=== PATIENT | male | born 1950 | race African-American/Black ===

== ENCOUNTER 2016-06-20 07:44 | Inpatient (IN) ==
[2016-06-20] MEDS ORDERED: ENOXAPARIN 100 MG/ML SYRINGE SUBCUT STA (07:50)
[2016-06-20] MEDS ORDERED: ASPIRIN 325 MG TABLET PO STA (07:50)
[2016-06-20] MEDS ORDERED: NITROGLYCERIN 2% OINT 1 INCH/GM PACK TOP STA (07:50)
[2016-06-20] MEDS ORDERED: ALUM/MAG/SIMETH/LIDO VISC 1:1 30 ML BOTTLE PO STA (07:50)
[2016-06-20] MEDS ORDERED: NITROGLYCERIN SL 0.4 MG TABLET SL PRN (07:50)
[2016-06-20] MEDS ORDERED: MORPHINE 2 MG/1 ML SYRINGE IV PRN (07:50)
[2016-06-20] MEDS ORDERED: METOPROLOL TARTRATE 5 MG/5 ML VIAL IV STA (07:50)
[2016-06-20] MEDS ORDERED: ONDANSETRON 4 MG/2 ML VIAL IV STA (07:50)
--- NOTE | 2016-06-20 07:54 | EKG Report ---
Stationary ECG Study [facility] ER Test Date: 06/20/2016 7:52:27 AM Pat Name: DULCE RENAE Department: Room: Gender: M Prep Cook: : 1950 Requested by: Favio Garcia Order Number: [id number] Reading MD: CHRISTEL ARDON Intervals [place] Rate: 131 P: 999 MS: 0 QRS: -21 QRSD: 118 T: 161 QT: 329 QTc: 406 Interpretive Statements SUPRAVENTRICULAR TACHYCARDIA LOW QRS VOLTAGE IN EXTREMITY LEADS POSSIBLE ANTERIOR MYOCARDIAL INFARCTION, PROBABLY OLD Electronically Signed On 06-20-16 19:06:55 CDT by CHRISTEL ARDON [id number]
--- NOTE | 2016-06-20 07:56 | Emergency Department Note ---
Vitor Malave Jamie, am scribing for, and in the presence of, Favio Valdes MD 07: 53. Keisha Malave James D, MD, personally performed the services described in this documentation, ascribed by David Adler in my presence, and it is both accurate and complete 755 . Arrival - Arrival Limitations: No Limitations Source: Patient, RN Notes Reviewed Time Seen by Provider: 06/20/16 07:47 - History of Present Illness HPI Narrative: Patient is a 65 y/o black male who is presented to the ED by EMS for c/o chest pain associated with SOB, nausea, and vomiting. Patient states sxs onset at approximately 0700 while at dialysis. He reports the pain as mid-sternal and sharp. Patient has a PMHx of cardiac bypass and stents. He denies diaphoresis, fever/chills, or abdominal pain. Onset (ago): hour(s) (1) Consistency: constant Severity: moderate Allergies/Adverse Reactions: Allergies Allergy/AdvReac Type Severity Reaction Status Date / Time No Known Allergies Allergy Verified 05/21/16 06:47 Home Medications: Home Medications Medication Instructions Recorded Confirmed Type Aspirin EC Tab 81 mg PO DAILY #30 tablet 03/25/15 06/20/16 Rx Metoprolol Tartrate Tab [Lopressor 25 mg PO BID #60 tablet 03/25/15 06/20/16 Rx Tab] Nitroglycerin Sl Tab [Nitrostat] 0.4 mg SL Q5M PRN #25 tablet 03/25/15 06/20/16 Rx Pantoprazole Tab [Protonix Tab] 40 mg PO DAILY #30 tablet 03/25/15 06/20/16 Rx Ranolazine [Ranexa] 500 mg PO BID #60 tablet 03/25/15 06/20/16 Rx Atorvastatin [Lipitor] 40 mg PO BEDTIME 05/15/16 06/20/16 History Review of System - Review of System 12 point system: reviewed and no additional remarkable complaints except as stated - Review of System Constitutional: Absent: chills, diaphoresis, fever, weakness Respiratory: Present: respiratory distress. Absent: cough Cardiovascular: Present: chest pain Gastrointestinal: Present: nausea, vomiting. Absent: abdominal pain, diarrhea, constipation Musculoskeletal: Absent: joint swelling Skin: Absent: rash, change in color Neurological: Absent: headache, weakness, numbness, confusion Hematological/Lymphatic: Absent: easy bleeding, easy bruising Medical,Surgical,& Family Hx - Medical History Cardio: History of: CHF, Hypertension, [place] Neurology: History of: TIA Endocrine: History of: Diabetes Mellitus (IDDM), Dyslipidemia Respiratory: History of: Obstructive Sleep Apnea Renal: History of: Dialysis, Renal Failure Gastrointestinal: History of: GI Problems (occasional constipation) Hematology: History of: Anemia - Surgical History Cardiac Surgeries: Sugical HX of: Cardiac Surgery (CABG X2) Thoracic Surgeries: Surgical HX of;: Kidney (Renal Surgery) (cauterized/ embolized to stop bleeding) Patient denies;: Organ Transplant Neurologic Surgeries: Patient denies: Neurologic Surgery Abdominal Surgeries: Surgical HX of: Appendectomy, Cholecystectomy, Colonoscopy - Family History Family History: Reports;: Family Diabetes (mother), Family Hypertension Denies;: Family Cancer, Family Stroke - Social History Smoking Status: Never smoker Exam Vital Signs: Vital Signs Temperature 98.6 F 06/20/16 07:44 Pulse Rate 117 H 06/20/16 07:44 Respiratory Rate 18 06/20/16 08:27 Blood Pressure 103/64 06/20/16 07:44 O2 Sat by Pulse Oximetry 97 06/20/16 07:44 GENERAL: This is a well-nourished well-developed chronically ill appearing black male in no apparent distress. VITAL SIGNS: Reviewed HEENT: Head is atraumatic and normocephalic. Pupils are equal round react to light. Extraocular movements are intact. Oropharynx is benign with moist mucous membranes. NECK: Neck is soft and supple without tenderness. There are no masses. There is no lymphadenopathy. LUNGS: Lungs are clear to auscultation. Chest rises symmetrically. There is no chest wall tenderness. CV: Heart is regular rate and rhythm without murmurs rubs or gallops. ABDOMEN: Abdomen is soft, nontender to palpation. There are no abdominal abnormal masses palpated. There is no organomegaly. Bowel sounds are present and active. SKIN: Skin is warm and dry. No rash. EXTREMITIES: Patient has full range of motion without tenderness. There is no pedal edema. NEUROLOGIC: Awake alert and oriented 4. Cranial nerves II through XII are grossly intact. Motor is 5 over 5 in all extremities bilaterally. Course - Consultations Consultation #1: Discussed with hospitalist. Patient will be admitted to their service. Time: 09:30 Results - Labs CBC & BMP: 06/20/16 08:15 06/20/16 08:15 Lab Results: I have reviewed the patients labs Labs: Laboratory Tests 06/20/16 08:15 RBC 3.21 L Hgb 9.5 L Hct 31.1 L MCHC 30.5 L RDW 18.1 H Morrison % (Auto) 16.2 H Morrison # (Auto) 1.4 H Basophils 2.0 H Laboratory Tests 06/20/16 08:15 Troponin I 0.036 - EKG EKG results: interpreted by ERMD - Impressions EKG: Sinus tachycardia with a rate of 131, low voltage QRS. Normal axis. - Diagnostic Findings Procedure: Chest x-ray: image reviewed by me Disposition Clinical Impression: Chest pain, End stage renal disease, Coronary artery disease Case discussed with: patient Disposition: Still a Patient Condition: Stable Time of Disposition: 09:29
[2016-06-20] MEDS ORDERED: ENOXAPARIN 60 MG/0.6 ML SYRINGE ONE (07:59)
[2016-06-20] MEDS ORDERED: NITROGLYCERIN 2% OINT 1 INCH/GM PACK TOP ONE (07:59)
[2016-06-20] MEDS ORDERED: METOPROLOL TARTRATE 5 MG/5 ML VIAL IV ONE (08:00)
[2016-06-20] MEDS ORDERED: ONDANSETRON 4 MG/2 ML VIAL ONE (08:00)
[2016-06-20] MEDS ORDERED: MORPHINE 2 MG/1 ML SYRINGE ONE (08:00)
[2016-06-20] MEDS ORDERED: ALUM/MAG/SIMETH/LIDO VISC 1:1 30 ML BOTTLE PO ONE (08:00)
[2016-06-20] MEDS ORDERED: ASPIRIN 325 MG TABLET ONE (08:00)
[2016-06-20 08:23] LABS: Basophils # 0.1 10*3/uL (0.0-0.2); Basophils % 0.8 % (0.0-0.8); Eosinophils # 0.4 10*3/uL (0.0-0.87); Eosinophils % 4.3 % (0.00-10.9); Hematocrit 31.1 VOL% (42.0-52.0); Hemoglobin 9.5 GM/DL (14.0-18.0); Immature Granulocytes % 0.3 %; Immature Granulocytes Absolute 0.03 #; Lymphocytes # 2.2 10*3/uL (1.4-4.0); Lymphocytes % 24.8 % (21.2-54.2); Mean Corpuscular HGB Conc 30.5 GM/DL (32-36); Mean Corpuscular Hemoglobin 30 PG (27-34); Mean Corpuscular Volume 96.9 FL (87-102); Monocytes # 1.4 10*3/uL (0.11-0.8); Monocytes % 16.2 % (1.7-12.7); Neutrophils # 4.6 10*3/uL (1.4-7.4); Neutrophils % 53.6 % (38.7-73.9); Platelet Count 205 T/CUMM (130-400); Red Blood Count 3.21 MC/CUMM (3.8-5.5); Red Cell Distribution Width 18.1 % (9.3-17.3); White Blood Count 8.7 T/CUMM (4-12)
[2016-06-20 08:34] LABS: PT Patient Result 10.5 SECS; Partial Thromboplastin Time 34.6 SECS (0-40)
[2016-06-20 08:43] LABS: Eosinophils 3 % (0-10); Hypochromasia 1+; Lymphocytes 21 % (20-55); Segmented Neutrophils 61 % (50-85); Total Cells Counted 100
[2016-06-20 08:44] LABS: Macrocytosis 1+; Platelet Estimate Adequate
[2016-06-20 09:13] LABS: Albumin 3.8 G/DL (3.4-5.0); Bilirubin,Total 0.5 MG/DL (0.2-1.0); Calcium 7.8 MG/DL (8.5-10.1); Osmolality,Calculated 295.1 MOS/KG (273-304); Potassium 3.3 MMOL/L (3.5-5.1); Total Protein 7.5 G/DL (6.4-8.3)
--- NOTE | 2016-06-20 10:26 | Hospitalist History & Physical ---
Assessment and Plan (1) Chest pain Status: Acute Assessment and plan: We will admit and perform full cardiac workup. Will obtain serial troponins, echocardiogram and carotid doppler studies. Will consult Cardiology to assist the management of this patient. Current Visit: No (2) End stage renal disease Status: Chronic Assessment and plan: Will consult Nephrology for management of hemodialysis. Current Visit: No History of Present Illness Chief complaint: chest pain History of present illness: This is a very poor and unfortunate 65 year-old male that presents to the ED today with a chief compliant of chest pain. He has a rather impressive medical history of hypertension, coronary artery disease, end-stage renal disease, diabetes mellitus, ischemic cardiomyopathy, and CABG. Apparently , he was undergoing his hemodialysis treatment today when he suddenly developed chest pain. He reports that he started feeling nauseated intially, then he started experiencing chest pain. In addition, he states that after the onset chest pain, his experienced "chest palpitations". He was given nitroglycerin by the nursing staff, with no improvement of pain. They also administered 81 mg of aspirin; however no relief of pain was noted. He reports seeing a hospitality coordinator under a regular basis. He reports that he has been told that "his arteries have blocked again and that he is not a candidate for surgery because of his condition". He will be admitted to the telemetry unit today for chest pain. We will consult cardiology and nephrology to assist in the management of this patient. Home Medications Medication Instructions Recorded Confirmed Type Aspirin EC Tab 81 mg PO DAILY #30 tablet 03/25/15 06/20/16 Rx Metoprolol Tartrate Tab [Lopressor 25 mg PO BID #60 tablet 03/25/15 06/20/16 Rx Tab] Nitroglycerin Sl Tab [Nitrostat] 0.4 mg SL Q5M PRN #25 tablet 03/25/15 06/20/16 Rx Pantoprazole Tab [Protonix Tab] 40 mg PO DAILY #30 tablet 03/25/15 06/20/16 Rx Ranolazine [Ranexa] 500 mg PO BID #60 tablet 03/25/15 06/20/16 Rx Atorvastatin [Lipitor] 40 mg PO BEDTIME 05/15/16 06/20/16 History Allergies Allergy/AdvReac Type Severity Reaction Status Date / Time No Known Allergies Allergy Verified 05/21/16 06:47 Medical,Surgical,& Family Hx - Medical History Cardio: History of: CHF, Hypertension, [place] Neurology: History of: TIA Endocrine: History of: Diabetes Mellitus (IDDM), Dyslipidemia Respiratory: History of: Obstructive Sleep Apnea Renal: History of: Dialysis, Renal Failure Gastrointestinal: History of: GI Problems (occasional constipation) Hematology: History of: Anemia - Surgical History Cardiac Surgeries: Sugical HX of: Cardiac Surgery (CABG X2) Thoracic Surgeries: Surgical HX of;: Kidney (Renal Surgery) (cauterized/ embolized to stop bleeding) Patient denies;: Organ Transplant Neurologic Surgeries: Patient denies: Neurologic Surgery Abdominal Surgeries: Surgical HX of: Appendectomy, Cholecystectomy, Colonoscopy - Family History Family History: Reports;: Family Diabetes (mother), Family Hypertension Denies;: Family Cancer, Family Stroke - Social History Smoking Status: Never smoker Frequency of Alcohol Use: Occasionally Type of Drug Use: None - Constitutional Constitutional: Present: as per HPI Exam - Constitutional Vitals: Period Temp Pulse Resp BP Sys/Weldon Pulse Ox Last 24 Hr 98.6 F-98.6 F 117-117 18-20 103-103/64-64 97 General appearance: normal weight, mild distress - Head Head exam: Present: normal inspection, normocephalic, atraumatic - Eye Eye exam: Present: EOMI Pupils: Present: DINESH, normal accommodation - Neck Neck exam: Present: normal inspection. Absent: lymphadenopathy, meningismus, thyromegaly - Respiratory Respiratory exam: Present: accessory muscle use, decreased breath sounds. Absent: rales, rhonchi, stridor - Cardiovascular Cardiovascular exam: Present: regular rate and rhythm. Absent: carotid bruit, diastolic murmur, gallop, JVD, rubs, systolic murmur - GI/Abdominal GI/Abdominal exam: Present: normal bowel sounds, soft - Extremities Exam Extremities exam: Present: normal inspection, full ROM, edema - Back Exam Back exam: Present: normal inspection - Neurological Exam Neurological exam: Present: alert, oriented X3, CN II-XII intact - Psychiatric Psychiatric exam: Present: normal affect, normal mood - Skin Skin exam: Present: normal color, dry Results - Labs CBC & BMP: 06/20/16 08:15 06/20/16 08:15 Lab Results: I have reviewed the past 24 hour labs Quality Measures - AMI Contraindication to ACEI/ARB: other (ESRD) Contraindications to ASA on arrival: other (Given at HD prior to arrival)
--- NOTE | 2016-06-20 11:50 | EKG Report ---
Stationary ECG Study [facility] Test Date: 06/20/2016 11:43:37 AM Pat Name: DULCE RENAE Department: Room: 272 Gender: M Contact Center Rep: : 1950 Requested by: Favio Garcia Order Number: [id number] Reading MD: CHRISTEL ARDON Intervals [place] Rate: 132 P: 999 MA: 0 QRS: -24 QRSD: 103 T: 82 QT: 329 QTc: 407 Interpretive Statements ATRIAL TACHYCARDIA WITH RAPID VENTRICULAR RESPONSE BORDERLINE LEFT AXIS DEVIATION NONSPECIFIC T-WAVE ABNORMALITY Electronically Signed On 06-20-16 20:12:31 CDT by CHRISTEL ARDON [id number]
--- NOTE | 2016-06-20 12:53 | Nephrology Consult Note ---
History of Present Illness Chief complaint: End-stage renal disease History of present illness: Mr. Pena is a 65 year old male and history of end-stage renal disease due to hypertension and diabetes is very well known to this service. At dialysis today patient became tachycardic as breast chest pain and low blood pressure. At that time, patient had been on dialysis for approximately an hour and had a about 500 cc of fluid. He responded to a nitro patch and oxygen and was transferred to the emergency department. At this time patient is resting comfortably. Heart rate has continued to improve with a rate of about 100. Blood pressure is stable at 138/78. Nephrology is been consulted for renal issues. This gentleman is known to be a high weight gain or he is approximately 4-40 half kilograms above his dry weight. At this time will make to start preparation for patient to dialyze. Home Medications Medication Instructions Recorded Confirmed Type Aspirin EC Tab 81 mg PO DAILY #30 tablet 03/25/15 06/20/16 Rx Metoprolol Tartrate Tab [Lopressor 25 mg PO BID #60 tablet 03/25/15 06/20/16 Rx Tab] Nitroglycerin Sl Tab [Nitrostat] 0.4 mg SL Q5M PRN #25 tablet 03/25/15 06/20/16 Rx Pantoprazole Tab [Protonix Tab] 40 mg PO DAILY #30 tablet 03/25/15 06/20/16 Rx Ranolazine [Ranexa] 500 mg PO BID #60 tablet 03/25/15 06/20/16 Rx Atorvastatin [Lipitor] 40 mg PO BEDTIME 05/15/16 06/20/16 History Allergies Allergy/AdvReac Type Severity Reaction Status Date / Time No Known Allergies Allergy Verified 05/21/16 06:47 Medical,Surgical,& Family Hx - Medical History Cardio: History of: CHF, Hypertension, [place] Neurology: History of: TIA Endocrine: History of: Diabetes Mellitus (IDDM), Dyslipidemia Respiratory: History of: Obstructive Sleep Apnea Renal: History of: Dialysis, Renal Failure Gastrointestinal: History of: GI Problems (occasional constipation) Hematology: History of: Anemia - Surgical History Cardiac Surgeries: Sugical HX of: Cardiac Surgery (CABG X2) Thoracic Surgeries: Surgical HX of;: Kidney (Renal Surgery) (cauterized/ embolized to stop bleeding) Patient denies;: Organ Transplant, Lobectomy Neurologic Surgeries: Patient denies: Neurologic Surgery Abdominal Surgeries: Surgical HX of: Abdominal Surgery, Appendectomy, Cholecystectomy, Colonoscopy Reproductive Surgeries: Surgical HX of;: Genitourinary Surgery - Family History Family History: Reports;: Family Diabetes (mother), Family Hypertension Denies;: Family Cancer, Family Stroke - Social History Smoking Status: Never smoker Frequency of Alcohol Use: Occasionally Type of Drug Use: None Review of Systems Constitutional: no anorexia, no chills, no fever(s) Cardiovascular: chest pain at rest, no dyspnea Respiratory: no cough Gastrointestinal: no abdominal pain Exam - Vital Signs Vital signs: Period Temp Pulse Resp BP Sys/Weldon Pulse Ox Last 24 Hr 97.6 F 86-118 18-18 115-138/68-83 99-100 - General Appearance General appearance: well-developed, well-nourished EENT: ATNC Neck: supple Respiratory: clear Cardiology: edema (2+ lower extremity edema), regular rate, regular rhythm Gastrointestinal: normoactive bowel sounds Neurologic: alert and oriented x3, CN 3-12 intact Musculoskeletal: no erythema, no clubbing Results - Labs CBC & BMP: 06/20/16 08:15 06/20/16 08:15 Assessment and Plan (1) Chest pain Status: Acute Assessment and plan: The patient has a history of cardiac disease. Cardiology has been consulted. Current Visit: No (2) End stage renal disease Status: Chronic Assessment and plan: Plan for hemodialysis today. We will remove 2-3 L of fluid in this patient. Current Visit: No (3) Hypertension Status: Chronic Current Visit: No Qualifiers: Hypertension type: essential hypertension Qualified Code(s): I10 - Essential (primary) hypertension (4) Diabetes mellitus Status: Chronic Current Visit: No Qualifiers: Diabetes mellitus type: type 2 Diabetes mellitus complication detail: with chronic kidney disease Chronic kidney disease stage: on chronic dialysis (5) Secondary hyperparathyroidism Status: Chronic Current Visit: No (6) Dyslipidemia Status: Chronic Current Visit: No (7) Ischemic cardiomyopathy Status: Chronic Current Visit: No (8) Hx of CABG Status: Acute Current Visit: No
--- NOTE | 2016-06-20 12:56 | Dialysis Note ---
Dialysis Note - Dialysis Note Patient is seen on dialysis. He is tolerating the procedure. Blood pressure is 80/60. Heart rate is slightly elevated continue to monitor closely.
[2016-06-20] MEDS ORDERED: DEXTROSE 50% 25 GM/50 ML VIAL IV PRN (13:47)
[2016-06-20] MEDS ORDERED: GLUCAGON 1 MG VIAL IM PRN (13:47)
[2016-06-20] MEDS ORDERED: RANOLAZINE 500 MG TABLET PO SCH (14:00)
[2016-06-20] MEDS: METOPROLOL TARTRATE 25 MG TABLET PO SCH ×2 (14:06→21:27)
[2016-06-20] MEDS: PANTOPRAZOLE 40 MG TABLET PO SCH (14:06)
[2016-06-20] MEDS: ASPIRIN EC 81 MG TABLET PO SCH (14:06)
--- NOTE | 2016-06-20 15:13 | EKG Report ---
Stationary ECG Study [facility] Test Date: 06/20/2016 3:13:44 PM Pat Name: DULCE RENAE Department: Room: 272 Gender: M Classifier Operator: LYN : 1950 Requested by: Favio Garcia Order Number: [id number] Reading MD: CHRISTEL ARDON Intervals [place] Rate: 116 P: 80 WI: 205 QRS: -28 QRSD: 104 T: 103 QT: 370 QTc: 439 Interpretive Statements SINUS TACHYCARDIA LOW QRS VOLTAGE IN PRECORDIAL LEADS POSSIBLE ANTERIOR MYOCARDIAL INFARCTION, OF INDETERMINATE AGE INFERIOR MYOCARDIAL INFARCTION, OF INDETERMINATE AGE Electronically Signed On 06-20-16 20:15:06 CDT by CHRISTEL ARDON [email or web address]
--- NOTE | 2016-06-20 16:42 | Cardiology Consult Note ---
Assessment and Plan - Time spent with patient Time spent with patient: Greater than 30 minutes (Chart review film review examination and review documentation and orders) (1) Unstable angina Status: Acute Assessment and plan: This appears to be unstable angina. The patient is also had some problems with blood pressure recommend maximizing management. Likely will need repeat left heart catheterization selective coronary angiography. His last heart cath he had no major epicardial stenosis that was amenable to PCI nothing that could be adequately revascularized with coronary artery bypass grafting. I will increase his Ranexa and his other medications. His blood pressure will not allow much in the way of other therapies at this time Current Visit: Yes (2) Anemia, chronic disease Status: Chronic Current Visit: Yes (3) Coronary artery disease Status: Chronic Current Visit: Yes Qualifiers: Coronary Disease-Associated Artery/Lesion type: [place] artery [place] vs. transplanted heart: [place] heart Associated angina: with unstable angina Qualified Code(s): I25.110 - Atherosclerotic heart disease of [place] coronary artery with unstable angina pectoris (4) End stage renal disease Status: Chronic Current Visit: Yes (5) Hx of CABG Status: Chronic Current Visit: No (6) Diabetes mellitus Status: Chronic Current Visit: No Qualifiers: Diabetes mellitus type: type 2 Diabetes mellitus complication detail: with chronic kidney disease Chronic kidney disease stage: on chronic dialysis (7) Dyslipidemia Status: Chronic Current Visit: No History of Present Illness - Data of Consult Patient: known to practice within the last 3 years Consult date: 06/20/16 Requesting Physician: Maude Goldstein - Consult Narrative Reason for consult: Chest pain History of present illness: Mr. Pena is a 65 year old male with history of severe known coronary arm artery disease and ischemic cardiomyopathy. Patient was last cath in February [address] Boby Bautista. His primary slate cutter is Dr. Mario Contreras. I reviewed the films from 03/24/2015 patient had a left heart catheterization that showed severe [place] coronary disease and a few small vessel disease she he had a percent occluded RCA with a saphenous vein graft supplying the RCA is diffuse small vessel disease in the [place] arteries but no high-grade stenosis in the saphenous vein graft. There is a saphenous vein graft to obtuse marginal this circulatory system also was highly diseased he has a very nice APRIL to a highly diseased LAD at that time. Due to the severity of his small vessel disease and the adequacy of targets for percutaneous intervention the patient was treated medically at that time. He had a depressed EF as well. The patient states that he frequently gets chest discomfort with dialysis. Today he went to dialysis and had chest discomfort associated with nausea even before dialysis started after dialysis started got worse with about 500 cc removed he simply was brought to the emergency room. His EKG shows sinus tachycardia with no diagnostic ST segment changes. Patient is admitted to the hospitalist service nephrology and cardiology consulted. The patient's blood pressure has been low. He is anemic. CC: Maude Goldstein MD - Home Medications and Allergies Home Medications: Home Medications Medication Instructions Recorded Confirmed Type Aspirin EC Tab 81 mg PO DAILY #30 tablet 03/25/15 06/20/16 Rx Metoprolol Tartrate Tab [Lopressor 25 mg PO BID #60 tablet 03/25/15 06/20/16 Rx Tab] Nitroglycerin Sl Tab [Nitrostat] 0.4 mg SL Q5M PRN #25 tablet 03/25/15 06/20/16 Rx Pantoprazole Tab [Protonix Tab] 40 mg PO DAILY #30 tablet 03/25/15 06/20/16 Rx Ranolazine [Ranexa] 500 mg PO BID #60 tablet 03/25/15 06/20/16 Rx Atorvastatin [Lipitor] 40 mg PO BEDTIME 05/15/16 06/20/16 History Allergies/Adverse Reactions: Allergies Allergy/AdvReac Type Severity Reaction Status Date / Time No Known Allergies Allergy Verified 05/21/16 06:47 - Constitutional Constitutional: Present: fatigue, malaise. Absent: anorexia - EENT Eyes: Absent: blurry vision Ears: Absent: decreased hearing, ear discharge Nose, mouth and throat: Absent: dysphagia, sore throat, throat swelling - Cardiovascular Cardiovascular: Present: chest pain at rest, chest pain with activity, dyspnea, dyspnea on exertion. Absent: orthopnea, palpitations - Respiratory Respiratory: Present: dyspnea, dyspnea on exertion - Gastrointestinal Gastrointestinal: Present: constipation, nausea. Absent: abdominal pain - Musculoskeletal Musculoskeletal: Present: arthralgias, myalgias - Psychiatric Psychiatric: Absent: anxiety, depression, panic attacks, suicidal ideation - Endocrine Endocrine: Present: cold intolerance. Absent: heat intolerance - Hematologic/Lymphatic Hematologic/Lymphatic: Absent: easy bleeding, easy bruising Medical,Surgical,& Family Hx - Medical History Cardio: History of: CHF (Ischemic cardiomyopathy with chronic systolic and diastolic heart failure), Hypertension, [place] Neurology: History of: TIA Endocrine: History of: Diabetes Mellitus (IDDM), Dyslipidemia Respiratory: History of: Obstructive Sleep Apnea Renal: History of: Dialysis, Renal Failure Gastrointestinal: History of: GI Problems (occasional constipation) Hematology: History of: Anemia - Surgical History Cardiac Surgeries: Sugical HX of: Cardiac Surgery (CABG X 3 vessel) Thoracic Surgeries: Surgical HX of;: Kidney (Renal Surgery) (cauterized/ embolized to stop bleeding) Patient denies;: Organ Transplant, Lobectomy Neurologic Surgeries: Patient denies: Neurologic Surgery Abdominal Surgeries: Surgical HX of: Abdominal Surgery, Appendectomy, Cholecystectomy, Colonoscopy Reproductive Surgeries: Surgical HX of;: Genitourinary Surgery - Family History Family History: Reports;: Family Diabetes (mother), Family Hypertension Denies;: Family Cancer, Family Stroke - Social History Smoking Status: Never smoker Frequency of Alcohol Use: Occasionally Type of Drug Use: None Marital Status: Lives With:: Spouse Functional capacity: independent ambulation Physical Examination Vital Signs Temp Pulse Resp BP Pulse Ox 98.6 F 117 H 20 103/64 97 06/20/16 07:44 06/20/16 07:44 06/20/16 07:44 06/20/16 07:44 06/20/16 07:44 General: Present: Appears Well Neck: Present: Supple Neck, Midline Trachea Cardiac: Present: Reg Rate and Rhythm, S1/S2 (Tones are quite distant), S4 Lungs: Present: Normal Exam Neuro: Present: Cranial Nerve 2-12 Intact Abdomen: Present: Soft, Active Bowel Sounds Skin: Present: Clear Extremities: Absent: Edema Result/EKG - Labs CBC & BMP: 06/20/16 08:15 06/20/16 08:15 Labs: Laboratory Results - last 24 hr 06/20/16 06/20/16 06/20/16 11:32 14:29 15:46 POC Glucose 198 H 274 H Troponin I 1.100 H D - EKG EKG results: interpreted by me (Sinus tachycardia with no diagnostic ST segment changes) Quality Measures - Stroke Symptom Onset Unknown: No - AMI Contraindication to ACEI/ARB: other (ESRD) Contraindications to ASA on arrival: other (Given at HD prior to arrival)
[2016-06-20] MEDS ORDERED: CLOPIDOGREL 300 MG TABLET PO ONE (16:48)
[2016-06-20] MEDS: RANOLAZINE 500 MG TABLET PO SCH (21:27)
[2016-06-20] MEDS: ATORVASTATIN 40 MG TABLET PO SCH (21:27)
[2016-06-21 05:25] LABS: Osmolality,Calculated 291.3 MOS/KG (273-304); Potassium 4.2 MMOL/L (3.5-5.1)
[2016-06-21 05:33] LABS: Basophils # 0.1 10*3/uL (0.0-0.2); Eosinophils # 0.3 10*3/uL (0.0-0.87); Eosinophils % 3.6 % (0.00-10.9); Hematocrit 29.3 VOL% (42.0-52.0); Hemoglobin 8.8 GM/DL (14.0-18.0); Immature Granulocytes % 0.7 %; Immature Granulocytes Absolute 0.05 #; Lymphocytes # 1.6 10*3/uL (1.4-4.0); Lymphocytes % 21.6 % (21.2-54.2); Mean Corpuscular Hemoglobin 29 PG (27-34); Mean Corpuscular Volume 96.7 FL (87-102); Mean Platelet Volume 11.8 FL (9.6-12.0); Monocytes # 1.2 10*3/uL (0.11-0.8); Neutrophils # 4.1 10*3/uL (1.4-7.4); Neutrophils % 56.1 % (38.7-73.9); Platelet Count 191 T/CUMM (130-400); Red Blood Count 3.03 MC/CUMM (3.8-5.5); White Blood Count 7.3 T/CUMM (4-12)
[2016-06-21 05:59] LABS: Band Neutrophils 2 % (0-10); Eosinophils 1 % (0-10); Lymphocytes 19 % (20-55); Nucleated Red Blood Cells 1 (0-5); Segmented Neutrophils 64 % (50-85); Total Cells Counted 100
[2016-06-21 06:00] LABS: Hypochromasia 1+; Macrocytosis 1+
[2016-06-21 06:01] LABS: Platelet Estimate Adequate
--- NOTE | 2016-06-21 08:32 | Nephrology Progress Note ---
Nephrology - PN: Subj Interval history: The patient is sitting up in chair this morning he complains of not been able to hear. No pain associated with decreased hearing. He has been able to ambulate in his room without event there is been no other neurologic changes. Blood pressure has been about the same with systolic blood pressures of 110. He denies any shortness of breath. Exam (PN)-Nephrology - Vital Signs Vital signs: Period Temp Pulse Resp BP Sys/Weldon Pulse Ox Last 24 Hr 97.2 F-98.7 F 74-118 18-91 75-138/40-83 91-100 - General Appearance General appearance: well-developed, well-nourished EENT: ATNC Neck: supple Respiratory: clear Cardiology: no edema, regular rate, regular rhythm Gastrointestinal: normoactive bowel sounds, no tenderness Integumentary: no rash Neurologic: alert and oriented x3 Musculoskeletal: no clubbing - Lab 06/21/16 04:32 06/21/16 04:32 Most recent lab results Calcium 8.0 MG/DL (8.5-10.1) L 06/21/16 04:32 Assessment and Plan (1) Chest pain Status: Acute Assessment and plan: The patient has a history of cardiac disease. Appreciate input from cardiology. Current Visit: No (2) End stage renal disease Status: Chronic Assessment and plan: Continue with scheduled hemodialysis. Current Visit: No (3) Hypertension Status: Chronic Current Visit: No Qualifiers: Hypertension type: essential hypertension Qualified Code(s): I10 - Essential (primary) hypertension (4) Diabetes mellitus Status: Chronic Current Visit: No Qualifiers: Diabetes mellitus type: type 2 Diabetes mellitus complication detail: with chronic kidney disease Chronic kidney disease stage: on chronic dialysis (5) Secondary hyperparathyroidism Status: Chronic Current Visit: No (6) Dyslipidemia Status: Chronic Current Visit: No (7) Ischemic cardiomyopathy Status: Chronic Current Visit: No (8) Hx of CABG Status: Chronic Current Visit: No (9) Decreased hearing Status: Acute Current Visit: Yes (10) Decreased hearing of both ears Status: Acute Assessment and plan: Etiology is in question. Will do Cortisporin otic eardrops. As for an ENT consult on tomorrow. If there are further changes as relates to nausea vomiting orthostatic changes will get a CT of the head. Current Visit: Yes
[2016-06-21] MEDS: RANOLAZINE 500 MG TABLET PO SCH ×2 (08:42→20:44)
[2016-06-21] MEDS: METOPROLOL TARTRATE 25 MG TABLET PO SCH ×2 (08:42→20:43)
[2016-06-21] MEDS: CLOPIDOGREL 75 MG TABLET PO SCH (08:42)
[2016-06-21] MEDS: PANTOPRAZOLE 40 MG TABLET PO SCH (08:42)
[2016-06-21] MEDS: ASPIRIN EC 81 MG TABLET PO SCH (08:42)
[2016-06-21] MEDS ORDERED: diphenhydrAMINE CAP 25 MG CAPSULE PO ONE (09:15)
[2016-06-21] MEDS ORDERED: DIAZEPAM 5 MG TABLET PO ONE (09:15)
--- NOTE | 2016-06-21 09:15 | Cardiology Progress Note ---
Assessment and Plan (1) Unstable angina Status: Acute Assessment and plan: This appears to be unstable angina. The patient is also had some problems with blood pressure recommend maximizing management. Likely will need repeat left heart catheterization selective coronary angiography. His last heart cath he had no major epicardial stenosis that was amenable to PCI nothing that could be adequately revascularized with coronary artery bypass grafting. I will increase his Ranexa and his other medications. His blood pressure will not allow much in the way of other therapies at this time. Anticipate repeat left heart cath tomorrow Current Visit: Yes (2) Anemia, chronic disease Status: Chronic Current Visit: Yes (3) Coronary artery disease Status: Chronic Current Visit: Yes Qualifiers: Coronary Disease-Associated Artery/Lesion type: [place] artery [place] vs. transplanted heart: [place] heart Associated angina: with unstable angina Qualified Code(s): I25.110 - Atherosclerotic heart disease of [place] coronary artery with unstable angina pectoris (4) End stage renal disease Status: Chronic Current Visit: Yes (5) Hx of CABG Status: Chronic Current Visit: No (6) Diabetes mellitus Status: Chronic Current Visit: No Qualifiers: Diabetes mellitus type: type 2 Diabetes mellitus complication detail: with chronic kidney disease Chronic kidney disease stage: on chronic dialysis (7) Dyslipidemia Status: Chronic Current Visit: No Cardiology - PN: Subj Interval history: Mr. Pena is unable to communicate today because of absence of his hearing aids. It is very difficult to communicate with him. He continues to ask questions and then when I talked to him he says he cannot hear. I discussed with the patient and his yesterday when he could apparently here that I recommended left heart possible given his symptoms. It has been sometime since he has had angiography and he has what seems to be rather classic unstable angina he also had a very mild elevation of his troponin last night. He does not appear to have any more chest discomfort. Dr. Contreras is his primary last model department supervisor and I will anticipate he will cath in the morning. I will set the appropriate orders in motion and I have scheduled to follow at 9:00 case in the morning. He will be n.p.o. after midnight. Hopefully his dialysis can be postponed until after this heart cath. Exam (Progress Note) - Constitutional Vitals: Period Temp Pulse Resp BP Sys/Weldon Pulse Ox Last 24 Hr 97.2 F-98.7 F 74-118 18-91 75-138/40-83 91-100 General appearance: over weight - Head Head exam: Absent: abrasion - ENT ENT exam: Present: other (Poor dentition) - Neck Neck exam: Present: normal inspection - Respiratory Respiratory exam: Present: rhonchi (Improved some with cough) - Cardiovascular Cardiovascular exam: Present: regular rate and rhythm - GI/Abdominal GI/Abdominal exam: Present: normal bowel sounds - Extremities Exam Extremities exam: Present: normal inspection (He has no edema) - Neurological Exam Neurological exam: Present: alert, oriented X3, other (Extremely hard of hearing ) - Psychiatric Psychiatric exam: Present: normal affect, normal mood - Skin Skin exam: Present: normal color, warm Result/EKG - Labs CBC & BMP: 06/21/16 04:32 06/21/16 04:32 Labs: Laboratory Results - last 24 hr 06/20/16 06/20/16 06/20/16 11:32 14:29 15:46 WBC RBC Hgb Hct MCV MCH MCHC RDW Plt Count MPV Neut % (Auto) Lymph % (Auto) Terry % (Auto) Eos % (Auto) Baso % (Auto) Neut # (Auto) Lymph # (Auto) Terry # (Auto) Eos # (Auto) Baso # (Auto) Total Counted Immature Gran % Nucleated RBC % Immature Gran # Segmented Neutrophils Band Neutrophils Lymphocytes Monocytes Eosinophils Basophils Nucleated RBCs Nucleated RBCs # Platelet Estimate Hypochromasia Macrocytosis Sodium Potassium Chloride Carbon Dioxide Anion Gap BUN Creatinine GFR Calculation BUN/Creatinine Ratio Glucose POC Glucose 198 H 274 H Calculated Osmolality Calcium Troponin I 1.100 H D 06/20/16 06/21/16 06/21/16 20:00 04:32 04:32 WBC 7.3 RBC 3.03 L Hgb 8.8 L Hct 29.3 L MCV 96.7 MCH 29 MCHC 30.0 L RDW 18.0 H Plt Count 191 MPV 11.8 Neut % (Auto) 56.1 Lymph % (Auto) 21.6 Terry % (Auto) 17.0 H Eos % (Auto) 3.6 Baso % (Auto) 1.0 H Neut # (Auto) 4.1 Lymph # (Auto) 1.6 Terry # (Auto) 1.2 H Eos # (Auto) 0.3 Baso # (Auto) 0.1 Total Counted 100 Immature Gran % 0.7 Nucleated RBC % 0.0 Immature Gran # 0.05 Segmented Neutrophils 64 Band Neutrophils 2 Lymphocytes 19 L Monocytes 13 Eosinophils 1 Basophils 1.0 H Nucleated RBCs 1 Nucleated RBCs # 0.00 Platelet Estimate Adequate Hypochromasia 1+ Macrocytosis 1+ Sodium 141 Potassium 4.2 Chloride 102 Carbon Dioxide 27 Anion Gap 16.2 H BUN 35 H Creatinine 7.60 H GFR Calculation 9 BUN/Creatinine Ratio 4.00 L Glucose 159 H POC Glucose 227 H Calculated Osmolality 291.3 Calcium 8.0 L Troponin I 06/21/16 07:51 WBC RBC Hgb Hct MCV MCH MCHC RDW Plt Count MPV Neut % (Auto) Lymph % (Auto) Terry % (Auto) Eos % (Auto) Baso % (Auto) Neut # (Auto) Lymph # (Auto) Terry # (Auto) Eos # (Auto) Baso # (Auto) Total Counted Immature Gran % Nucleated RBC % Immature Gran # Segmented Neutrophils Band Neutrophils Lymphocytes Monocytes Eosinophils Basophils Nucleated RBCs Nucleated RBCs # Platelet Estimate Hypochromasia Macrocytosis Sodium Potassium Chloride Carbon Dioxide Anion Gap BUN Creatinine GFR Calculation BUN/Creatinine Ratio Glucose POC Glucose 161 H Calculated Osmolality Calcium Troponin I Quality Measures - Stroke Symptom Onset Unknown: No - AMI Contraindication to ACEI/ARB: other (ESRD) Contraindications to ASA on arrival: other (Given at HD prior to arrival)
[2016-06-21] MEDS: NEOMYCIN/POLYMYXIN/HC OTIC SOLN 10 ML BOTTLE BOTH EARS SCH ×3 (10:39→20:45)
--- NOTE | 2016-06-21 15:14 | Hospitalist Progress Note ---
Assessment and Plan - Time spent with patient Time spent with patient: Greater than 30 minutes (1) Chest pain Status: Acute Assessment and plan: Troponin was noted to elevate. Cardiology is on board and I appreciate their assistance. Based on knowing it appears the patient may likely have a left heart cath tomorrow. Current Visit: Yes (2) Decreased hearing of both ears Status: Acute Assessment and plan: Continue steroid drops and consult to ENT. Current Visit: Yes (3) Coronary artery disease Status: Chronic Assessment and plan: See above. Continue home medications. Current Visit: Yes Qualifiers: Coronary Disease-Associated Artery/Lesion type: [place] artery [place] vs. transplanted heart: [place] heart Associated angina: with unstable angina Qualified Code(s): I25.110 - Atherosclerotic heart disease of [place] coronary artery with unstable angina pectoris (4) End stage renal disease Status: Chronic Assessment and plan: Continue dialysis. Current Visit: Yes (5) Diabetes mellitus Status: Chronic Assessment and plan: Continue current management. Current Visit: No Qualifiers: Diabetes mellitus type: type 2 Diabetes mellitus complication detail: with chronic kidney disease Chronic kidney disease stage: on chronic dialysis (6) Hypertension Status: Chronic Assessment and plan: Continue medications. Current Visit: No Qualifiers: Hypertension type: essential hypertension Qualified Code(s): I10 - Essential (primary) hypertension (7) Ischemic cardiomyopathy Status: Chronic Assessment and plan: Stable. Continue medications. Current Visit: No (8) Rhonchi Status: Acute Assessment and plan: We will obtain a chest x-ray. Current Visit: Yes Hospitalist: Subjective Interval history: Patient states yesterday he woke up with sudden hearing loss in both ears. This morning the patient received steroid eardrops and a consult to ENT. He still has very little hearing bilaterally and his family states this is not normal. He has had no chest pain while hospitalized. Exam - Constitutional Vitals: Period Temp Pulse Resp BP Sys/Weldon Pulse Ox Last 24 Hr 97.2 F-98.7 F 72-116 18-91 75-104/40-63 91-99 General appearance: no acute distress - Head Head exam: Present: normocephalic, atraumatic - Eye Eye exam: Present: EOMI Pupils: Present: DINESH - ENT ENT exam: Present: normal exam - Neck Neck exam: Present: normal inspection - Respiratory Respiratory exam: Present: rhonchi. Absent: wheezes - Cardiovascular Cardiovascular exam: Present: regular rate and rhythm. Absent: gallop, rubs, systolic murmur - GI/Abdominal GI/Abdominal exam: Present: normal bowel sounds, soft. Absent: distended, firm , guarding, tenderness, rebound - Extremities Exam Extremities exam: Present: normal inspection. Absent: calf tenderness, edema Results - Labs CBC & BMP: 06/21/16 04:32 06/21/16 04:32 Lab Results: I have reviewed the past 24 hour labs Quality Measures - Stroke Symptom Onset Unknown: No - AMI Contraindication to ACEI/ARB: other (ESRD) Contraindications to ASA on arrival: other (Given at HD prior to arrival)
--- NOTE | 2016-06-21 18:41 | XRay Report ---
History is chest pain Comparison 05/21/2016 The heart is at the upper range of normal in size with sequelae of prior median sternotomy. A presumed venous stent overlies superior mediastinum No congestive failure or confluent infiltrate is seen. Impression: Stable portable chest PROCEDURE INTERPRETED AT [facility] DEPARTMENT OF RADIOLOGY Final Report Signed by: Dr. Ember Avalos
[2016-06-21] MEDS: ATORVASTATIN 40 MG TABLET PO SCH (20:44)
[2016-06-22 04:17] LABS: Basophils # 0.1 10*3/uL (0.0-0.2); Basophils % 0.8 % (0.0-0.8); Eosinophils # 0.2 10*3/uL (0.0-0.87); Eosinophils % 2.5 % (0.00-10.9); Hematocrit 31.2 VOL% (42.0-52.0); Hemoglobin 9.1 GM/DL (14.0-18.0); Immature Granulocytes % 0.4 %; Immature Granulocytes Absolute 0.03 #; Lymphocytes # 1.9 10*3/uL (1.4-4.0); Lymphocytes % 22.9 % (21.2-54.2); Mean Corpuscular HGB Conc 29.2 GM/DL (32-36); Mean Corpuscular Hemoglobin 29 PG (27-34); Mean Corpuscular Volume 98.1 FL (87-102); Mean Platelet Volume 11.5 FL (9.6-12.0); Monocytes # 1.3 10*3/uL (0.11-0.8); Monocytes % 15.2 % (1.7-12.7); Neutrophils # 4.9 10*3/uL (1.4-7.4); Neutrophils % 58.2 % (38.7-73.9); Platelet Count 201 T/CUMM (130-400); Red Blood Count 3.18 MC/CUMM (3.8-5.5); Red Cell Distribution Width 17.6 % (9.3-17.3); White Blood Count 8.4 T/CUMM (4-12)
[2016-06-22 04:40] LABS: Calcium 7.9 MG/DL (8.5-10.1); Osmolality,Calculated 292.3 MOS/KG (273-304); Potassium 4.6 MMOL/L (3.5-5.1)
[2016-06-22] MEDS ORDERED: DIAZEPAM 5 MG TABLET PO ONE (06:00)
[2016-06-22] MEDS ORDERED: diphenhydrAMINE CAP 25 MG CAPSULE PO ONE (06:00)
[2016-06-22] MEDS: ASPIRIN EC 81 MG TABLET PO SCH (09:08)
[2016-06-22] MEDS: PANTOPRAZOLE 40 MG TABLET PO SCH (09:09)
[2016-06-22] MEDS: CLOPIDOGREL 75 MG TABLET PO SCH (09:09)
[2016-06-22] MEDS: METOPROLOL TARTRATE 25 MG TABLET PO SCH ×2 (09:09→21:35)
[2016-06-22] MEDS: NEOMYCIN/POLYMYXIN/HC OTIC SOLN 10 ML BOTTLE BOTH EARS SCH (09:11)
[2016-06-22] MEDS: RANOLAZINE 500 MG TABLET PO SCH ×2 (09:14→21:35)
[2016-06-22] MEDS ORDERED: HEPARIN/NACL 0.9% 2 UNITS/ML 0 ML IV ONE (10:41)
[2016-06-22] MEDS ORDERED: LIDOCAINE 1%/EPI INJ 20 ML VIAL ONE (10:41)
[2016-06-22 10:57] LABS: ABG HCO3 27.2 MMOL/L (20-26); ABG Oxygen Saturation 86.6 % (95-100); ABG PCO2 64.7 MM HG (35-48); ABG PH 7.241 (7.35-7.45); ABG PO2 61.2 MM HG (80-95); ABG TCO2 29.2 MMOL/L (23-27); Pt O2 Delivery Device BIPAP
--- NOTE | 2016-06-22 12:16 | XRay Report ---
XR chest 1V portable Indication: Low oxygen saturation. Shortness of breath. Chest one view: Comparison 06/21/2016. Slight increase in pulmonary vascular congestion noted centrally. Lungs remain hypoinflated without a discrete infiltrate shown. Borderline cardiomegaly, calcified atheromatous disease, postoperative changes median sternotomy and innominate vein stent are all stable. Impression: Mild worsening pulmonary vascular congestion centrally. PROCEDURE INTERPRETED AT [facility] DEPARTMENT OF RADIOLOGY Final Report Signed by: Mina Ambriz M.D.
--- NOTE | 2016-06-22 12:33 | Pulmonology Consult Note ---
Assessment and Plan (1) Obstructive sleep apnea Status: Acute Assessment and plan: Patient has not been using his CPAP regularly at night. I do not know the details of this diagnosis. Current Visit: Yes (2) Obesity hypoventilation syndrome Status: Acute Assessment and plan: I suspect he has obesity hypoventilation syndrome that was aggravated by preop for his cardiac catheterization. Agree with using BiPAP and allowing medication to get out of his system. If he still needs a catheterization would either use general anesthesia or minimal sedation. Current Visit: Yes (3) Chest pain Status: Acute Current Visit: Yes (4) Decreased hearing Status: Acute Assessment and plan: Etiology of this is not clear Current Visit: Yes (5) End stage renal disease Status: Chronic Assessment and plan: He is due for dialysis later today or tomorrow. Current Visit: No (6) Ischemic cardiomyopathy Status: Chronic Assessment and plan: No signs of active congestive heart failure. Current Visit: No History of Present Illness Chief complaint: Decreased level of consciousness History of present illness: Mr. Pena is a 65 year old male is 44 who had unstable angina and wants to have a heart cath this morning. He got some premedication this morning and since then has been lethargic. He has a history of sleep apnea and has a CPAP device that he does not use regularly at home. The catheterization was canceled. He had arterial blood gases showing an elevated PCO2 of 64 with a PO2 61 pH 7.24. He is now on facemask BiPAP. I can get him awake to examination but he is still pretty sleepy. He is said to be a non-smoker and no no history of previous lung disease. He does have end-stage renal disease is on dialysis. He has had previous coronary bypass surgery and has with combination change in ischemic cardiomyopathy. Home Medications Medication Instructions Recorded Confirmed Type Aspirin EC Tab 81 mg PO DAILY #30 tablet 03/25/15 06/20/16 Rx Metoprolol Tartrate Tab [Lopressor 25 mg PO BID #60 tablet 03/25/15 06/20/16 Rx Tab] Nitroglycerin Sl Tab [Nitrostat] 0.4 mg SL Q5M PRN #25 tablet 03/25/15 06/20/16 Rx Pantoprazole Tab [Protonix Tab] 40 mg PO DAILY #30 tablet 03/25/15 06/20/16 Rx Ranolazine [Ranexa] 500 mg PO BID #60 tablet 03/25/15 06/20/16 Rx Atorvastatin [Lipitor] 40 mg PO BEDTIME 05/15/16 06/20/16 History Allergies Allergy/AdvReac Type Severity Reaction Status Date / Time No Known Allergies Allergy Verified 05/21/16 06:47 ROS unobtainable: due to mental status Exam (Pulmonay) H&P - Constitutional Vitals: Period Temp Pulse Resp BP Sys/Weldon Pulse Ox Last 24 Hr 97.0 F-98.1 F 66-76 18-20 96-135/52-67 91-100 Exam: Vital signs normal. O2 sat 100% on current facemask BiPAP settings. HEENT: Pupils react to light, throat is clear. neck supple no bruits. Chest sounds clear equal breath sounds. Heart normal rate rhythm no murmurs. Abdomen soft nontender no masses. Bowel sounds present. Extremities no clubbing cyanosis edema. Calves nontender. Medical,Surgical,& Family Hx - Medical History Cardio: History of: CHF (Ischemic cardiomyopathy with chronic systolic and diastolic heart failure), Hypertension, [place] Neurology: History of: TIA Endocrine: History of: Diabetes Mellitus (IDDM), Dyslipidemia Respiratory: History of: Obstructive Sleep Apnea Renal: History of: Dialysis, Renal Failure Gastrointestinal: History of: GI Problems (occasional constipation) Hematology: History of: Anemia - Surgical History Cardiac Surgeries: Sugical HX of: Cardiac Surgery (CABG X 3 vessel) Thoracic Surgeries: Surgical HX of;: Kidney (Renal Surgery) (cauterized/ embolized to stop bleeding) Patient denies;: Organ Transplant, Lobectomy Neurologic Surgeries: Patient denies: Neurologic Surgery Abdominal Surgeries: Surgical HX of: Abdominal Surgery, Appendectomy, Cholecystectomy, Colonoscopy Reproductive Surgeries: Surgical HX of;: Genitourinary Surgery - Family History Family History: Reports;: Family Diabetes (mother), Family Hypertension Denies;: Family Cancer, Family Stroke - Social History Smoking Status: Never smoker Frequency of Alcohol Use: Occasionally Type of Drug Use: None Results - Labs CBC & BMP: 06/22/16 03:43 06/22/16 03:44 Lab Results: I have reviewed the past 24 hour labs - Diagnostic Findings Procedure: Chest x-ray: image reviewed by me (Minimal left pleural changes. Lungs are otherwise clear. Sternal wires noted. Mild cardiomegaly.) Quality Measures - Stroke Symptom Onset Unknown: No - AMI Contraindication to ACEI/ARB: other (ESRD) Contraindications to ASA on arrival: other (Given at HD prior to arrival)
--- NOTE | 2016-06-22 12:47 | Consultation ---
Assessment and Plan - Time spent with patient Time spent with patient: Less than 30 minutes (1) Right serous otitis media Status: Acute Assessment and plan: Right serous otitis media that appears chronic in nature there are air bubbles present which is consistent with the new administration of positive pressure ventilation which will probably help resolve some of his serous otitis media. I would continue observation and see if this improves. Additionally with his multiple medical comorbidities he may have an underlying sensorineural hearing loss but we would need an audiogram that is only obtained on an outpatient basis and treatment would be either steroid administration systemically or trans -tympanically but these could be done at a later date as we have a several week optimal window and potentially up to 3 months window of treatment. I recommend he get an audiogram on discharge and follow-up with me as an outpatient. I will follow this patient intermittently throughout his stay if there is any additional problems or changes in his condition please notify me. Also I see on his medication list he is currently on Cortisporin otic on evaluation there is no otitis externa and I do not feel this is necessary as his otitis externa appears to be resolved will discontinue this. Thank you very much for this consultation. Current Visit: Yes Qualifiers: Chronicity: chronic Qualified Code(s): H65.21 - Chronic serous otitis media , right ear (2) Decreased hearing Status: Acute Current Visit: Yes History of Present Illness - Data of Consult Patient: new to practice Consult date: 06/22/16 Requesting Physician: Ray Cordova Jr. - Consult Narrative Reason for consult: Hearing loss History of present illness: Mr. Pena is a 65 year old male presenting to the emergency room and subsequently admitted for chest pain with multiple medical comorbidities also noted to have new onset right-sided hearing loss. The hearing loss has been acute over the last several days per patient and appears to be getting worse. This is cause difficulty with communication. Patient does state that his left ear is hearing better than his right ear there is been no dizziness or new onset ringing or tinnitus present. CC: Maude Goldstein MD - Home Medications and Allergies Home Medications: Home Medications Medication Instructions Recorded Confirmed Type Aspirin EC Tab 81 mg PO DAILY #30 tablet 03/25/15 06/20/16 Rx Metoprolol Tartrate Tab [Lopressor 25 mg PO BID #60 tablet 03/25/15 06/20/16 Rx Tab] Nitroglycerin Sl Tab [Nitrostat] 0.4 mg SL Q5M PRN #25 tablet 03/25/15 06/20/16 Rx Pantoprazole Tab [Protonix Tab] 40 mg PO DAILY #30 tablet 03/25/15 06/20/16 Rx Ranolazine [Ranexa] 500 mg PO BID #60 tablet 03/25/15 06/20/16 Rx Atorvastatin [Lipitor] 40 mg PO BEDTIME 05/15/16 06/20/16 History Allergies/Adverse Reactions: Allergies Allergy/AdvReac Type Severity Reaction Status Date / Time No Known Allergies Allergy Verified 05/21/16 06:47 12 point system: reviewed and no additional remarkable complaints except as stated Medical,Surgical,& Family Hx - Medical History Cardio: History of: CHF (Ischemic cardiomyopathy with chronic systolic and diastolic heart failure), Hypertension, [place] Neurology: History of: TIA Endocrine: History of: Diabetes Mellitus (IDDM), Dyslipidemia Respiratory: History of: Obstructive Sleep Apnea Renal: History of: Dialysis, Renal Failure Gastrointestinal: History of: GI Problems (occasional constipation) Hematology: History of: Anemia - Surgical History Cardiac Surgeries: Sugical HX of: Cardiac Surgery (CABG X 3 vessel) Thoracic Surgeries: Surgical HX of;: Kidney (Renal Surgery) (cauterized/ embolized to stop bleeding) Patient denies;: Organ Transplant, Lobectomy Neurologic Surgeries: Patient denies: Neurologic Surgery Abdominal Surgeries: Surgical HX of: Abdominal Surgery, Appendectomy, Cholecystectomy, Colonoscopy Reproductive Surgeries: Surgical HX of;: Genitourinary Surgery - Family History Family History: Reports;: Family Diabetes (mother), Family Hypertension Denies;: Family Cancer, Family Stroke - Social History Smoking Status: Never smoker Frequency of Alcohol Use: Occasionally Type of Drug Use: None Exam - Constitutional Vitals: Period Temp Pulse Resp BP Sys/Weldon Pulse Ox Last 24 Hr 97.0 F-98.1 F 66-76 18-20 96-135/52-67 91-100 General appearance: normal weight, no acute distress - Head Head exam: Present: normal inspection, normocephalic - Eye Eye exam: Present: periorbital swelling (Potentially secondary to positive pressure versus more chronic periorbital swelling ) - ENT ENT exam: Present: normal exam, normal external ear exam, normal oropharynx - Expanded ENT Exam TM exam: bulging: Right TM (Serous otitis media of the right with air bubbles in the middle ear consistent with his recent addition of positive pressure ventilation which may subsequently improve his serous otitis media I recommend continued observation) Mouth exam: Present: moist Teeth exam: Present: other (Poor dental hygiene) - Neck Neck exam: Present: normal inspection - Respiratory Respiratory exam: Present: other (Currently requiring positive pressure ventilation) - GI/Abdominal GI/Abdominal exam: Present: soft (No gross organomegaly) - Extremities Exam Extremities exam: Present: normal inspection, normal capillary refill - Neurological Exam Neurological exam: Present: CN II-XII intact, other (Difficult to understand patient is also somewhat somnolent secondary to this CO2 retention being treated by positive pressure ventilation) - Psychiatric Psychiatric exam: Present: other (See above he appears to be somewhat somnolent so is difficult to obtain his baseline) - Skin Skin exam: Present: normal color, warm Results - Labs CBC & BMP: 06/22/16 03:43 06/22/16 03:44 Lab Results: I have reviewed the past 24 hour labs Quality Measures - Stroke Symptom Onset Unknown: No - AMI Contraindication to ACEI/ARB: other (ESRD) Contraindications to ASA on arrival: other (Given at HD prior to arrival)
--- NOTE | 2016-06-22 12:48 | Hospitalist Progress Note ---
Assessment and Plan - Time spent with patient Time spent with patient: Greater than 30 minutes (1) Obesity hypoventilation syndrome Status: Acute Assessment and plan: Patient stable no need to transfer to the ICU. Will obtain an ABG 1-2 hours after the first one which was off BiPAP. Continue BiPAP as needed as needed. Pulmonary on board. Current Visit: Yes (2) Obstructive sleep apnea Status: Acute Assessment and plan: CPAP at night. Current Visit: Yes (3) Chest pain Status: Acute Assessment and plan: Cardiac cath was planned today however held after an episode of altered mental status and respiratory distress. Defer further care to cardiology and I appreciate their assistance. Current Visit: Yes (4) Decreased hearing of both ears Status: Acute Assessment and plan: Continue steroid drops and consult to ENT. Current Visit: Yes (5) Coronary artery disease Status: Chronic Assessment and plan: See above. Continue home medications. Current Visit: Yes Qualifiers: Coronary Disease-Associated Artery/Lesion type: [place] artery [place] vs. transplanted heart: [place] heart Associated angina: with unstable angina Qualified Code(s): I25.110 - Atherosclerotic heart disease of [place] coronary artery with unstable angina pectoris (6) End stage renal disease Status: Chronic Assessment and plan: Continue dialysis. Current Visit: Yes (7) Diabetes mellitus Status: Chronic Assessment and plan: Continue current management. Current Visit: No Qualifiers: Diabetes mellitus type: type 2 Diabetes mellitus complication detail: with chronic kidney disease Chronic kidney disease stage: on chronic dialysis (8) Hypertension Status: Chronic Assessment and plan: Continue medications. Current Visit: No Qualifiers: Hypertension type: essential hypertension Qualified Code(s): I10 - Essential (primary) hypertension (9) Ischemic cardiomyopathy Status: Chronic Assessment and plan: Stable. Continue medications. Current Visit: No Hospitalist: Subjective Interval history: This morning the patient received Valium Benadryl for planned cath however sometime after developed altered mental status with apneic episodes. Nursing staff called me and made me aware and called MANAGEMENT LIAISON. Patient was somnolent, lethargic difficult to arouse and confused. He is placed on BiPAP with adequate saturations. Patient's ABG was taken with a pH 7.24 chest x-ray revealed pulmonary edema. Exam - Constitutional Vitals: Period Temp Pulse Resp BP Sys/Weldon Pulse Ox Last 24 Hr 97.0 F-98.1 F 66-76 18-20 96-135/52-67 91-100 General appearance: mild distress, over weight - Head Head exam: Present: normal inspection, normocephalic, atraumatic - Eye Eye exam: Present: EOMI Pupils: Present: DINESH - ENT ENT exam: Present: normal exam - Neck Neck exam: Present: normal inspection - Respiratory Respiratory exam: Present: other (Coarse breath sounds bilaterally). Absent: rhonchi, wheezes - Cardiovascular Cardiovascular exam: Present: regular rate and rhythm. Absent: gallop, rubs, systolic murmur - GI/Abdominal GI/Abdominal exam: Present: normal bowel sounds, soft. Absent: distended, firm , guarding, tenderness, rebound - Extremities Exam Extremities exam: Present: normal inspection. Absent: calf tenderness, edema Results - Labs CBC & BMP: 06/22/16 03:43 06/22/16 03:44 Lab Results: I have reviewed the past 24 hour labs Quality Measures - Stroke Symptom Onset Unknown: No - AMI Contraindication to ACEI/ARB: other (ESRD) Contraindications to ASA on arrival: other (Given at HD prior to arrival)
--- NOTE | 2016-06-22 13:18 | Nephrology Progress Note ---
Nephrology - PN: Subj Interval history: The patient required BiPAP ventilation this morning for low sats and lethargy. Patient has a history of sleep apnea and has not been using his machine in several years. He is more awake since he has been using the ventilation however does require soft restraints due to agitation. Did have evaluation by Dr. Jones this morning regarding his decreased hearing. Following those recommendations at this time. He has been hemodynamically stable no other acute changes. Exam (PN)-Nephrology - Vital Signs Vital signs: Period Temp Pulse Resp BP Sys/Weldon Pulse Ox Last 24 Hr 97.0 F-98.1 F 66-76 18-20 96-135/52-67 91-100 - General Appearance General appearance: well-developed, well-nourished EENT: ATNC Neck: supple Respiratory: clear Cardiology: regular rate, regular rhythm Gastrointestinal: normoactive bowel sounds, no tenderness Neurologic: alert and oriented x3 Musculoskeletal: no clubbing - Lab 06/22/16 03:43 06/22/16 03:44 Most recent lab results ABG pH 7.241 (7.35-7.45) L 06/22/16 10:43 ABG pCO2 64.7 MM HG (35-48) H 06/22/16 10:43 ABG pO2 61.2 MM HG (80-95) L 06/22/16 10:43 ABG HCO3 27.2 MMOL/L (20-26) H 06/22/16 10:43 ABG O2 Saturation 86.6 % (95-100) L 06/22/16 10:43 Calcium 7.9 MG/DL (8.5-10.1) L 06/22/16 03:44 Assessment and Plan (1) Chest pain Status: Acute Assessment and plan: The patient has a history of cardiac disease. Appreciate input from cardiology. Current Visit: No (2) End stage renal disease Status: Chronic Assessment and plan: Continue with scheduled hemodialysis. Current Visit: No (3) Hypertension Status: Chronic Current Visit: No Qualifiers: Qualified Code(s): I10 - Essential (primary) hypertension (4) Diabetes mellitus Status: Chronic Current Visit: No (5) Secondary hyperparathyroidism Status: Chronic Current Visit: No (6) Dyslipidemia Status: Chronic Current Visit: No (7) Ischemic cardiomyopathy Status: Chronic Current Visit: No (8) Hx of CABG Status: Chronic Current Visit: No (9) Decreased hearing Status: Acute Current Visit: Yes (10) Decreased hearing of both ears Status: Acute Assessment and plan: Has been evaluated by ENT Current Visit: Yes
[2016-06-22 14:17] LABS: ABG Base Excess -1.7 MMOL/L (-2.5-2.5); ABG Oxygen Saturation 99.3 % (95-100); ABG PCO2 62.5 MM HG (35-48); ABG PH 7.238 (7.35-7.45)
--- NOTE | 2016-06-22 14:48 | Cardiology Progress Note ---
Floyd Malave Vanessa, RN, am scribing for, and in the presence of, Quique Contreras MD 14:48. Assessment and Plan - Time spent with patient Time spent with patient: Greater than 30 minutes (1) Unstable angina Status: Acute Assessment and plan: Clinically stable at this time. Plan for cardiac catheterization once recovered from acute AMS. We will plan for minimal sedation. Current Visit: Yes (2) Coronary artery disease Status: Chronic Current Visit: Yes Qualifiers: Coronary Disease-Associated Artery/Lesion type: [place] artery [place] vs. transplanted heart: [place] heart Associated angina: with unstable angina Qualified Code(s): I25.110 - Atherosclerotic heart disease of [place] coronary artery with unstable angina pectoris (3) Obesity hypoventilation syndrome Status: Acute Current Visit: Yes (4) Obstructive sleep apnea Status: Acute Assessment and plan: Per reports, he is noncompliant with CPAP. He is currently using BiPAP without difficulty. Pulmonology, Dr. Hartmann, is following. Current Visit: Yes (5) Anemia, chronic disease Status: Chronic Current Visit: Yes (6) End stage renal disease Status: Chronic Assessment and plan: Hemodialysis routinely. Managed per nephrology. Current Visit: Yes (7) Dyslipidemia Status: Chronic Current Visit: No (8) Hx of CABG Status: Chronic Current Visit: No (9) Hypertension Status: Chronic Assessment and plan: Continue current medication regimen. Current Visit: No Qualifiers: Hypertension type: essential hypertension Qualified Code(s): I10 - Essential (primary) hypertension (10) Ischemic cardiomyopathy Status: Chronic Current Visit: No Cardiology - PN: Subj Interval history: Mr. Pena is a 65 year old male admitted on 06/20/16 with unstable angina. He has a past medical history including CAD with previous CABG, obstructive sleep apnea, HTN, ischemic cardiomyopathy with most recent EF ESRD with dialysis, IDDM , hyperlipidemia. His most recent left heart catheterization was March 24, 2015, by Dr. Boby Bautista with the following findings: 1. Increased LVEDP 24 mmHg. 2. Apical hypokinesis with EF of 50-55%. 3. LAD-calcified all the way to the apex with total occlusion after the second septal gas welder. 4. Diagonal branch -severe occlusive disease. 5. Circumflex-calcified, 100% proximal occlusion. 6. Dominant RCA-densely calcified with 100% mid occlusion. 7. SVG to PDA-widely patent. 8. SVG to OM-widely patent. 9. AGUSTIN graft to LAD-widely patent. Diffuse disease beyond the graft insertion site. At time of cath in 2014, diffuse disease of [place] LAD beyond AGUSTIN graft anastomosis site was not amenable to percutaneous coronary intervention. Medical management recommended. Since admission, patient's Ranexa dosage has been increased to 1,000 mg by mouth twice daily. Unfortunately he has struggled with some hypotension, and this has made it difficult to increase other medications. 12 lead EKG with no acute ST segment changes. Troponin level slightly elevated on 06/20 at 1.1, and with associated chest discomfort, it was elected he undergo repeat cardiac catheterization to reevaluate coronary anatomy with possible revascularization. Cardiac cath was scheduled for this morning, but earlier after receiving PO Valium and Benadryl, he became lethargic with altered mental status. REGISTERED NURSE HH CASE MANAGER was called, ABGs were drawn and PCO2 of 64 with PO2 61, pH 7.24. Catheterization canceled, and patient was placed on BiPAP to increase oxygenation for probable obesity hypoventilation syndrome. Upon examination this afternoon, he appears to be more alert but it still drowsy. He will rouse to answer questions, is appropriate. Denies chest pain or shortness of breath at this time. SaO2 is 100% . BP 121/66. Sinus rhythm with pulse rate 60s, rare PVC. Next hemodialysis scheduled for tomorrow. Patient had acute mental status changes with Benadryl and Valium in preparation for cardiac catheterization. He had very low oxygen saturations requiring eventual BiPAP for improvement in his oxygenation and mental status. He currently is talkative and for the most part appropriate although he is difficult to understand with the BiPAP. We will continue as currently and will proceed with cardiac catheterization in the next day or so. I have discussed in detail the particulars of this case and I have examined the patient and reviewed the patient's chart both current and old. I was directly involved in the patient's evaluation and management and I completely agree with Zahraa Barrientos RN regarding this patient's evaluation and treatment plan. Exam (Progress Note) - Constitutional Vitals: Period Temp Pulse Resp BP Sys/Weldon Pulse Ox Last 24 Hr 97.0 F-98.1 F 66-76 18-20 96-135/52-67 91-100 Exam: General appearance: over weight, no acute distress - Head Head exam: Absent: abrasion, laceration, hematoma - ENT ENT exam: Present: other (Poor dentition). Normal external ear exam - Neck Neck exam: Present: normal inspection. Absent: tenderness - Respiratory Respiratory exam: Present: scattered rhonchi throughout. Absent: stridor, wheeze , accessory muscle use - Cardiovascular Cardiovascular exam: Present: regular rate and rhythm. Absent: bradycardia, tachycardia, irregular rhythm, murmur. Other (unable to assess for JVD due to habitus) - GI/Abdominal GI/Abdominal exam: Present: normal bowel sounds, soft, nontender. Absent: firm, distended, masses. Other (obese) - Extremities Exam Extremities exam: Present: warm, dry. Absent: bruising, calf tenderness - Neurological Exam Neurological exam: Present: drowsy but rousable, able to follow commands but lethargic. (Extremely hard of hearing) - Psychiatric Psychiatric exam: Present: slightly obtunded, calm. Slight confusion at times ( BUE soft limb wrist restraints in place to keep BiPAP mask in place) - Skin Skin exam: Present: normal color, warm. Absent: diaphoresis, cyanosis Result/EKG - Labs CBC & BMP: 06/22/16 03:43 06/22/16 03:44 Lab Results: I have reviewed the past 24 hour labs Labs: Laboratory Results - last 24 hr 06/21/16 06/21/16 06/22/16 16:06 23:11 03:43 WBC 8.4 RBC 3.18 L Hgb 9.1 L Hct 31.2 L MCV 98.1 MCH 29 MCHC 29.2 L RDW 17.6 H Plt Count 201 MPV 11.5 Neut % (Auto) 58.2 Lymph % (Auto) 22.9 [place] % (Auto) 15.2 H Eos % (Auto) 2.5 Baso % (Auto) 0.8 Neut # (Auto) 4.9 Lymph # (Auto) 1.9 [place] # (Auto) 1.3 H Eos # (Auto) 0.2 Baso # (Auto) 0.1 Immature Gran % 0.4 Nucleated RBC % 0.0 Immature Gran # 0.03 Nucleated RBCs # 0.00 ABG pH ABG pCO2 ABG pO2 ABG HCO3 ABG Total CO2 ABG O2 Saturation ABG Base Excess FiO2 Sodium Potassium Chloride Carbon Dioxide Anion Gap BUN Creatinine GFR Calculation BUN/Creatinine Ratio Glucose POC Glucose 122 H 121 H Calculated Osmolality Calcium 06/22/16 06/22/16 06/22/16 03:44 07:00 10:43 WBC RBC Hgb Hct MCV MCH MCHC RDW Plt Count MPV Neut % (Auto) Lymph % (Auto) [place] % (Auto) Eos % (Auto) Baso % (Auto) Neut # (Auto) Lymph # (Auto) [place] # (Auto) Eos # (Auto) Baso # (Auto) Immature Gran % Nucleated RBC % Immature Gran # Nucleated RBCs # ABG pH 7.241 L ABG pCO2 64.7 H ABG pO2 61.2 L ABG HCO3 27.2 H ABG Total CO2 29.2 H ABG O2 Saturation 86.6 L ABG Base Excess -1.0 FiO2 100.00 Sodium 141 Potassium 4.6 Chloride 103 Carbon Dioxide 23 Anion Gap 19.6 H BUN 46 H D Creatinine 9.50 H GFR Calculation 7 BUN/Creatinine Ratio 4.00 L Glucose 100 POC Glucose 104 Calculated Osmolality 292.3 Calcium 7.9 L 06/22/16 06/22/16 10:46 11:13 WBC RBC Hgb Hct MCV MCH MCHC RDW Plt Count MPV Neut % (Auto) Lymph % (Auto) [place] % (Auto) Eos % (Auto) Baso % (Auto) Neut # (Auto) Lymph # (Auto) [place] # (Auto) Eos # (Auto) Baso # (Auto) Immature Gran % Nucleated RBC % Immature Gran # Nucleated RBCs # ABG pH ABG pCO2 ABG pO2 ABG HCO3 ABG Total CO2 ABG O2 Saturation ABG Base Excess FiO2 Sodium Potassium Chloride Carbon Dioxide Anion Gap BUN Creatinine GFR Calculation BUN/Creatinine Ratio Glucose POC Glucose 112 H 105 Calculated Osmolality Calcium - EKG EKG results: interpreted by me EKG shows: sinus rhythm (pulse rate 70's, occ PVC) Quality Measures - Stroke Symptom Onset Unknown: No - AMI Contraindication to ACEI/ARB: other (ESRD) Contraindications to ASA on arrival: other (Given at HD prior to arrival) Ben Malave Wesley, MD, personally performed the services described in this documentation, ascribed by Zahraa Barrientos RN in my presence, and it is both accurate and complete 448 .
--- NOTE | 2016-06-22 14:50 | Sleep Medicine Consult ---
Assessment and Plan (1) Obstructive sleep apnea Status: Acute Assessment and plan: Patient apparently carries a history of sleep apnea though have no records available from prior diagnostic studies. He will need to be evaluated once medically stabilized. Agree with evaluation and recommendations from pulmonary and will follow up with his status. If he does have sleep apnea, certainly will need to monitor him closely with any sedating medications. Current Visit: Yes (2) Hypertension Status: Chronic Assessment and plan: The prevalence rate for obstructive sleep apnea patients with hypertension is 35 %. That rate can be as high as 80% in patients who require 4 or more medications for blood pressure control. Current Visit: No Qualifiers: Hypertension type: essential hypertension Qualified Code(s): I10 - Essential (primary) hypertension (3) Coronary artery disease Status: Chronic Assessment and plan: The [place] data from Lancet 2005 proved significant reduction in the risk of fatal and nonfatal cardiac events in patients with severe obstructive sleep apnea compliant with CPAP, in comparison with those noncompliant with CPAP for severe sleep apnea. Current Visit: No History of Present Illness Chief complaint: Sleep apnea History of present illness: Mr. Pena is a 65 year old male who apparently has a history of sleep apnea. He has a CPAP machine at home but apparently is noncompliant. We do not have a record of prior sleep evaluation. He was to get a heart cath today and got preop sedation and apparently had hypoventilation that necessitated placement of emergent BiPAP therapy. He has been seen by pulmonary medicine and does seem to be improving. He is very hard of hearing and difficult to obtain a history from. No family members are present. Home Medications Medication Instructions Recorded Confirmed Type Aspirin EC Tab 81 mg PO DAILY #30 tablet 03/25/15 06/20/16 Rx Metoprolol Tartrate Tab [Lopressor 25 mg PO BID #60 tablet 03/25/15 06/20/16 Rx Tab] Nitroglycerin Sl Tab [Nitrostat] 0.4 mg SL Q5M PRN #25 tablet 03/25/15 06/20/16 Rx Pantoprazole Tab [Protonix Tab] 40 mg PO DAILY #30 tablet 03/25/15 06/20/16 Rx Ranolazine [Ranexa] 500 mg PO BID #60 tablet 03/25/15 06/20/16 Rx Atorvastatin [Lipitor] 40 mg PO BEDTIME 05/15/16 06/20/16 History Allergies Allergy/AdvReac Type Severity Reaction Status Date / Time No Known Allergies Allergy Verified 05/21/16 06:47 Review of systems: Unobtainable due to current condition. Exam (Pulmonay) H&P - Constitutional Vitals: Period Temp Pulse Resp BP Sys/Weldon Pulse Ox Last 24 Hr 97.0 F-98.1 F 66-76 18-20 96-135/52-67 91-100 Exam: He is arousable and will respond to verbal stimuli. Neck supple without adenopathy. Chest with fair air movement but slightly decreased breath sounds in the right relative to the left. Cardiac exam reveals a regular rhythm without murmur or gallop. Abdomen soft nontender without palpable hepatosplenomegaly or mass. Extremities without significant edema. Neurologically, patient will arouse and move all extremities and communicate. Medical,Surgical,& Family Hx - Medical History Cardio: History of: CHF (Ischemic cardiomyopathy with chronic systolic and diastolic heart failure), Hypertension, [place] Neurology: History of: TIA Endocrine: History of: Diabetes Mellitus (IDDM), Dyslipidemia Respiratory: History of: Obstructive Sleep Apnea Renal: History of: Dialysis, Renal Failure Gastrointestinal: History of: GI Problems (occasional constipation) Hematology: History of: Anemia - Surgical History Cardiac Surgeries: Sugical HX of: Cardiac Surgery (CABG X 3 vessel) Thoracic Surgeries: Surgical HX of;: Kidney (Renal Surgery) (cauterized/ embolized to stop bleeding) Patient denies;: Organ Transplant, Lobectomy Neurologic Surgeries: Patient denies: Neurologic Surgery Abdominal Surgeries: Surgical HX of: Abdominal Surgery, Appendectomy, Cholecystectomy, Colonoscopy Reproductive Surgeries: Surgical HX of;: Genitourinary Surgery - Family History Family History: Reports;: Family Diabetes (mother), Family Hypertension Denies;: Family Cancer, Family Stroke - Social History Smoking Status: Never smoker Frequency of Alcohol Use: Occasionally Type of Drug Use: None Results - Labs CBC & BMP: 06/22/16 03:43 06/22/16 03:44 Quality Measures - Stroke Symptom Onset Unknown: No - AMI Contraindication to ACEI/ARB: other (ESRD) Contraindications to ASA on arrival: other (Given at HD prior to arrival)
--- NOTE | 2016-06-22 16:19 | Ultrasound Report ---
History is right arm swelling Grayscale, spectral Doppler, and color flow analysis performed and interpreted There is nonocclusive thrombus in right internal jugular vein with partial flow The right subclavian and axillary veins are patent. There may be some very minimal thrombus along the wall of the axillary vein. There is occlusive thrombus in the right cephalic vein with noncompressibility The right brachial vein and basilic veins are patent Flow is demonstrated within the right arm graft Impression: right upper extremity venous thrombus described above including nonocclusive thrombus in the right internal jugular vein PROCEDURE INTERPRETED AT [facility] DEPARTMENT OF RADIOLOGY Final Report Signed by: Dr. Ember Avalos
[2016-06-22] MEDS: ATORVASTATIN 40 MG TABLET PO SCH (21:35)
[2016-06-23 04:52] LABS: Basophils # 0.1 10*3/uL (0.0-0.2); Basophils % 1.2 % (0.0-0.8); Eosinophils # 0.3 10*3/uL (0.0-0.87); Eosinophils % 3.6 % (0.00-10.9); Hematocrit 27.9 VOL% (42.0-52.0); Hemoglobin 8.4 GM/DL (14.0-18.0); Immature Granulocytes % 0.4 %; Immature Granulocytes Absolute 0.03 #; Lymphocytes # 1.6 10*3/uL (1.4-4.0); Lymphocytes % 21.2 % (21.2-54.2); Mean Corpuscular HGB Conc 30.1 GM/DL (32-36); Mean Corpuscular Hemoglobin 29 PG (27-34); Mean Corpuscular Volume 95.9 FL (87-102); Mean Platelet Volume 11.2 FL (9.6-12.0); Monocytes # 1.2 10*3/uL (0.11-0.8); Monocytes % 16.2 % (1.7-12.7); Neutrophils # 4.3 10*3/uL (1.4-7.4); Neutrophils % 57.4 % (38.7-73.9); Platelet Count 229 T/CUMM (130-400); Red Blood Count 2.91 MC/CUMM (3.8-5.5); Red Cell Distribution Width 17.5 % (9.3-17.3); White Blood Count 7.4 T/CUMM (4-12)
[2016-06-23 05:17] LABS: Elliptocytes Few; Eosinophils 3 % (0-10); Hypochromasia 1+; Lymphocytes 16 % (20-55); Platelet Estimate Adequate; Segmented Neutrophils 66 % (50-85); Total Cells Counted 100
[2016-06-23 05:21] LABS: Calcium 7.2 MG/DL (8.5-10.1); Osmolality,Calculated 297.4 MOS/KG (273-304); Potassium 4.7 MMOL/L (3.5-5.1)
--- NOTE | 2016-06-23 07:12 | Pulmonology Progress Note ---
Pulmonary - PN: Subj Interval history: This 65-year-old man and congestive heart failure and has end-stage renal disease. He also has obstructive sleep apnea and I suspect obesity hypoventilation syndrome. He was quite lethargic but is now much more alert. He still continues to take his facemask BiPAP off during the night. He is due for dialysis today. He is not having any fever. Exam (Progress Note) - Constitutional Vitals: Period Temp Pulse Resp BP Sys/Weldon Pulse Ox Last 24 Hr 97.0 F-97.9 F 65-76 16-22 106-139/42-67 93-100 Exam: Vital signs normal. Pupils react to light. Throat is clear. Neck supple no bruits. Chest reveals a few basilar crackles. Heart normal rate rhythm no murmurs. Abdomen soft obese unable to palpate abdominal organs. Extremities no clubbing or cyanosis he has trace of pitting edema in both legs in the right arm. Results - Labs CBC & BMP: 06/23/16 04:29 06/23/16 04:29 - Diagnostic Findings Procedure: Ultrasound: report reviewed by me (Has venous thrombosis right upper extremity) Assessment and Plan (1) Obstructive sleep apnea Status: Acute Assessment and plan: Patient has not been using his CPAP regularly at night. I do not know the details of this diagnosis. 06/23/2016 seems much more alert now than he is using his BiPAP at night. Current Visit: Yes (2) Obesity hypoventilation syndrome Status: Acute Assessment and plan: I suspect he has obesity hypoventilation syndrome that was aggravated by preop for his cardiac catheterization. Agree with using BiPAP and allowing medication to get out of his system. If he still needs a catheterization would either use general anesthesia or minimal sedation. 06/23/2016 PCO2 elevated. Current Visit: Yes (3) Chest pain Status: Acute Current Visit: Yes (4) Decreased hearing Status: Acute Assessment and plan: Etiology of this is not clear 06/23/2016 ENT is evaluating. Current Visit: Yes (5) End stage renal disease Status: Chronic Assessment and plan: He is due for dialysis later today or tomorrow. 06/23/2016 for dialysis today. Current Visit: No (6) Ischemic cardiomyopathy Status: Chronic Assessment and plan: No signs of active congestive heart failure. 06/23/2016 defer to cardiology. Current Visit: No
[2016-06-23] MEDS: ASPIRIN EC 81 MG TABLET PO SCH (10:23)
[2016-06-23] MEDS: RANOLAZINE 500 MG TABLET PO SCH ×2 (10:24→20:56)
[2016-06-23] MEDS: CLOPIDOGREL 75 MG TABLET PO SCH (10:24)
[2016-06-23] MEDS: PANTOPRAZOLE 40 MG TABLET PO SCH (10:24)
[2016-06-23] MEDS: METOPROLOL TARTRATE 25 MG TABLET PO SCH ×2 (10:25→20:56)
--- NOTE | 2016-06-23 11:59 | Hospitalist Progress Note ---
Assessment and Plan - Time spent with patient Time spent with patient: Greater than 30 minutes (1) Obesity hypoventilation syndrome Status: Acute Assessment and plan: Continue BiPAP as needed as needed. Pulmonary on board. Current Visit: Yes (2) Obstructive sleep apnea Status: Chronic Assessment and plan: CPAP at night. Current Visit: Yes (3) Chest pain Status: Acute Assessment and plan: Cardiac cath was planned today however held after an episode of altered mental status and respiratory distress. Defer further care to cardiology and I appreciate their assistance. Current Visit: Yes (4) Decreased hearing of both ears Status: Acute Assessment and plan: Continue steroid drops and consult to ENT. Current Visit: Yes (5) Coronary artery disease Status: Chronic Assessment and plan: See above. Continue home medications. Current Visit: Yes Qualifiers: Coronary Disease-Associated Artery/Lesion type: [place] artery [place] vs. transplanted heart: [place] heart Associated angina: with unstable angina Qualified Code(s): I25.110 - Atherosclerotic heart disease of [place] coronary artery with unstable angina pectoris (6) End stage renal disease Status: Chronic Assessment and plan: Continue dialysis. Current Visit: Yes (7) Diabetes mellitus Status: Chronic Assessment and plan: Continue current management. Current Visit: No Qualifiers: Diabetes mellitus type: type 2 Diabetes mellitus complication detail: with chronic kidney disease Chronic kidney disease stage: on chronic dialysis (8) Hypertension Status: Chronic Assessment and plan: Continue medications. Current Visit: Yes Qualifiers: Hypertension type: essential hypertension Qualified Code(s): I10 - Essential (primary) hypertension (9) Ischemic cardiomyopathy Status: Chronic Assessment and plan: Stable. Continue medications. Current Visit: No (10) DVT (deep venous thrombosis) Status: Acute Assessment and plan: Start Lovenox weight-based Current Visit: Yes Hospitalist: Subjective Interval history: Right upper quadrant ultrasound showed a right upper extremity DVT and internal jugular vein nonocclusive thrombus. Patient appears to be doing much better this morning he is far more alert. Exam - Constitutional Vitals: Period Temp Pulse Resp BP Sys/Weldon Pulse Ox Last 24 Hr 97.3 F-97.9 F 63-72 16-20 106-139/42-65 94-100 General appearance: no acute distress - Head Head exam: Present: normocephalic, atraumatic - Eye Eye exam: Present: EOMI Pupils: Present: DINESH - ENT ENT exam: Present: normal exam - Expanded ENT Exam Mouth exam: Present: moist Teeth exam: Present: other (Poor dental hygiene) - Neck Neck exam: Present: normal inspection - Respiratory Respiratory exam: Present: rhonchi. Absent: wheezes - Cardiovascular Cardiovascular exam: Present: regular rate and rhythm. Absent: gallop, rubs, systolic murmur - GI/Abdominal GI/Abdominal exam: Present: normal bowel sounds, soft. Absent: distended, firm , guarding, tenderness, rebound - Extremities Exam Extremities exam: Present: normal inspection. Absent: calf tenderness, edema Results - Labs CBC & BMP: 06/23/16 04:29 06/23/16 04:29 Lab Results: I have reviewed the past 24 hour labs Quality Measures - Stroke Symptom Onset Unknown: No - AMI Contraindication to ACEI/ARB: other (ESRD) Contraindications to ASA on arrival: other (Given at HD prior to arrival)
[2016-06-23] MEDS: ENOXAPARIN 100 MG/ML SYRINGE SUBCUT SCH (12:10)
[2016-06-23] MEDS ORDERED: POTASSIUM CHLORIDE RIDER 10 MEQ in PREMIX 1 EACH IV PRN (13:01)
[2016-06-23] MEDS ORDERED: diphenhydrAMINE CAP 25 MG CAPSULE PO ONE (13:01)
[2016-06-23] MEDS ORDERED: MAGNESIUM SULF RIDER 2 GM in PREMIX 1 EACH IV PRN (13:01)
--- NOTE | 2016-06-23 13:16 | Cardiology Progress Note ---
I, Susan Bhatt RN, am scribing for, and in the presence of, Quique Contreras MD 13:16. Assessment and Plan (1) Unstable angina Status: Acute Current Visit: Yes (2) Obesity hypoventilation syndrome Status: Acute Current Visit: Yes (3) Obstructive sleep apnea Status: Chronic Current Visit: Yes (4) Anemia, chronic disease Status: Chronic Current Visit: Yes (5) Coronary artery disease Status: Chronic Current Visit: Yes Qualifiers: Coronary Disease-Associated Artery/Lesion type: [place] artery [place] vs. transplanted heart: [place] heart Associated angina: with unstable angina Qualified Code(s): I25.110 - Atherosclerotic heart disease of [place] coronary artery with unstable angina pectoris (6) End stage renal disease Status: Chronic Current Visit: Yes (7) Dyslipidemia Status: Chronic Current Visit: Yes (8) Hx of CABG Status: Chronic Current Visit: No (9) Hypertension Status: Chronic Current Visit: Yes Qualifiers: Hypertension type: essential hypertension Qualified Code(s): I10 - Essential (primary) hypertension Cardiology - PN: Subj Interval history: Patient is seen sitting up in chair in no acute distress. He is not wearing oxygen when I enter the room, he tells me he had all while he was getting a bath. He states he is breathing without difficulty. He does put the nasal biprong oxygen back on. His O2 sat was 90% earlier this morning. He denies having any chest pain presently or during the night. bus monitor currently sinus rhythm with heart rates in the 60s. He is scheduled for dialysis today. Patient is currently dialyzing and is tolerating it reasonably well. He is much more awake and alert and talkative this morning. He is not requiring BiPAP. We are going to attempt catheterization tomorrow. His prognosis is poor and he has diffuse severe coronary disease but he does have all 3 grafts open and we will reevaluate that. We will hold his sedation until we can see him in the [facility]. He will not get Valium will give him a low dose of Benadryl 25. I have discussed in detail the particulars of this case and I have examined the patient and reviewed the patient's chart both current and old. I was directly involved in the patient's evaluation and management and I completely agree with Susan Bhatt RN regarding this patient's evaluation and treatment plan. Exam (Progress Note) - Constitutional Vitals: Period Temp Pulse Resp BP Sys/Weldon Pulse Ox Last 24 Hr 97.0 F-97.9 F 65-72 16-22 106-139/42-66 94-100 General appearance: no acute distress, over weight - Head Head exam: Absent: abrasion, hematoma - Neck Neck exam: Absent: tenderness - Respiratory Respiratory exam: Present: rhonchi, other (Via nasal biprong). Absent: accessory muscle use, chest wall tenderness - Cardiovascular Cardiovascular exam: Present: regular rate and rhythm - GI/Abdominal GI/Abdominal exam: Present: normal bowel sounds, soft. Absent: distended, tenderness - Extremities Exam Extremities exam: Absent: edema - Neurological Exam Neurological exam: Present: alert - Psychiatric Psychiatric exam: Present: normal affect, normal mood - Skin Skin exam: Present: warm, dry Result/EKG - Labs CBC & BMP: 06/23/16 04:29 06/23/16 04:29 Lab Results: I have reviewed the past 24 hour labs Labs: Laboratory Results - last 24 hr 06/22/16 06/22/16 06/22/16 10:43 10:46 11:13 WBC RBC Hgb Hct MCV MCH MCHC RDW Plt Count MPV Neut % (Auto) Lymph % (Auto) [place] % (Auto) Eos % (Auto) Baso % (Auto) Neut # (Auto) Lymph # (Auto) [place] # (Auto) Eos # (Auto) Baso # (Auto) Total Counted Immature Gran % Nucleated RBC % Immature Gran # Segmented Neutrophils Lymphocytes Monocytes Eosinophils Nucleated RBCs # Platelet Estimate Hypochromasia Elliptocytes Morphology Comment ABG pH 7.241 L ABG pCO2 64.7 H ABG pO2 61.2 L ABG HCO3 27.2 H ABG Total CO2 29.2 H ABG O2 Saturation 86.6 L ABG Base Excess -1.0 FiO2 100.00 Sodium Potassium Chloride Carbon Dioxide Anion Gap BUN Creatinine GFR Calculation BUN/Creatinine Ratio Glucose POC Glucose 112 H 105 Calculated Osmolality Calcium 06/22/16 06/22/16 06/22/16 14:05 17:06 20:12 WBC RBC Hgb Hct MCV MCH MCHC RDW Plt Count MPV Neut % (Auto) Lymph % (Auto) [place] % (Auto) Eos % (Auto) Baso % (Auto) Neut # (Auto) Lymph # (Auto) [place] # (Auto) Eos # (Auto) Baso # (Auto) Total Counted Immature Gran % Nucleated RBC % Immature Gran # Segmented Neutrophils Lymphocytes Monocytes Eosinophils Nucleated RBCs # Platelet Estimate Hypochromasia Elliptocytes Morphology Comment ABG pH 7.238 L ABG pCO2 62.5 H ABG pO2 151.0 H ABG HCO3 23.0 ABG Total CO2 25.0 ABG O2 Saturation 99.3 ABG Base Excess -1.7 FiO2 Sodium Potassium Chloride Carbon Dioxide Anion Gap BUN Creatinine GFR Calculation BUN/Creatinine Ratio Glucose POC Glucose 129 H 123 H Calculated Osmolality Calcium 06/23/16 06/23/16 06/23/16 04:29 04:29 07:12 WBC 7.4 RBC 2.91 L Hgb 8.4 L Hct 27.9 L MCV 95.9 MCH 29 MCHC 30.1 L RDW 17.5 H Plt Count 229 MPV 11.2 Neut % (Auto) 57.4 Lymph % (Auto) 21.2 Henderson % (Auto) 16.2 H Eos % (Auto) 3.6 Baso % (Auto) 1.2 H Neut # (Auto) 4.3 Lymph # (Auto) 1.6 Henderson # (Auto) 1.2 H Eos # (Auto) 0.3 Baso # (Auto) 0.1 Total Counted 100 Immature Gran % 0.4 Nucleated RBC % 0.0 Immature Gran # 0.03 Segmented Neutrophils 66 Lymphocytes 16 L Monocytes 15 Eosinophils 3 Nucleated RBCs # 0.00 Platelet Estimate Adequate Hypochromasia 1+ Elliptocytes Few Morphology Comment ABG pH ABG pCO2 ABG pO2 ABG HCO3 ABG Total CO2 ABG O2 Saturation ABG Base Excess FiO2 Sodium 140 Potassium 4.7 Chloride 99 Carbon Dioxide 25 Anion Gap 20.7 H BUN 62 H Creatinine 11.30 H GFR Calculation 6 BUN/Creatinine Ratio 5.00 L Glucose 114 H POC Glucose 120 H Calculated Osmolality 297.4 Calcium 7.2 L - EKG EKG results: interpreted by me EKG shows: sinus rhythm Quality Measures - Stroke Symptom Onset Unknown: No - AMI Contraindication to ACEI/ARB: other (ESRD) Contraindications to ASA on arrival: other (Given at HD prior to arrival) Ben Malave Wesley, MD, personally performed the services described in this documentation, ascribed by Susan Bhatt RN in my presence, and it is both accurate and complete 316 .
--- NOTE | 2016-06-23 13:58 | Dialysis Note ---
Dialysis Note - Dialysis Note S: Pt seen on dialysis. Denies SOB/pain. O: VSS & AF A: ESRD on CHD, tolerating well without complications. P: Continue routine CHD TIW as prescribed.
--- NOTE | 2016-06-23 16:09 | Sleep Medicine Progress Note ---
Assessment and Plan (1) Obstructive sleep apnea Status: Chronic Assessment and plan: We will look at doing HST on him while on supplemental oxygen at night to see if we can confirm diagnosis of sleep apnea and then utilized CPAP therapy accordingly and schedule follow-up in the sleep clinic. He did use the BiPAP while he was very sedated and lethargic yesterday but as the medication wore off , it was harder to keep it on him and he kept pulling it off. Current Visit: Yes (2) Hypertension Status: Chronic Current Visit: Yes Qualifiers: Hypertension type: essential hypertension Qualified Code(s): I10 - Essential (primary) hypertension (3) Coronary artery disease Status: Chronic Current Visit: No Sleep Medicine Subjective Interval history: Patient is doing much better today. He was pulling off BiPAP last evening. He is alert now and on supplemental O2. He is breathing comfortably and seems to be in his regular baseline state of health. He states that he had a sleep study several years ago at [facility] and we will attempt to obtain those results. We could potentially repeat sleep evaluation on him while here with HST. We certainly need to get him back in the sleep lab and follow-up with him and reassess his treatment recommendations. Exam (Progress Note) - Constitutional Vitals: Period Temp Pulse Resp BP Sys/Weldon Pulse Ox Last 24 Hr 97.3 F-97.7 F 63-72 16-20 106-122/42-65 94-100 Exam: He is alert and responsive in no acute distress. Chest with good air movement no focal wheeze rhonchi or rales. Cardiac exam reveals a regular rhythm without murmur or gallop. Abdomen soft nontender extremities without increased edema. Results - Labs CBC & BMP: 06/23/16 04:29 06/23/16 04:29 Lab Results: I have reviewed the past 24 hour labs
[2016-06-23] MEDS: ATORVASTATIN 40 MG TABLET PO SCH (20:56)
[2016-06-24 05:56] LABS: Basophils # 0.1 10*3/uL (0.0-0.2); Eosinophils # 0.2 10*3/uL (0.0-0.87); Hematocrit 25.8 VOL% (42.0-52.0); Immature Granulocytes % 0.5 %; Immature Granulocytes Absolute 0.03 #; Lymphocytes # 1.1 10*3/uL (1.4-4.0); Lymphocytes % 18.1 % (21.2-54.2); Mean Corpuscular Hemoglobin 29 PG (27-34); Mean Corpuscular Volume 93.1 FL (87-102); Mean Platelet Volume 11.6 FL (9.6-12.0); Monocytes % 16.4 % (1.7-12.7); Neutrophils # 3.5 10*3/uL (1.4-7.4); Platelet Count 209 T/CUMM (130-400); Red Blood Count 2.77 MC/CUMM (3.8-5.5); Red Cell Distribution Width 17.3 % (9.3-17.3); White Blood Count 5.8 T/CUMM (4-12)
[2016-06-24 06:28] LABS: Burr Cells Slight; Elliptocytes Few; Eosinophils 4 % (0-10); Hypochromasia 1+; Lymphocytes 19 % (20-55); Platelet Estimate Normal; Segmented Neutrophils 61 % (50-85); Total Cells Counted 100
[2016-06-24 06:44] LABS: Calcium 7.6 MG/DL (8.5-10.1); Osmolality,Calculated 283.8 MOS/KG (273-304); Potassium 4.8 MMOL/L (3.5-5.1)
--- NOTE | 2016-06-24 07:43 | Pulmonology Progress Note ---
Pulmonary - PN: Subj Interval history: This 65-year-old man and congestive heart failure and has end-stage renal disease. He also has obstructive sleep apnea and I suspect obesity hypoventilation syndrome. He was quite lethargic but is now much more alert. He still continues to take his facemask BiPAP off during the night. He is due for dialysis today. He is not having any fever. 06/24/2016 patient is more alert. He seems to be resistant to using his BiPAP at night. Being evaluated by sleep services. Exam (Progress Note) - Constitutional Vitals: Period Temp Pulse Resp BP Sys/Weldon Pulse Ox Last 24 Hr 96.8 F-98.1 F 63-69 16-21 93-136/50-68 92-100 Exam: Patient is alert and responsive. Vital signs normal. Pupils react to light. Throat is clear. Neck supple no bruits. Chest reveals a few basilar crackles. Heart normal rate rhythm no murmurs. Abdomen soft obese unable to palpate abdominal organs. Extremities no clubbing or cyanosis he has trace of pitting edema in both legs in the right arm. Results - Labs CBC & BMP: 06/24/16 05:18 06/24/16 05:18 Lab Results: I have reviewed the past 24 hour labs Assessment and Plan (1) Obstructive sleep apnea Status: Chronic Assessment and plan: Patient has not been using his CPAP regularly at night. I do not know the details of this diagnosis. 06/23/2016 seems much more alert now than he is using his BiPAP at night. 06/24/2016 important that he get set up to use CPAP or BiPAP at home post discharge. This is being addressed. Current Visit: Yes (2) Obesity hypoventilation syndrome Status: Acute Assessment and plan: I suspect he has obesity hypoventilation syndrome that was aggravated by preop for his cardiac catheterization. Agree with using BiPAP and allowing medication to get out of his system. If he still needs a catheterization would either use general anesthesia or minimal sedation. 06/23/2016 PCO2 elevated. 06/24/2016 has elevated PCO2 while awake. In his situation this is due to obesity hypoventilation syndrome. Current Visit: Yes (3) Chest pain Status: Acute Assessment and plan: Denies chest pain at present. Current Visit: Yes (4) Decreased hearing Status: Acute Assessment and plan: Etiology of this is not clear 06/23/2016 ENT is evaluating. 06/24/2016 seems to hear me very well this morning. Current Visit: Yes (5) End stage renal disease Status: Chronic Assessment and plan: He is due for dialysis later today or tomorrow. 06/23/2016 for dialysis today. 06/24/2016 had dialysis yesterday. Current Visit: No (6) Ischemic cardiomyopathy Status: Chronic Assessment and plan: No signs of active congestive heart failure. 06/23/2016 defer to cardiology. Current Visit: No
[2016-06-24] MEDS: ASPIRIN EC 81 MG TABLET PO SCH (09:37)
[2016-06-24] MEDS: CLOPIDOGREL 75 MG TABLET PO SCH (09:37)
[2016-06-24] MEDS: METOPROLOL TARTRATE 25 MG TABLET PO SCH ×2 (09:37→20:52)
[2016-06-24] MEDS: PANTOPRAZOLE 40 MG TABLET PO SCH (09:37)
[2016-06-24] MEDS: ENOXAPARIN 100 MG/ML SYRINGE SUBCUT SCH (11:08)
--- NOTE | 2016-06-24 13:29 | Hospitalist Progress Note ---
Assessment and Plan (1) Diabetes mellitus Status: Chronic Assessment and plan: Sugar is controlled at present continue to monitor Current Visit: Yes (2) DVT (deep venous thrombosis) Status: Acute Assessment and plan: Right upper extremity DVT on Lovenox daily Current Visit: Yes (3) Right serous otitis media Status: Acute Assessment and plan: Hearing is improved Current Visit: Yes Qualifiers: Chronicity: chronic Qualified Code(s): H65.21 - Chronic serous otitis media , right ear (4) Unstable angina Status: Acute Assessment and plan: No chest pain now , keep follow with the cardiology Current Visit: Yes (5) Anemia, chronic disease Status: Chronic Assessment and plan: Noted hemoglobin and hematocrit progressively don will continue to monitor. Therefore the transfusion to renal with dialysis if needed. Due to him on anticoagulation and a drop of hemoglobin this admission I'll check stool Hemoccult. Chin is on Protonix for GI prophylaxis Current Visit: Yes (6) End stage renal disease Status: Chronic Current Visit: Yes Hospitalist: Subjective Interval history: Mr. Pena is a 65-year-old male with history of CVA or coronary artery disease , and ischemic cardiomyopathy. Patient had last cardiac cath in February 2015 and a reported to have a CVA or small vessel disease and the PCI was not option and was planned to treat medically to treat medically. His echo showed diastolic dysfunction with LV 50% EF along with septal and apical hypokinesis. Patient was admitted with a chest pain on dialysis. Cardiac cath was planned but the patient had AMS and hypoxic with dsaturation on pulse oximetry so it was posterior on Wednesday. Obstructive sleep apnea was suspected and being followed by pulmonary. Prior to that he had the he was reported to have low vitamin onset of hearing loss and was seen by the ENT and right serous otitis media was diagnosed with his hearing been improving now. He has no acute subjective symptoms today Exam - Constitutional Vitals: Period Temp Pulse Resp BP Sys/Weldon Pulse Ox Last 24 Hr 95 F-98.1 F 64-69 16-21 93-136/50-69 92-99 General appearance: no acute distress - Expanded ENT Exam Mouth exam: Present: moist Teeth exam: Present: other (Poor dental hygiene) - Respiratory Respiratory exam: Present: clear to auscultation bilaterally. Absent: rales, rhonchi - Cardiovascular Cardiovascular exam: Present: regular rate and rhythm. Absent: tachycardia - GI/Abdominal GI/Abdominal exam: Present: normal bowel sounds, soft. Absent: tenderness - Extremities Exam Extremities exam: Present: edema (right upper extremity edema he has AV access in the same arm no lower extremities edema ) - Neurological Exam Neurological exam: Present: alert, oriented X3 Results - Labs CBC & BMP: 06/24/16 05:18 06/24/16 05:18 Lab Results: I have reviewed the past 24 hour labs Quality Measures - Stroke Symptom Onset Unknown: No - AMI Contraindication to ACEI/ARB: other (ESRD) Contraindications to ASA on arrival: other (Given at HD prior to arrival)
[2016-06-24] MEDS: RANOLAZINE 500 MG TABLET PO SCH (15:44)
--- NOTE | 2016-06-24 16:49 | Sleep Medicine Progress Note ---
Assessment and Plan (1) Obstructive sleep apnea Status: Chronic Assessment and plan: By HST evaluation, this patient appears to be having more of a central sleep apnea component. These patients usually do better with BiPAP therapy and he may end up requiring an ST device. This can be helpful for patients with a component of obesity hypoventilation syndrome as well. Need for this can be based on formal titration results with refractoriness to standard BiPAP therapy. He will need outpatient sleep study after discharge. Current Visit: Yes (2) Hypertension Status: Chronic Current Visit: Yes Qualifiers: Hypertension type: essential hypertension Qualified Code(s): I10 - Essential (primary) hypertension (3) Coronary artery disease Status: Chronic Current Visit: No Sleep Medicine Subjective Interval history: This patient did undergo HST evaluation last night and did have severe sleep apnea though it did appear to be predominantly central in nature. Based on these findings, I am going to go ahead and initiate auto titration BiPAP to see if we can gain better control over his sleep related breathing problems. This can be utilized with his heart cath tomorrow as well. This is a significant change from what he had previously and I do think he will be better served by outpatient diagnostic and titration sleep study to be absolutely certain of what we are dealing with with him. Central sleep apnea is usually much more difficult to control. He did appear to have some aspect of [place] respirations associated with this. Exam (Progress Note) - Constitutional Vitals: Period Temp Pulse Resp BP Sys/[place] Pulse Ox Last 24 Hr 95 F-98.3 F 62-69 16-21 93-136/50-69 92-100 Exam: He is alert and responsive in no acute distress. Chest with fair air movement no focal wheeze or rhonchi. Cardiac exam reveals a regular rhythm without murmur or gallop. Abdomen soft nontender without palpable hepatosplenomegaly or mass. Extremities are without clubbing, cyanosis, or edema. Results - Labs CBC & BMP: 06/24/16 05:18 06/24/16 05:18 Lab Results: I have reviewed the past 24 hour labs
[2016-06-24] MEDS: ATORVASTATIN 40 MG TABLET PO SCH (20:52)
--- NOTE | 2016-06-24 23:54 | Nephrology Progress Note ---
Nephrology - PN: Subj Interval history: The patient is resting comfortably. He mentions feeling okay. Exam (PN)-Nephrology - Vital Signs Vital signs: Period Temp Pulse Resp BP Sys/Weldon Pulse Ox Last 24 Hr 95 F-98.4 F 62-69 16-21 111-140/55-69 92-100 - General Appearance General appearance: well-developed, well-nourished EENT: ATNC Neck: supple Respiratory: clear Cardiology: no edema, regular rate, regular rhythm Gastrointestinal: normoactive bowel sounds Neurologic: alert and oriented x3 - Lab 06/24/16 05:18 06/24/16 05:18 Most recent lab results ABG pH 7.238 (7.35-7.45) L 06/22/16 14:05 ABG pCO2 62.5 MM HG (35-48) H 06/22/16 14:05 ABG pO2 151.0 MM HG (80-95) H 06/22/16 14:05 ABG HCO3 23.0 MMOL/L (20-26) 06/22/16 14:05 ABG O2 Saturation 99.3 % (95-100) 06/22/16 14:05 Calcium 7.6 MG/DL (8.5-10.1) L 06/24/16 05:18 Assessment and Plan (1) Chest pain Status: Acute Assessment and plan: The patient has a history of cardiac disease. Appreciate input from cardiology. Current Visit: No (2) End stage renal disease Status: Chronic Assessment and plan: Continue with scheduled hemodialysis. Current Visit: No (3) Hypertension Status: Chronic Current Visit: Yes Qualifiers: Hypertension type: essential hypertension Qualified Code(s): I10 - Essential (primary) hypertension (4) Diabetes mellitus Status: Chronic Current Visit: No Qualifiers: Diabetes mellitus type: type 2 Diabetes mellitus complication detail: with chronic kidney disease Chronic kidney disease stage: on chronic dialysis (5) Secondary hyperparathyroidism Status: Chronic Current Visit: No (6) Dyslipidemia Status: Chronic Current Visit: Yes (7) Ischemic cardiomyopathy Status: Chronic Current Visit: No (8) Hx of CABG Status: Chronic Current Visit: No (9) Decreased hearing Status: Acute Current Visit: Yes (10) Decreased hearing of both ears Status: Acute Assessment and plan: Has been evaluated by ENT Current Visit: Yes
[2016-06-25] MEDS: ZIPRASIDONE 20 MG/1 ML VIAL IM PRN ×2 (01:23→23:12)
--- NOTE | 2016-06-25 06:29 | Nephrology Progress Note ---
Nephrology - PN: Subj Interval history: Patient is sitting up in bed resting comfortably no acute changes. No shortness of breath. Access arm is significantly swollen had Dopplers that showed nonocclusive thrombus in the right IJ. No acute changes. Exam (PN)-Nephrology - Vital Signs Vital signs: Period Temp Pulse Resp BP Sys/Weldon Pulse Ox Last 24 Hr 95 F-98.4 F 62-69 16-21 111-140/48-69 92-100 - General Appearance General appearance: well-developed, well-nourished EENT: ATNC Neck: supple Respiratory: clear Cardiology: edema, regular rate, regular rhythm Gastrointestinal: normoactive bowel sounds Neurologic: alert and oriented x3 Psychiatric: mood/affect appropriate - Lab 06/24/16 05:18 06/24/16 05:18 Most recent lab results ABG pH 7.238 (7.35-7.45) L 06/22/16 14:05 ABG pCO2 62.5 MM HG (35-48) H 06/22/16 14:05 ABG pO2 151.0 MM HG (80-95) H 06/22/16 14:05 ABG HCO3 23.0 MMOL/L (20-26) 06/22/16 14:05 ABG O2 Saturation 99.3 % (95-100) 06/22/16 14:05 Calcium 7.6 MG/DL (8.5-10.1) L 06/24/16 05:18 Assessment and Plan (1) Chest pain Status: Acute Assessment and plan: The patient has a history of cardiac disease. Appreciate input from cardiology. Current Visit: No (2) End stage renal disease Status: Chronic Assessment and plan: Continue with scheduled hemodialysis. Current Visit: No (3) Hypertension Status: Chronic Current Visit: Yes Qualifiers: Hypertension type: essential hypertension Qualified Code(s): I10 - Essential (primary) hypertension (4) Diabetes mellitus Status: Chronic Current Visit: No Qualifiers: Diabetes mellitus type: type 2 Diabetes mellitus complication detail: with chronic kidney disease Chronic kidney disease stage: on chronic dialysis (5) Secondary hyperparathyroidism Status: Chronic Current Visit: No (6) Dyslipidemia Status: Chronic Current Visit: Yes (7) Ischemic cardiomyopathy Status: Chronic Current Visit: No (8) Hx of CABG Status: Chronic Current Visit: No (9) Decreased hearing Status: Acute Current Visit: Yes (10) Decreased hearing of both ears Status: Acute Assessment and plan: Has been evaluated by ENT Current Visit: Yes
[2016-06-25 08:09] LABS: Basophils # 0.1 10*3/uL (0.0-0.2); Basophils % 1.4 % (0.0-0.8); Eosinophils # 0.3 10*3/uL (0.0-0.87); Eosinophils % 4.4 % (0.00-10.9); Hematocrit 30.9 VOL% (42.0-52.0); Hemoglobin 9.6 GM/DL (14.0-18.0); Immature Granulocytes % 0.5 %; Immature Granulocytes Absolute 0.03 #; Lymphocytes # 1.4 10*3/uL (1.4-4.0); Lymphocytes % 20.8 % (21.2-54.2); Mean Corpuscular HGB Conc 31.1 GM/DL (32-36); Mean Corpuscular Hemoglobin 29 PG (27-34); Mean Platelet Volume 11.4 FL (9.6-12.0); Monocytes # 1.2 10*3/uL (0.11-0.8); Monocytes % 17.6 % (1.7-12.7); Neutrophils # 3.6 10*3/uL (1.4-7.4); Neutrophils % 55.3 % (38.7-73.9); Platelet Count 234 T/CUMM (130-400); Red Blood Count 3.36 MC/CUMM (3.8-5.5); Red Cell Distribution Width 17.2 % (9.3-17.3); White Blood Count 6.6 T/CUMM (4-12)
[2016-06-25] MEDS: METOPROLOL TARTRATE 25 MG TABLET PO SCH ×2 (08:15→20:41)
[2016-06-25] MEDS: CLOPIDOGREL 75 MG TABLET PO SCH (08:15)
[2016-06-25] MEDS: ASPIRIN EC 81 MG TABLET PO SCH (08:15)
[2016-06-25] MEDS: PANTOPRAZOLE 40 MG TABLET PO SCH (08:15)
--- NOTE | 2016-06-25 08:27 | Pulmonology Progress Note ---
Pulmonary - PN: Subj Interval history: This 65-year-old man and congestive heart failure and has end-stage renal disease. He also has obstructive sleep apnea and I suspect obesity hypoventilation syndrome. He was quite lethargic but is now much more alert. He still continues to take his facemask BiPAP off during the night. He is due for dialysis today. He is not having any fever. 06/24/2016 patient is more alert. He seems to be resistant to using his BiPAP at night. Being evaluated by sleep services. 06/25/2016 patient to have cardiac catheterization. I would recommend general anesthesia for it. Sedation would be difficult to manage with his obesity hypoventilation, chronic hypercarbia. Exam (Progress Note) - Constitutional Vitals: Period Temp Pulse Resp BP Sys/Weldon Pulse Ox Last 24 Hr 95 F-98.4 F 62-68 16-20 111-141/48-73 92-100 Exam: Patient is alert and responsive. Vital signs normal. Pupils react to light. Throat is clear. Neck supple no bruits. Chest reveals a few basilar crackles. Heart normal rate rhythm no murmurs. Abdomen soft obese unable to palpate abdominal organs. Extremities no clubbing or cyanosis he has trace of pitting edema in both legs in the right arm. Results - Labs CBC & BMP: 06/25/16 08:01 06/24/16 05:18 Lab Results: I have reviewed the past 24 hour labs Assessment and Plan (1) Obstructive sleep apnea Status: Chronic Assessment and plan: Patient has not been using his CPAP regularly at night. I do not know the details of this diagnosis. 06/23/2016 seems much more alert now than he is using his BiPAP at night. 06/24/2016 important that he get set up to use CPAP or BiPAP at home post discharge. This is being addressed. 06/25/2016 and appears that he is using his BiPAP at night. When it does come off during the night he is pretty lethargic. Current Visit: Yes (2) Obesity hypoventilation syndrome Status: Acute Assessment and plan: I suspect he has obesity hypoventilation syndrome that was aggravated by preop for his cardiac catheterization. Agree with using BiPAP and allowing medication to get out of his system. If he still needs a catheterization would either use general anesthesia or minimal sedation. 06/23/2016 PCO2 elevated. 06/24/2016 has elevated PCO2 while awake. In his situation this is due to obesity hypoventilation syndrome. 06/25/2016 chronic ventilatory failure. Needs control of airway when he sedated for procedures such as cardiac catheterization. Would recommend general anesthesia for that. Current Visit: Yes (3) Chest pain Status: Acute Assessment and plan: Denies chest pain at present. 06/25/2016 to have cardiac evaluation for his chest pain. Current Visit: Yes (4) Decreased hearing Status: Acute Assessment and plan: Etiology of this is not clear 06/23/2016 ENT is evaluating. 06/24/2016 seems to hear me very well this morning. Current Visit: Yes (5) End stage renal disease Status: Chronic Assessment and plan: He is due for dialysis later today or tomorrow. 06/23/2016 for dialysis today. 06/24/2016 had dialysis yesterday. 06/25/2016 to have dialysis prior to a heart cath. Current Visit: No (6) Ischemic cardiomyopathy Status: Chronic Assessment and plan: No signs of active congestive heart failure. 06/23/2016 defer to cardiology. Current Visit: No
[2016-06-25 08:30] LABS: Eosinophils 2 % (0-10); Hypochromasia 1+; Lymphocytes 25 % (20-55); Ovalocytes Slight; Platelet Estimate Adequate; Segmented Neutrophils 61 % (50-85); Total Cells Counted 100
[2016-06-25 08:33] LABS: Calcium 7.5 MG/DL (8.5-10.1)
[2016-06-25 08:34] LABS: Osmolality,Calculated 284.1 MOS/KG (273-304); Potassium 4.6 MMOL/L (3.5-5.1)
--- NOTE | 2016-06-25 10:28 | Cardiology Progress Note ---
Assessment and Plan (1) Unstable angina Status: Acute Assessment and plan: Clinically stable at this time. Plan for cardiac catheterization once recovered from acute AMS. We will plan for minimal sedation. Current Visit: Yes (2) Obesity hypoventilation syndrome Status: Acute Current Visit: Yes (3) Obstructive sleep apnea Status: Chronic Assessment and plan: Per reports, he is noncompliant with CPAP. He is currently using BiPAP without difficulty. Pulmonology, Dr. Hartmann, is following. Current Visit: Yes (4) Anemia, chronic disease Status: Chronic Current Visit: Yes (5) Coronary artery disease Status: Chronic Current Visit: Yes Qualifiers: Coronary Disease-Associated Artery/Lesion type: [place] artery [place] vs. transplanted heart: [place] heart Associated angina: with unstable angina Qualified Code(s): I25.110 - Atherosclerotic heart disease of [place] coronary artery with unstable angina pectoris (6) End stage renal disease Status: Chronic Assessment and plan: Hemodialysis routinely. Managed per nephrology. Current Visit: Yes (7) Dyslipidemia Status: Chronic Current Visit: Yes (8) Hx of CABG Status: Chronic Current Visit: No (9) Hypertension Status: Chronic Assessment and plan: Continue current medication regimen. Current Visit: Yes Qualifiers: Hypertension type: essential hypertension Qualified Code(s): I10 - Essential (primary) hypertension Cardiology - PN: Subj Interval history: This is a 65-year-old man has a history of coronary disease and had his last evaluation in February 2015 was noted he had 3 grafts were patent with diffuse severe distal disease at that time. He had LV dysfunction and presents now with chest discomfort and hypotension. He has had problems with central sleep apnea and hypoventilation syndrome. He has been treated with BiPAP and is stable. He did not tolerate minimal sedation last time without having significant drops in his oxygen sats will have anesthesia assist with that currently. He is not having active angina. He developed clots in his right upper extremity as well as in his right internal jugular vein has had resulting swelling. He was started on Lovenox several days ago and is doing well from that with improvement in decreasing edema. I think he is ready for cardiac catheterization and our plan will be to set this up for the morning with anesthesia's assistance related to sedation. Exam (Progress Note) - Constitutional Vitals: Period Temp Pulse Resp BP Sys/Weldon Pulse Ox Last 24 Hr 95 F-98.4 F 62-68 16-20 111-141/48-73 92-100 Exam: General appearance: over weight, no acute distress - Head Head exam: Absent: abrasion, laceration, hematoma - ENT ENT exam: Present: other (Poor dentition). Normal external ear exam - Neck Neck exam: Present: normal inspection. Absent: tenderness - Respiratory Respiratory exam: Present: scattered rhonchi throughout. Absent: stridor, wheeze , accessory muscle use - Cardiovascular Cardiovascular exam: Present: regular rate and rhythm. Absent: bradycardia, tachycardia, irregular rhythm, murmur. Other (unable to assess for JVD due to habitus) - GI/Abdominal GI/Abdominal exam: Present: normal bowel sounds, soft, nontender. Absent: firm, distended, masses. Other (obese) - Extremities Exam Extremities exam: Present: warm, dry. Absent: bruising, calf tenderness - Neurological Exam Neurological exam: Present: drowsy but rousable, able to follow commands but lethargic. (Extremely hard of hearing) - Psychiatric Psychiatric exam: Present: slightly obtunded, calm. Slight confusion at times ( BUE soft limb wrist restraints in place to keep BiPAP mask in place) - Skin Skin exam: Present: normal color, warm. Absent: diaphoresis, cyanosis Result/EKG - Labs CBC & BMP: 06/25/16 08:01 06/25/16 08:01 Labs: Laboratory Results - last 24 hr 06/24/16 06/24/16 06/24/16 11:52 16:42 20:51 WBC RBC Hgb Hct MCV MCH MCHC RDW Plt Count MPV Neut % (Auto) Lymph % (Auto) [place] % (Auto) Eos % (Auto) Baso % (Auto) Neut # (Auto) Lymph # (Auto) [place] # (Auto) Eos # (Auto) Baso # (Auto) Total Counted Immature Gran % Nucleated RBC % Immature Gran # Segmented Neutrophils Lymphocytes Monocytes Eosinophils Nucleated RBCs # Platelet Estimate Hypochromasia Ovalocytes Morphology Comment Sodium Potassium Chloride Carbon Dioxide Anion Gap BUN Creatinine GFR Calculation BUN/Creatinine Ratio Glucose POC Glucose 136 H 146 H 101 Calculated Osmolality Calcium 06/25/16 06/25/16 06/25/16 07:23 08:01 08:01 WBC 6.6 RBC 3.36 L D Hgb 9.6 L Hct 30.9 L MCV 92.0 MCH 29 MCHC 31.1 L RDW 17.2 Plt Count 234 MPV 11.4 Neut % (Auto) 55.3 Lymph % (Auto) 20.8 L [place] % (Auto) 17.6 H Eos % (Auto) 4.4 Baso % (Auto) 1.4 H Neut # (Auto) 3.6 Lymph # (Auto) 1.4 [place] # (Auto) 1.2 H Eos # (Auto) 0.3 Baso # (Auto) 0.1 Total Counted 100 Immature Gran % 0.5 Nucleated RBC % 0.0 Immature Gran # 0.03 Segmented Neutrophils 61 Lymphocytes 25 Monocytes 12 Eosinophils 2 Nucleated RBCs # 0.00 Platelet Estimate Adequate Hypochromasia 1+ Ovalocytes Slight Morphology Comment Sodium 135 L Potassium 4.6 Chloride 99 Carbon Dioxide 25 Anion Gap 15.6 H BUN 55 H Creatinine 10.70 H GFR Calculation 6 BUN/Creatinine Ratio 5.00 L Glucose 105 POC Glucose 113 H Calculated Osmolality 284.1 Calcium 7.5 L Quality Measures - Stroke Symptom Onset Unknown: No - AMI Contraindication to ACEI/ARB: other (ESRD) Contraindications to ASA on arrival: other (Given at HD prior to arrival)
--- NOTE | 2016-06-25 12:48 | Sleep Medicine Progress Note ---
Assessment and Plan (1) Obstructive sleep apnea Status: Chronic Assessment and plan: Patient with uncontrolled sleep apnea most likely secondary to central sleep apnea. We do not have an ST BiPAP device available. He will need outpatient sleep study after discharge. We will continue to monitor his response to auto BiPAP and hopefully this will improve with time and often does. He was encouraged to be compliant with BiPAP. Current Visit: Yes (2) Hypertension Status: Chronic Current Visit: Yes Qualifiers: Hypertension type: essential hypertension Qualified Code(s): I10 - Essential (primary) hypertension (3) Coronary artery disease Status: Chronic Current Visit: No Sleep Medicine Subjective Interval history: Patient did sleep with BiPAP last night. He actually spent a little over 2 hours on it. He was on auto titration BiPAP and had an average device IPAP of 13 and an average device EPAP of 9. He had an average AHI of 20 and this is not on surprising for somebody with evidence of significant central sleep apnea on their diagnostic HST. For this reason, this patient will clearly need to be formally evaluated and titrated in the sleep lab. He may end up requiring an ST device with a backup rate. I will see if we can go ahead and switch him to a ST device while hospitalized but I agree with Dr. Hartmann, that he would probably be safer to utilize anesthesia rather than depending on current BiPAP support given his hypercarbia and sedation. Exam (Progress Note) - Constitutional Vitals: Period Temp Pulse Resp BP Sys/Weldon Pulse Ox Last 24 Hr 97.2 F-98.4 F 53-68 16-20 111-141/48-73 92-100 Exam: He is alert and responsive in no acute distress. Chest with fair air movement no focal wheeze or rhonchi. Cardiac exam reveals a regular rhythm without murmur or gallop. Abdomen soft nontender without palpable hepatosplenomegaly or mass. Extremities are without clubbing, cyanosis, or edema. Results - Labs CBC & BMP: 06/25/16 08:01 06/25/16 08:01 Lab Results: I have reviewed the past 24 hour labs
--- NOTE | 2016-06-25 12:50 | Dialysis Note ---
Dialysis Note - Dialysis Note Patient is seen at hemodialysis, he is tolerating this well. The patient does have some confusion he is not sure why he is in the hospital he does not remember much. Review of his chart reveals that he came in with some tachycardia and low blood pressure. I suspect the patient may have had a stroke or transient ischemic attack which affected his short-term memory.
[2016-06-25] MEDS: ENOXAPARIN 100 MG/ML SYRINGE SUBCUT SCH (14:42)
[2016-06-25] MEDS ORDERED: POTASSIUM CHLORIDE RIDER 10 MEQ in PREMIX 1 EACH IV PRN (14:59)
[2016-06-25] MEDS ORDERED: MAGNESIUM SULF RIDER 2 GM in PREMIX 1 EACH IV PRN (14:59)
--- NOTE | 2016-06-25 15:58 | Hospitalist Progress Note ---
Assessment and Plan (1) Unstable angina Status: Acute Assessment and plan: No chest pain now , keep follow with the cardiology plan to cath tomorrow for evaluation Current Visit: Yes (2) Diabetes mellitus Status: Chronic Assessment and plan: Sugar is controlled at present continue to monitor Current Visit: Yes (3) DVT (deep venous thrombosis) Status: Acute Assessment and plan: Right upper extremity DVT on Lovenox daily. Swelling improved Current Visit: Yes (4) Right serous otitis media Status: Acute Assessment and plan: No recurrence of hearing loss Current Visit: Yes Qualifiers: Chronicity: chronic Qualified Code(s): H65.21 - Chronic serous otitis media , right ear (5) Anemia, chronic disease Status: Chronic Assessment and plan: Noted improvement hemoglobin today keep monitor still slightly below the target for end-stage renal disease Current Visit: Yes (6) End stage renal disease Status: Chronic Current Visit: Yes Hospitalist: Subjective Interval history: Mr. Pena is a 65-year-old male with history of CVA or coronary artery disease , and ischemic cardiomyopathy. Patient had last cardiac cath in February 2015 and a reported to have severe [place] coronary disease and a few small vessel disease and the PCI was not option and was planned to treat medically to treat medically. His echo showed diastolic dysfunction with LV 50% EF along with septal and apical hypokinesis. Patient was admitted with a chest pain on dialysis. Cardiac cath was planned but the patient had AMS and hypoxic with dsaturation on pulse oximetry so it was posterior on Wednesday. Obstructive sleep apnea was suspected and being followed by pulmonary and now also by sleep medicine. He was reported to remove the mask and got confused. Dr. Chamorro has seen the patient and feels that patient has uncontrolled sleep apnea likely central sleep apnea he is on auto BiPAP. ST BiPAP device not available. Plan to do a formal sleep studies as outpatient. Cardiac cath was not able to perform again today. It is now is again scheduled for tomorrow with anesthesia assistance. Patient is awake at present no acute subjective symptoms Exam - Constitutional Vitals: Period Temp Pulse Resp BP Sys/Weldon Pulse Ox Last 24 Hr 97.2 F-98.4 F 53-68 16-20 111-164/48-81 92-100 General appearance: no acute distress, over weight - Respiratory Respiratory exam: Present: clear to auscultation bilaterally (clear to auscultation bilaterally except for faint rales at the bases), rales - Cardiovascular Cardiovascular exam: Present: regular rate and rhythm. Absent: tachycardia - GI/Abdominal GI/Abdominal exam: Present: normal bowel sounds, soft. Absent: tenderness - Neurological Exam Neurological exam: Present: alert, oriented X3 Results - Labs CBC & BMP: 06/25/16 08:01 06/25/16 08:01 Lab Results: I have reviewed the past 24 hour labs Quality Measures - Stroke Symptom Onset Unknown: No - AMI Contraindication to ACEI/ARB: other (ESRD) Contraindications to ASA on arrival: other (Given at HD prior to arrival)
[2016-06-25] MEDS: ATORVASTATIN 40 MG TABLET PO SCH (20:41)
[2016-06-26 07:28] LABS: Basophils # 0.1 10*3/uL (0.0-0.2); Eosinophils # 0.3 10*3/uL (0.0-0.87); Eosinophils % 3.5 % (0.00-10.9); Hematocrit 29.5 VOL% (42.0-52.0); Hemoglobin 9.3 GM/DL (14.0-18.0); Immature Granulocytes % 0.4 %; Immature Granulocytes Absolute 0.03 #; Lymphocytes # 1.7 10*3/uL (1.4-4.0); Lymphocytes % 22.7 % (21.2-54.2); Mean Corpuscular HGB Conc 31.5 GM/DL (32-36); Mean Corpuscular Hemoglobin 29 PG (27-34); Mean Corpuscular Volume 92.2 FL (87-102); Mean Platelet Volume 11.1 FL (9.6-12.0); Monocytes # 2.1 10*3/uL (0.11-0.8); Monocytes % 26.7 % (1.7-12.7); Neutrophils # 3.5 10*3/uL (1.4-7.4); Neutrophils % 45.7 % (38.7-73.9); Platelet Count 245 T/CUMM (130-400); Red Cell Distribution Width 17.1 % (9.3-17.3); White Blood Count 7.7 T/CUMM (4-12)
--- NOTE | 2016-06-26 07:44 | Pulmonology Progress Note ---
Pulmonary - PN: Subj Interval history: This 65-year-old man and congestive heart failure and has end-stage renal disease. He also has obstructive sleep apnea and I suspect obesity hypoventilation syndrome. He was quite lethargic but is now much more alert. He still continues to take his facemask BiPAP off during the night. He is due for dialysis today. He is not having any fever. 06/24/2016 patient is more alert. He seems to be resistant to using his BiPAP at night. Being evaluated by sleep services. 06/25/2016 patient to have cardiac catheterization. I would recommend general anesthesia for it. Sedation would be difficult to manage with his obesity hypoventilation, chronic hypercarbia. 06/26/2016 patient less dyspneic. When I rounded this morning he was asleep and not wearing his BiPAP or oxygen. I discussed with him once again the need to use the BiPAP overnight. He is for cardiac catheterization today. He should be under general anesthesia for it with his airway controlled. Exam (Progress Note) - Constitutional Vitals: Period Temp Pulse Resp BP Sys/Weldon Pulse Ox Last 24 Hr 97.0 F-99.1 F 53-72 16-18 109-164/54-81 92-100 Exam: Patient is alert and responsive. Vital signs normal. Pupils react to light. Throat is clear. Neck supple no bruits. Chest reveals a few basilar crackles. Heart normal rate rhythm no murmurs. Abdomen soft obese unable to palpate abdominal organs. Extremities no clubbing or cyanosis he has trace of pitting edema in both legs in the right arm. Little change from yesterday. Results - Labs CBC & BMP: 06/26/16 07:15 06/25/16 08:01 Lab Results: I have reviewed the past 24 hour labs Assessment and Plan (1) Obstructive sleep apnea Status: Chronic Assessment and plan: Patient has not been using his CPAP regularly at night. I do not know the details of this diagnosis. 06/23/2016 seems much more alert now than he is using his BiPAP at night. 06/24/2016 important that he get set up to use CPAP or BiPAP at home post discharge. This is being addressed. 06/25/2016 and appears that he is using his BiPAP at night. When it does come off during the night he is pretty lethargic. 06/26/2016 there is a problem with compliance here. Dr. Taylor is following from sleep services. Hopefully we can get him using his BiPAP or noninvasive facemask mechanical ventilation at night post discharge. Current Visit: Yes (2) Obesity hypoventilation syndrome Status: Acute Assessment and plan: I suspect he has obesity hypoventilation syndrome that was aggravated by preop for his cardiac catheterization. Agree with using BiPAP and allowing medication to get out of his system. If he still needs a catheterization would either use general anesthesia or minimal sedation. 06/23/2016 PCO2 elevated. 06/24/2016 has elevated PCO2 while awake. In his situation this is due to obesity hypoventilation syndrome. 06/25/2016 chronic ventilatory failure. Needs control of airway when he sedated for procedures such as cardiac catheterization. Would recommend general anesthesia for that. 06/26/2016 because of his severe obesity hypoventilation syndrome, he will need intubation and mechanical ventilation Simons cath. I do not think adequate sedation can be safely obtained for the procedure without intubation Current Visit: Yes (3) Chest pain Status: Acute Assessment and plan: Denies chest pain at present. 06/25/2016 to have cardiac evaluation for his chest pain. 06/26/2016 defer to cardiology. Current Visit: Yes (4) Decreased hearing Status: Acute Assessment and plan: Etiology of this is not clear 06/23/2016 ENT is evaluating. 06/24/2016 seems to hear me very well this morning. Current Visit: Yes (5) End stage renal disease Status: Chronic Assessment and plan: He is due for dialysis later today or tomorrow. 06/23/2016 for dialysis today. 06/24/2016 had dialysis yesterday. 06/25/2016 to have dialysis prior to a heart cath. 06/26/2016 had dialysis yesterday. Current Visit: No (6) Ischemic cardiomyopathy Status: Chronic Assessment and plan: No signs of active congestive heart failure. 06/23/2016 defer to cardiology. Current Visit: No
[2016-06-26 07:51] LABS: Eosinophils 9 % (0-10); Hypochromasia 1+; Lymphocytes 23 % (20-55); Segmented Neutrophils 44 % (50-85); Total Cells Counted 100
[2016-06-26 07:52] LABS: Macrocytosis 1+; Platelet Estimate Adequate
[2016-06-26] MEDS: PANTOPRAZOLE 40 MG TABLET PO SCH (08:46)
[2016-06-26] MEDS: ASPIRIN EC 81 MG TABLET PO SCH (08:46)
[2016-06-26] MEDS: METOPROLOL TARTRATE 25 MG TABLET PO SCH ×2 (08:46→20:29)
[2016-06-26] MEDS: CLOPIDOGREL 75 MG TABLET PO SCH (08:46)
--- NOTE | 2016-06-26 10:02 | Nephrology Progress Note ---
Nephrology - PN: Subj Interval history: Mr. Pena is seen if f/u of his ESRD. He dialyzed yesterday and did well. Today he is easily arousable and calm. Conversation is appropriate. He knows he is scheduled for cardiac catheterization today. Chest is clear. He'll be dialyzed tomorrow. Exam (PN)-Nephrology - Vital Signs Vital signs: Period Temp Pulse Resp BP Sys/Weldon Pulse Ox Last 24 Hr 97.0 F-99.1 F 53-72 16-18 109-164/54-81 92-99 - Lab 06/26/16 07:15 06/25/16 08:01 Most recent lab results ABG pH 7.238 (7.35-7.45) L 06/22/16 14:05 ABG pCO2 62.5 MM HG (35-48) H 06/22/16 14:05 ABG pO2 151.0 MM HG (80-95) H 06/22/16 14:05 ABG HCO3 23.0 MMOL/L (20-26) 06/22/16 14:05 ABG O2 Saturation 99.3 % (95-100) 06/22/16 14:05 Calcium 7.5 MG/DL (8.5-10.1) L 06/25/16 08:01
--- NOTE | 2016-06-26 10:12 | Hospitalist Progress Note ---
Assessment and Plan (1) Unstable angina Status: Acute Assessment and plan: No chest pain now , cardiac cath is planned for this afternoon Current Visit: Yes (2) Diabetes mellitus Status: Chronic Assessment and plan: Sugar is controlled at present continue to monitor Current Visit: Yes (3) DVT (deep venous thrombosis) Status: Acute Assessment and plan: Right upper extremity DVT on Lovenox daily. Swelling improved Current Visit: Yes (4) Right serous otitis media Status: Acute Assessment and plan: No recurrence of hearing loss Current Visit: Yes Qualifiers: Chronicity: chronic Qualified Code(s): H65.21 - Chronic serous otitis media , right ear (5) Anemia, chronic disease Status: Chronic Assessment and plan: Overall stable H&H Current Visit: Yes (6) End stage renal disease Status: Chronic Current Visit: Yes Hospitalist: Subjective Interval history: Mr. Pena is a 65-year-old male with history of CVA or coronary artery disease , and ischemic cardiomyopathy. Patient had last cardiac cath in February 2015 and a reported to have severe [place] coronary disease and a few small vessel disease and the PCI was not option and was planned to treat medically to treat medically. His echo showed diastolic dysfunction with LV 50% EF along with septal and apical hypokinesis. Patient was admitted with a chest pain on dialysis. Cardiac cath was planned but the patient had AMS and hypoxic with dsaturation on pulse oximetry so it was posterior on Wednesday. Obstructive sleep apnea was suspected and being followed by pulmonary and now also by sleep medicine. He was reported to remove the mask and got confused. Dr. Chamorro has seen the patient and feels that patient has uncontrolled sleep apnea likely central sleep apnea he is on auto BiPAP. ST BiPAP device not available. Plan to do a formal sleep studies as outpatient. Cardiac cath was not able to perform yesterday . It is now is scheduled for today with anesthesia assistance. Patient is awake at present no acute subjective symptoms. Per pulmonary note he was not using BiPAP while sleeping earlier I have encouraged him to use BiPAP at the time of sleep. He denies any chest pain at present Exam - Constitutional Vitals: Period Temp Pulse Resp BP Sys/Weldon Pulse Ox Last 24 Hr 97.0 F-99.1 F 53-72 16-22 109-164/54-81 92-99 General appearance: no acute distress - Expanded ENT Exam Mouth exam: Present: moist Teeth exam: Present: other (Poor dental hygiene) - Respiratory Respiratory exam: Present: clear to auscultation bilaterally. Absent: rales, rhonchi - Cardiovascular Cardiovascular exam: Present: regular rate and rhythm. Absent: tachycardia - GI/Abdominal GI/Abdominal exam: Present: normal bowel sounds, soft. Absent: tenderness - Extremities Exam Extremities exam: Present: edema (Right upper extremity edema improved) - Neurological Exam Neurological exam: Present: alert, oriented X3 Results - Labs CBC & BMP: 06/26/16 07:15 06/25/16 08:01 Lab Results: I have reviewed the past 24 hour labs Quality Measures - Stroke Symptom Onset Unknown: No - AMI Contraindication to ACEI/ARB: other (ESRD) Contraindications to ASA on arrival: other (Given at HD prior to arrival)
[2016-06-26] MEDS: ENOXAPARIN 100 MG/ML SYRINGE SUBCUT SCH (11:13)
[2016-06-26] MEDS ORDERED: LIDOCAINE 1%/EPI INJ 20 ML VIAL ONE (13:35)
[2016-06-26] MEDS ORDERED: HEPARIN/NACL 0.9% 2 UNITS/ML 500 ML IV ONE (13:35)
[2016-06-26] MEDS ORDERED: PROPOFOL 200 MG/20 ML VIAL IV ONE (13:45)
[2016-06-26] MEDS ORDERED: SUCCINYLCHOLINE 200 MG/10 ML VIAL ONE (13:45)
[2016-06-26] MEDS ORDERED: LIDOCAINE 100 MG/5 ML SYRINGE ONE (13:45)
[2016-06-26] MEDS ORDERED: ONDANSETRON 4 MG/2 ML VIAL ONE (13:45)
[2016-06-26] MEDS ORDERED: LIDOCAINE 4% TOP SOLN 50 ML BOTTLE ONE (13:45)
--- NOTE | 2016-06-26 13:45 | History and Physical Update ---
Sedation H&P Update - History and Physical H&P was reviewed, the patient examined and there: are no changes in the patients condition since last H&P was completed. - Sedation Plan for Sedation: other Patient Consent: Procedure disscussed with patient and patinet has consented., Risks and benefits were discussed with patient,including infection,, bleeding, injury to surrounding structures, seizure, temporary nerve, Patient understands and accepts potential risks/benefits and agrees to, proceed. ASA Class: IV Airway Assessment: Class IV: Only hard palate visible
--- NOTE | 2016-06-26 13:54 | Sleep Medicine Progress Note ---
Assessment and Plan (1) Obstructive sleep apnea Status: Chronic Assessment and plan: He is doing better with his auto titration BiPAP. Compliance seems to be improving as well as control of his obstructive sleep apnea. Current Visit: Yes (2) Hypertension Status: Chronic Current Visit: Yes Qualifiers: Hypertension type: essential hypertension Qualified Code(s): I10 - Essential (primary) hypertension (3) Coronary artery disease Status: Chronic Current Visit: No Sleep Medicine Subjective Interval history: The patient did much better and sleeping with his auto titration BiPAP last night. He is getting better results and can tell that he is improving. He spent over 5 hours on BiPAP last night. His average device IPAP was 16 and his average device EPAP was 11.7. His AHI was down to 9.6. This is significantly improved from the night before. I encouraged him to continue to utilize his BiPAP when sleeping. This should benefit his cardiac situation and it is pleasing to see him responding and getting better. Exam (Progress Note) - Constitutional Vitals: Period Temp Pulse Resp BP Sys/Weldon Pulse Ox Last 24 Hr 97.0 F-99.1 F 64-72 16-22 109-164/60-81 92-100 Exam: He is alert and responsive in no acute distress. Chest with fair air movement no focal wheeze or rhonchi. Cardiac exam reveals a regular rhythm without murmur or gallop. Abdomen soft nontender without palpable hepatosplenomegaly or mass. Extremities are without clubbing, cyanosis, or edema. Results - Labs CBC & BMP: 06/26/16 07:15 06/25/16 08:01 Lab Results: I have reviewed the past 24 hour labs
[2016-06-26] MEDS ORDERED: fentaNYL 100 MCG/2 ML VIAL ONE (14:55)
[2016-06-26] MEDS ORDERED: MIDAZOLAM 2 MG/2 ML VIAL ONE (14:55)
[2016-06-26] MEDS ORDERED: ePHEDrine 50 MG/ML AMP ONE (15:02)
--- NOTE | 2016-06-26 15:15 | Cardiac Catheterization ---
Date of Procedure:: 06/26/16 Pre-op Diagnosis: Patient with hypotension precordial discomfort known coronary disease for evaluation Post-op diagnosis: same Procedure: Clinical summary: 65-year-old man with a history of coronary bypass grafting evaluated last in 2014 where he fell he has severe distal disease with open grafts to the right coronary circumflex and to the LAD. He presents with an episode of hypotension and precordial discomfort with marginal troponins. He is for diagnostic evaluation and intervention if indicated. He had severe hypoxemia with minimal sedation and for that reason anesthesia is assisting with his airway management. Description of procedure: Procedures performed: 1: Left heart catheterization 2: [place] coronary angiography 3: Vein graft injection 4: APRIL graft injection 5: Right femoral sheath injection 6: Minx closure right femoral arteriotomy site After obtaining informed consent the patient brought to the Electrode Cleaning Machine Operator of the right groin was prepped and draped in usual sterile manner. Using intravenous sedation local anesthesia a needle was inserted into the right common femoral artery and a 6 [place] sheath was positioned. Anesthesia had been consulted for airway management and they electively intubated the patient such that we could protect his airway. A Reed left coronary catheter was advanced over guidewire and fluoroscopic control the ascending aorta where angiography left coronary was undertaken multiple views. After adequate angiograms of the left coronary were obtained this catheter was withdrawn and in a.m. or him right coronary catheter was advanced over guidewire under fluoroscopic control to the ascending aorta where the right coronary ostium was engaged and multiple angiograms the right coronary were obtained in multiple views. All catheter manipulations were done under fluoroscopic control with exchanges over guidewire. The a.m. Doc catheter was used to opacify the right coronary vein graft. Multiple angiograms of the right coronary vein graft were obtained in multiple views. After adequate angiograms of the right coronary vein graft were obtained this catheter was withdrawn and a APRIL graft catheter was advanced over guidewire under fluoroscopic control to the ascending aorta where it was manipulated into the origin of the APRIL graft and multiple angiograms of the APRIL graft were undertaken multiple views. After adequate angiograms of the APRIL graft were obtained this catheter then was manipulated into the origin of the circumflex graft and multiple angiograms of the circumflex graft were undertaken in multiple views. After adequate angiograms were obtained this catheter was withdrawn over a guidewire and a pigtail ventriculographic catheter was advanced over guidewire under fluoroscopic control to the ascending aorta where a ventriculogram was obtained in the [place] projection. After ventriculography was obtained this catheter was withdrawn from the ventricle to the aorta under hemodynamic monitoring and removed over guidewire. Patient then underwent right femoral sheath angiography which demonstrated anatomy appropriate for minx closure. This was accomplished without difficulty. Good hemostasis was obtained. Because the patient was electively intubated he was transferred to the ICU for airway management and recovering from catheterization. Hemodynamic please see coming data sheet Coronary arteriography: Left coronary artery: The left main coronary artery is well-developed and free of significant obstructing lesions. The circumflex coronary artery is a small nondominant vessel that is subtotally occluded near its origin. The left anterior descending coronary artery is a large vessel that is completely occluded beyond a large first septal web database developer. The distal LAD is not noted to fill injection of the [place] left coronary. The circumflex distally is not noted to fill on injection of the [place] left. Right coronary artery: The right coronary artery is a large dominant vessel that is extremely tortuous through its proximal one third. It is completely occluded at its midportion. Filling of the distal right is none noted on injection of the [place] right coronary artery. Vein graft injection: Right coronary vein graft Right coronary vein graft is widely patent with good distal flow and no evidence of significant flow-limiting stenosis. There are several intraluminal eccentric plaques noted in the right coronary graft. 1 of these appears to be roughly 50% flow-limiting. The remainder of the vein graft as well as the distal vessel appear to be free of significant obstructing lesions. Circumflex vein graft: Circumflex vein graft is widely patent with excellent distal flow and no evidence of significant flow-limiting stenosis. The distal anastomosis is noted to be free of significant obstructing lesions. The distal vessel is noted to be large and free of significant obstructing lesions. APRIL graft: APRIL graft is widely patent with excellent distal flow with is widely patent to the distal anastomosis. The distal vessel is severely diffusely diseased. There is a proximal diagonal which appears to fill and is free of significant obstructing lesions. Left ventriculography: Left ventricle is known to be of normal size with normal contractility. Mitral and aortic structures appear normal by ventriculogram. Overall ejection fraction is estimated to be in the 55-60% range. Right femoral sheath angiography: After injection of contrast right femoral sheath appears to enter the common femoral above the bifurcation. No significant disease of the distal iliac, common femoral or bifurcation be noted based on this limited angiographic study. Conclusions: 1: Severe [place] multivessel coronary artery disease with diffuse severe distal disease of the LAD 2: 3 of 3 grafts patent with moderate disease of the right coronary vein graft for continued medical therapy and risk factor modification 3: Normal left ventricular size and function 4: Minx closure right femoral arteriotomy site Discussion recommendations: Patient presents with a hypotension elevated troponin and chest discomfort. He has diffuse severe disease of the LAD with significant disease of the proximal right coronary artery and 3 of 3 grafts patent with moderate to severe disease of his right graft. I am inclined to continue medical management at this point. He does have some pathology of his posterior pharynx which will be evaluated by ENT. This was noted during elective intubation. He will be monitored post procedure with continued mechanical ventilation after elective intubation Surgeon / Physician: Quique Contreras - Medications / Follow-up
--- NOTE | 2016-06-26 16:35 | Anesthesia ---
Anesthesia Post OP - Post Ansesthetic Evaluation Patient seen in post op: Yes Resp: within normal limits CV: within normal limits Mental: within normal limits Temp: within normal limits [id number]: within normal limits Nausea and Vomiting: within normal limits Pain: within normal limits
[2016-06-26] MEDS: ATORVASTATIN 40 MG TABLET PO SCH (20:29)
--- NOTE | 2016-06-27 07:26 | Pulmonology Progress Note ---
Pulmonary - PN: Subj Interval history: Patient is a 65-year-old overweight black man that has end-stage renal disease. He has a history of obstructive sleep apnea and obesity hypoventilation syndrome. He has known coronary artery disease and had a cardiac catheterization. His grafts are still open and he did fairly well with a cath. He is still requiring BiPAP is still quite sleepy after the cath. He will probably have dialysis today. He apparently was found to have a growth in his hypopharynx and will be seen by ENT Exam (Progress Note) - Constitutional Vitals: Period Temp Pulse Resp BP Sys/Weldon Pulse Ox Last 24 Hr 97.0 F-98.6 F 16-98 10-23 89-181/47-99 92-100 General appearance: over weight, other (Patient is still quite lethargic but in no distress) - Head Head exam: Present: normal inspection, normocephalic - Eye Eye exam: Present: EOMI. Absent: scleral icterus Pupils: Present: DINESH - ENT ENT exam: Present: normal exam (His throat was not evaluated) - Neck Neck exam: Present: normal inspection (He does have a large neck). Absent: lymphadenopathy, thyromegaly - Respiratory Respiratory exam: Present: clear to auscultation bilaterally. Absent: rhonchi, wheezes - Cardiovascular Cardiovascular exam: Present: regular rate and rhythm. Absent: gallop, systolic murmur - GI/Abdominal GI/Abdominal exam: Present: normal bowel sounds, soft. Absent: organomegaly, tenderness - Extremities Exam Extremities exam: Absent: calf tenderness, edema - Neurological Exam Neurological exam: Present: altered (He is quite lethargic now.) - Skin Skin exam: Present: warm, dry Results - Labs CBC & BMP: 06/26/16 07:15 06/25/16 08:01 Assessment and Plan (1) End stage renal disease Status: Chronic Assessment and plan: The patient has been getting dialysis and will probably have dialysis today. Current Visit: No (2) Hypertension Status: Chronic Assessment and plan: His blood pressure has been very stable. Current Visit: Yes Qualifiers: Hypertension type: essential hypertension Qualified Code(s): I10 - Essential (primary) hypertension (3) Diabetes mellitus Status: Chronic Assessment and plan: His glucose is around 100. Current Visit: No Qualifiers: Diabetes mellitus type: type 2 Diabetes mellitus complication detail: with chronic kidney disease Chronic kidney disease stage: on chronic dialysis (4) Coronary artery disease Status: Chronic Assessment and plan: He had a cardiac catheterization and his grafts were open. Current Visit: No (5) Chest pain Status: Acute Assessment and plan: Patient apparently had chest pain and has had a cardiac workup Current Visit: Yes (6) Obstructive sleep apnea Status: Chronic Assessment and plan: The patient will continue with BiPAP for now. Current Visit: Yes
--- NOTE | 2016-06-27 07:26 | Hospitalist Progress Note ---
Assessment and Plan - Time spent with patient Time spent with patient: Less than 30 minutes (1) Coronary artery disease Status: Chronic Assessment and plan: Patient has coronary artery disease and is status post cardiac catheterization by Dr. Contreras. He was recommended medical therapy and risk factor modification. Cardiology continues to follow and assist. Current Visit: No (2) Diabetes mellitus Status: Chronic Assessment and plan: Blood sugars well controlled. Continue current regimen. Current Visit: No Qualifiers: Diabetes mellitus type: type 2 Diabetes mellitus complication detail: with chronic kidney disease Chronic kidney disease stage: on chronic dialysis (3) Obstructive sleep apnea Status: Chronic Assessment and plan: Patient has obstructive sleep apnea and is currently on BiPAP. Pulmonary is following and assisting. Current Visit: Yes (4) DVT (deep venous thrombosis) Status: Acute Assessment and plan: Patient has right upper extremity DVT and is on Lovenox therapy. Current Visit: Yes (5) End stage renal disease Status: Chronic Assessment and plan: Patient has end-stage renal disease on hemodialysis. Nephrology is following and assisting. Current Visit: No (6) Hypertension Status: Chronic Assessment and plan: Patient has chronic essential hypertension and is currently normotensive. Continue current medical regimen. Current Visit: Yes Qualifiers: Hypertension type: essential hypertension Qualified Code(s): I10 - Essential (primary) hypertension Hospitalist: Subjective Interval history: Patient has no complaints of chest pain or shortness of breath today. He is wearing BiPAP and is awake and alert. He underwent cardiac catheterization yesterday by Dr. Contreras and had severe crow multivessel coronary artery disease with diffuse severe distal disease of the LAD and 3 of 3 grafts patent with moderate disease in the right coronary vein graft. Recommendations for medical therapy and risk factor modification. Exam - Constitutional Vitals: Period Temp Pulse Resp BP Sys/Weldon Pulse Ox Last 24 Hr 97.0 F-98.6 F 16-98 10-23 89-181/47-99 92-100 General appearance: no acute distress - Head Head exam: Present: normocephalic, atraumatic - Eye Eye exam: Present: EOMI Pupils: Present: DINESH - ENT ENT exam: Present: normal exam - Expanded ENT Exam Mouth exam: Present: moist Teeth exam: Present: other (Poor dental hygiene) - Neck Neck exam: Present: normal inspection - Respiratory Respiratory exam: Present: clear to auscultation bilaterally. Absent: rales, rhonchi, wheezes - Cardiovascular Cardiovascular exam: Present: regular rate and rhythm. Absent: gallop, rubs, systolic murmur - GI/Abdominal GI/Abdominal exam: Present: normal bowel sounds, soft. Absent: mass, tenderness , rebound - Extremities Exam Extremities exam: Absent: calf tenderness, edema - Back Exam Back exam: Present: normal inspection - Neurological Exam Neurological exam: Present: alert, oriented X3, CN II-XII intact. Absent: motor sensory deficit - Psychiatric Psychiatric exam: Present: normal affect, normal mood - Skin Skin exam: Present: warm, dry Results - Labs CBC & BMP: 06/26/16 07:15 06/25/16 08:01 Lab Results: I have reviewed the past 24 hour labs Quality Measures - VTE Contraindication to Pharmacological VTE Prophylaxis: High Risk of Bleeding - Stroke Symptom Onset Unknown: No - AMI Contraindication to ACEI/ARB: other (ESRD) Contraindications to ASA on arrival: other (Given at HD prior to arrival)
[2016-06-27 08:06] LABS: Basophils # 0.1 10*3/uL (0.0-0.2); Basophils % 0.3 % (0.0-0.8); Hematocrit 31.1 VOL% (42.0-52.0); Hemoglobin 9.4 GM/DL (14.0-18.0); Immature Granulocytes % 1.2 %; Immature Granulocytes Absolute 0.27 #; Lymphocytes # 1.5 10*3/uL (1.4-4.0); Lymphocytes % 6.8 % (21.2-54.2); Mean Corpuscular HGB Conc 30.2 GM/DL (32-36); Mean Corpuscular Hemoglobin 29 PG (27-34); Mean Corpuscular Volume 95.1 FL (87-102); Mean Platelet Volume 11.7 FL (9.6-12.0); Monocytes # 2.9 10*3/uL (0.11-0.8); Monocytes % 13.3 % (1.7-12.7); Neutrophils # 17.1 10*3/uL (1.4-7.4); Neutrophils % 78.4 % (38.7-73.9); Platelet Count 254 T/CUMM (130-400); Red Blood Count 3.27 MC/CUMM (3.8-5.5); Red Cell Distribution Width 17.2 % (9.3-17.3); White Blood Count 21.8 T/CUMM (4-12)
[2016-06-27] MEDS: CLOPIDOGREL 75 MG TABLET PO SCH (08:10)
[2016-06-27] MEDS: ASPIRIN EC 81 MG TABLET PO SCH (08:10)
[2016-06-27] MEDS: PANTOPRAZOLE 40 MG TABLET PO SCH (08:10)
[2016-06-27] MEDS: METOPROLOL TARTRATE 25 MG TABLET PO SCH ×2 (08:10→20:28)
--- NOTE | 2016-06-27 09:13 | Cardiology Progress Note ---
Assessment and Plan (1) Unstable angina Status: Acute Assessment and plan: Clinically stable at this time. Plan for cardiac catheterization once recovered from acute AMS. We will plan for minimal sedation. 06/27: Patient is clinically stable and has had catheterization demonstrating 3 of 3 grafts patent with moderate disease of the right coronary graft for continued medical therapy. Is diffusely diseased and would not be optimal for PCI. He has distal LAD disease beyond the distal anastomosis for continued medical therapy. Current Visit: Yes (2) Obesity hypoventilation syndrome Status: Acute Current Visit: Yes (3) Obstructive sleep apnea Status: Chronic Assessment and plan: Per reports, he is noncompliant with CPAP. He is currently using BiPAP without difficulty. Pulmonology, Dr. Hartmann, is following. Current Visit: Yes (4) Anemia, chronic disease Status: Chronic Current Visit: Yes (5) Coronary artery disease Status: Chronic Current Visit: Yes Qualifiers: Coronary Disease-Associated Artery/Lesion type: [place] artery [place] vs. transplanted heart: jamul heart Associated angina: with unstable angina Qualified Code(s): I25.110 - Atherosclerotic heart disease of jamul coronary artery with unstable angina pectoris (6) End stage renal disease Status: Chronic Assessment and plan: Hemodialysis routinely. Managed per nephrology. Current Visit: Yes (7) Dyslipidemia Status: Chronic Current Visit: Yes (8) Hx of CABG Status: Chronic Current Visit: No (9) Hypertension Status: Chronic Assessment and plan: Continue current medication regimen. Current Visit: Yes Qualifiers: Hypertension type: essential hypertension Qualified Code(s): I10 - Essential (primary) hypertension Cardiology - PN: Subj Interval history: The patient is clinically stable and doing well post catheterization. He had some abnormalities of his posterior pharynx which are going to be addressed by ENT. He is oxygenating reasonably well and is awake and alert we will transfer him back to the floor. He is to continue medical therapy for his coronary disease as outlined post catheterization. Exam (Progress Note) - Constitutional Vitals: Period Temp Pulse Resp BP Sys/Weldon Pulse Ox Last 24 Hr 97.0 F-98.4 F 16-98 10-23 89-181/47-99 94-100 Exam: General appearance: over weight, no acute distress - Head Head exam: Absent: abrasion, laceration, hematoma - ENT ENT exam: Present: other (Poor dentition). Normal external ear exam - Neck Neck exam: Present: normal inspection. Absent: tenderness - Respiratory Respiratory exam: Present: scattered rhonchi throughout. Absent: stridor, wheeze , accessory muscle use - Cardiovascular Cardiovascular exam: Present: regular rate and rhythm. Absent: bradycardia, tachycardia, irregular rhythm, murmur. Other (unable to assess for JVD due to habitus) - GI/Abdominal GI/Abdominal exam: Present: normal bowel sounds, soft, nontender. Absent: firm, distended, masses. Other (obese) - Extremities Exam Extremities exam: Present: warm, dry. Absent: bruising, calf tenderness - Neurological Exam Neurological exam: Present: drowsy but rousable, able to follow commands but lethargic. (Extremely hard of hearing) - Psychiatric Psychiatric exam: Present: slightly obtunded, calm. Slight confusion at times ( BUE soft limb wrist restraints in place to keep BiPAP mask in place) - Skin Skin exam: Present: normal color, warm. Absent: diaphoresis, cyanosis Result/EKG - Labs CBC & BMP: 06/27/16 07:24 06/25/16 08:01 Labs: Laboratory Results - last 24 hr 06/26/16 06/26/16 06/26/16 11:56 16:10 20:25 WBC RBC Hgb Hct MCV MCH MCHC RDW Plt Count MPV Neut % (Auto) Lymph % (Auto) [place] % (Auto) Eos % (Auto) Baso % (Auto) Neut # (Auto) Lymph # (Auto) [place] # (Auto) Eos # (Auto) Baso # (Auto) Immature Gran % Nucleated RBC % Immature Gran # Nucleated RBCs # POC Glucose 81 99 100 06/27/16 06/27/16 07:24 07:47 WBC 21.8 H D RBC 3.27 L Hgb 9.4 L Hct 31.1 L MCV 95.1 MCH 29 MCHC 30.2 L RDW 17.2 Plt Count 254 MPV 11.7 Neut % (Auto) 78.4 H Lymph % (Auto) 6.8 L [place] % (Auto) 13.3 H Eos % (Auto) 0.0 Baso % (Auto) 0.3 Neut # (Auto) 17.1 H Lymph # (Auto) 1.5 [place] # (Auto) 2.9 H Eos # (Auto) 0.0 Baso # (Auto) 0.1 Immature Gran % 1.2 Nucleated RBC % 0.0 Immature Gran # 0.27 Nucleated RBCs # 0.00 POC Glucose 94 Quality Measures - VTE Contraindication to Pharmacological VTE Prophylaxis: High Risk of Bleeding - Stroke Symptom Onset Unknown: No - AMI Contraindication to ACEI/ARB: other (ESRD) Contraindications to ASA on arrival: other (Given at HD prior to arrival)
[2016-06-27 10:07] LABS: Band Neutrophils 6 % (0-10); Hypochromasia 1+; Lymphocytes 6 % (20-55); Macrocytosis 1+; Platelet Estimate Adequate; Segmented Neutrophils 76 % (50-85); Total Cells Counted 100
[2016-06-27] MEDS: ENOXAPARIN 100 MG/ML SYRINGE SUBCUT SCH (11:00)
--- NOTE | 2016-06-27 11:25 | Nephrology Progress Note ---
Nephrology - PN: Subj Interval history: Pt in good spirits. BiPap on. Denies SOB/pain. C/O hunger. Breakfast tray ordered. Exam (PN)-Nephrology - Vital Signs Vital signs: Period Temp Pulse Resp BP Sys/Weldon Pulse Ox Last 24 Hr 97.0 F-98.6 F 16-98 10-23 89-181/47-99 92-100 - General Appearance General appearance: well-developed, obese EENT: ATNC, PERRL, mucous membranes dry, hearing intact, vision intact Neck: no JVD, no thyromegaly Respiratory: no kyphosis, clear Cardiology: no murmurs, no rub, no edema Gastrointestinal: normoactive bowel sounds, no tenderness Integumentary: no rash, warm and dry Neurologic: no focal deficit, no asterixis, alert and oriented x3 Musculoskeletal: no erythema, no cyanosis - Lab 06/27/16 07:24 06/25/16 08:01 Most recent lab results ABG pH 7.238 (7.35-7.45) L 06/22/16 14:05 ABG pCO2 62.5 MM HG (35-48) H 06/22/16 14:05 ABG pO2 151.0 MM HG (80-95) H 06/22/16 14:05 ABG HCO3 23.0 MMOL/L (20-26) 06/22/16 14:05 ABG O2 Saturation 99.3 % (95-100) 06/22/16 14:05 Calcium 7.5 MG/DL (8.5-10.1) L 06/25/16 08:01 Assessment and Plan (1) End stage renal disease on dialysis Problem details: No acute indication for HD at this time. Status: Acute Assessment and plan: Routine CHD today. UF to EDW as tolerated by hemodynamics. To helms, stable. Current Visit: No
--- NOTE | 2016-06-27 14:21 | Dialysis Note ---
Dialysis Note - Dialysis Note S: Pt seen on dialysis. No c/o. O: VSS A: ESRD on CHD, tolerating well s complications. P: Continue routine CHD as prescribed.
[2016-06-27] MEDS: ATORVASTATIN 40 MG TABLET PO SCH (20:28)
[2016-06-28 05:44] LABS: Basophils # 0.1 10*3/uL (0.0-0.2); Basophils % 0.6 % (0.0-0.8); Eosinophils # 0.3 10*3/uL (0.0-0.87); Eosinophils % 1.9 % (0.00-10.9); Immature Granulocytes % 0.5 %; Immature Granulocytes Absolute 0.08 #; Lymphocytes # 1.6 10*3/uL (1.4-4.0); Lymphocytes % 10.4 % (21.2-54.2); Mean Corpuscular Hemoglobin 29 PG (27-34); Mean Corpuscular Volume 92.7 FL (87-102); Mean Platelet Volume 11.8 FL (9.6-12.0); Monocytes # 2.1 10*3/uL (0.11-0.8); Monocytes % 13.6 % (1.7-12.7); Neutrophils # 11.1 10*3/uL (1.4-7.4); Platelet Count 225 T/CUMM (130-400); Red Blood Count 3.13 MC/CUMM (3.8-5.5); Red Cell Distribution Width 17.6 % (9.3-17.3); White Blood Count 15.2 T/CUMM (4-12)
[2016-06-28] MEDS: ASPIRIN EC 81 MG TABLET PO SCH (08:59)
[2016-06-28] MEDS: CLOPIDOGREL 75 MG TABLET PO SCH (09:00)
[2016-06-28] MEDS: METOPROLOL TARTRATE 25 MG TABLET PO SCH ×2 (09:00→21:03)
[2016-06-28] MEDS: PANTOPRAZOLE 40 MG TABLET PO SCH (09:00)
--- NOTE | 2016-06-28 09:02 | Pulmonology Progress Note ---
Pulmonary - PN: Subj Interval history: Patient is a 65-year-old overweight black man that has end-stage renal disease. He has a history of obstructive sleep apnea and obesity hypoventilation syndrome. He has known coronary artery disease and had a cardiac catheterization. His grafts are still open and he did fairly well with a cath. Yesterday he had dialysis and did well. He did use to BiPAP through the night. He is breathing comfortably and more alert today. He says he is feeling better. He has some cough but not having any sputum. He thinks the BiPAP helps at night. Exam (Progress Note) - Constitutional Vitals: Period Temp Pulse Resp BP Sys/Weldon Pulse Ox Last 24 Hr 97.2 F-98.7 F 69-79 12-20 112-151/55-82 92-100 Exam: General appearance: over weight, other (Patient is alert now and comfortable and in no distress.) - Head Head exam: Present: normal inspection, normocephalic - Eye Eye exam: Present: EOMI. Absent: scleral icterus Pupils: Present: DINESH - ENT ENT exam: Present: normal exam (His throat was not evaluated) - Neck Neck exam: Present: normal inspection (He does have a large neck). Absent: lymphadenopathy, thyromegaly - Respiratory Respiratory exam: Present: clear to auscultation bilaterally. He is moving air well without any rales or wheezing. - Cardiovascular Cardiovascular exam: Present: regular rate and rhythm. Absent: gallop, systolic murmur - GI/Abdominal GI/Abdominal exam: Present: normal bowel sounds, soft. Absent: organomegaly, tenderness - Extremities Exam Extremities exam: Absent: calf tenderness, edema - Neurological Exam Neurological exam: Present: altered (He is alert and talking appropriately now.) - Skin Skin exam: Present: warm, dry Results - Labs CBC & BMP: 06/28/16 04:50 06/25/16 08:01 Assessment and Plan (1) End stage renal disease Status: Chronic Assessment and plan: The patient had dialysis yesterday and did fairly well. Current Visit: No (2) Hypertension Status: Chronic Assessment and plan: His blood pressure has been very stable. Current Visit: Yes Qualifiers: Hypertension type: essential hypertension Qualified Code(s): I10 - Essential (primary) hypertension (3) Diabetes mellitus Status: Chronic Assessment and plan: His glucose is 81 today. Current Visit: No Qualifiers: Diabetes mellitus type: type 2 Diabetes mellitus complication detail: with chronic kidney disease Chronic kidney disease stage: on chronic dialysis (4) Coronary artery disease Status: Chronic Assessment and plan: He had a cardiac catheterization and his grafts were open. He is not having any chest pain now. Current Visit: No (5) Chest pain Status: Acute Assessment and plan: Patient apparently had chest pain and has had a cardiac workup. He feels better today. Current Visit: Yes (6) Obstructive sleep apnea Status: Chronic Assessment and plan: The patient will continue with BiPAP for now. He feels like it helps a lot and he wants to get a machine for home. Current Visit: Yes
--- NOTE | 2016-06-28 09:25 | Hospitalist Progress Note ---
Assessment and Plan - Time spent with patient Time spent with patient: Less than 30 minutes (1) Coronary artery disease Status: Chronic Assessment and plan: Patient has coronary artery disease and is status post cardiac catheterization by Dr. Contreras. He was recommended medical therapy and risk factor modification. Cardiology continues to follow and assist. 06/28/16: Continuing medical therapy. Awaiting any further recommendations per cardiology. Current Visit: No (2) Diabetes mellitus Status: Chronic Assessment and plan: Blood sugars well controlled. Continue current regimen. 06/28/16: Blood sugars remain in good control. Continue current regimen. Current Visit: No Qualifiers: Diabetes mellitus type: type 2 Diabetes mellitus complication detail: with chronic kidney disease Chronic kidney disease stage: on chronic dialysis (3) Obstructive sleep apnea Status: Chronic Assessment and plan: Patient has obstructive sleep apnea and is currently on BiPAP. Pulmonary is following and assisting. Current Visit: Yes (4) DVT (deep venous thrombosis) Status: Acute Assessment and plan: Patient has right upper extremity DVT and is on Lovenox therapy. Current Visit: Yes (5) End stage renal disease Status: Chronic Assessment and plan: Patient has end-stage renal disease on hemodialysis. Nephrology is following and assisting. Current Visit: No (6) Hypertension Status: Chronic Assessment and plan: Patient has chronic essential hypertension and is currently normotensive. Continue current medical regimen. Current Visit: Yes Qualifiers: Hypertension type: essential hypertension Qualified Code(s): I10 - Essential (primary) hypertension Hospitalist: Subjective Interval history: Patient is bed eating and has no complaints of chest pain or shortness of breath today. He seems to be tolerating BiPAP and doing better. Exam - Constitutional Vitals: Period Temp Pulse Resp BP Sys/Weldon Pulse Ox Last 24 Hr 97.2 F-98.7 F 69-79 12-20 112-151/55-82 92-100 General appearance: no acute distress - Head Head exam: Present: normocephalic, atraumatic - Eye Eye exam: Present: EOMI Pupils: Present: DINESH - Expanded ENT Exam Mouth exam: Present: moist Teeth exam: Present: other (Poor dental hygiene) - Respiratory Respiratory exam: Present: clear to auscultation bilaterally - Cardiovascular Cardiovascular exam: Present: regular rate and rhythm - GI/Abdominal GI/Abdominal exam: Present: normal bowel sounds, soft. Absent: rebound - Extremities Exam Extremities exam: Absent: calf tenderness, edema - Back Exam Back exam: Present: normal inspection - Neurological Exam Neurological exam: Present: alert, oriented X3, CN II-XII intact. Absent: motor sensory deficit - Psychiatric Psychiatric exam: Present: normal affect, normal mood. Absent: agitated, anxious - Skin Skin exam: Present: warm, dry. Absent: erythema Results - Labs CBC & BMP: 06/28/16 04:50 06/25/16 08:01 Lab Results: I have reviewed the past 24 hour labs Quality Measures - VTE Contraindication to Pharmacological VTE Prophylaxis: High Risk of Bleeding - Stroke Symptom Onset Unknown: No - AMI Contraindication to ACEI/ARB: other (ESRD) Contraindications to ASA on arrival: other (Given at HD prior to arrival)
[2016-06-28] MEDS: ENOXAPARIN 100 MG/ML SYRINGE SUBCUT SCH (11:07)
--- NOTE | 2016-06-28 13:09 | Nephrology Progress Note ---
Nephrology - PN: Subj Interval history: In good spirits. Denies SOB/pain. Tolerated routine CHD yesterday without complications. Exam (PN)-Nephrology - Vital Signs Vital signs: Period Temp Pulse Resp BP Sys/Weldon Pulse Ox Last 24 Hr 97.2 F-98.7 F 69-79 18-20 108-151/56-82 92-100 - General Appearance General appearance: well-developed, obese EENT: ATNC, PERRL, mucous membranes dry, hearing intact, vision intact Neck: no JVD, no thyromegaly Respiratory: no kyphosis, clear Cardiology: no murmurs, no rub, no edema Gastrointestinal: normoactive bowel sounds, no tenderness, no guarding Neurologic: no focal deficit, no asterixis, alert and oriented x3 Musculoskeletal: no deformities, no erythema Psychiatric: mood/affect appropriate, cooperative - Lab 06/28/16 04:50 06/25/16 08:01 Most recent lab results ABG pH 7.238 (7.35-7.45) L 06/22/16 14:05 ABG pCO2 62.5 MM HG (35-48) H 06/22/16 14:05 ABG pO2 151.0 MM HG (80-95) H 06/22/16 14:05 ABG HCO3 23.0 MMOL/L (20-26) 06/22/16 14:05 ABG O2 Saturation 99.3 % (95-100) 06/22/16 14:05 Calcium 7.5 MG/DL (8.5-10.1) L 06/25/16 08:01 Assessment and Plan (1) End stage renal disease on dialysis Problem details: No acute indication for HD at this time. Status: Acute Assessment and plan: Routine CHD Wednesday if still in house. UF to EDW as tolerated by hemodynamics. Current Visit: No
[2016-06-28] MEDS: ATORVASTATIN 40 MG TABLET PO SCH (21:03)
[2016-06-29 07:05] LABS: Basophils # 0.1 10*3/uL (0.0-0.2); Basophils % 0.5 % (0.0-0.8); Eosinophils # 0.3 10*3/uL (0.0-0.87); Hematocrit 26.2 VOL% (42.0-52.0); Hemoglobin 8.2 GM/DL (14.0-18.0); Immature Granulocytes % 0.4 %; Immature Granulocytes Absolute 0.04 #; Lymphocytes # 1.6 10*3/uL (1.4-4.0); Lymphocytes % 14.9 % (21.2-54.2); Mean Corpuscular HGB Conc 31.3 GM/DL (32-36); Mean Corpuscular Hemoglobin 29 PG (27-34); Mean Corpuscular Volume 92.3 FL (87-102); Mean Platelet Volume 11.6 FL (9.6-12.0); Monocytes # 1.3 10*3/uL (0.11-0.8); Monocytes % 11.9 % (1.7-12.7); Neutrophils # 7.6 10*3/uL (1.4-7.4); Neutrophils % 69.3 % (38.7-73.9); Platelet Count 237 T/CUMM (130-400); Red Blood Count 2.84 MC/CUMM (3.8-5.5); Red Cell Distribution Width 17.6 % (9.3-17.3)
[2016-06-29 07:26] LABS: Albumin 3.1 G/DL (3.4-5.0); Calcium 7.2 MG/DL (8.5-10.1); Osmolality,Calculated 280.1 MOS/KG (273-304); Phosphorous 5.4 MG/DL (2.5-4.9); Potassium 5.3 MMOL/L (3.5-5.1)
--- NOTE | 2016-06-29 08:46 | Pulmonology Progress Note ---
Pulmonary - PN: Subj Interval history: This 65-year-old man and congestive heart failure and has end-stage renal disease. He also has obstructive sleep apnea and I suspect obesity hypoventilation syndrome. He was quite lethargic but is now much more alert. He still continues to take his facemask BiPAP off during the night. He is due for dialysis today. He is not having any fever. 06/24/2016 patient is more alert. He seems to be resistant to using his BiPAP at night. Being evaluated by sleep services. 06/25/2016 patient to have cardiac catheterization. I would recommend general anesthesia for it. Sedation would be difficult to manage with his obesity hypoventilation, chronic hypercarbia. 06/26/2016 patient less dyspneic. When I rounded this morning he was asleep and not wearing his BiPAP or oxygen. I discussed with him once again the need to use the BiPAP overnight. He is for cardiac catheterization today. He should be under general anesthesia for it with his airway controlled. 06/29/2016 patient seems to be better. He was wearing his BiPAP when I entered the room. Dr. Chamorro is addressing getting him a set up at home. Lungs sound clear. Cardiac catheterization showed severe multivessel disease and it was felt best that he have medical management. Should be ready for discharge. Exam (Progress Note) - Constitutional Vitals: Period Temp Pulse Resp BP Sys/Weldon Pulse Ox Last 24 Hr 97.0 F-99.1 F 58-75 18-21 108-159/56-72 96-100 Exam: Patient is alert and responsive. Vital signs normal. Pupils react to light. Throat is clear. Neck supple no bruits. Chest reveals a few basilar crackles. Heart normal rate rhythm no murmurs. Abdomen soft obese unable to palpate abdominal organs. Extremities no clubbing or cyanosis he has trace of pitting edema in both legs in the right arm. Results - Labs CBC & BMP: 06/29/16 06:54 06/29/16 06:54 Lab Results: I have reviewed the past 24 hour labs Assessment and Plan (1) Obstructive sleep apnea Status: Chronic Assessment and plan: Patient has not been using his CPAP regularly at night. I do not know the details of this diagnosis. 06/23/2016 seems much more alert now than he is using his BiPAP at night. 06/24/2016 important that he get set up to use CPAP or BiPAP at home post discharge. This is being addressed. 06/25/2016 and appears that he is using his BiPAP at night. When it does come off during the night he is pretty lethargic. 06/26/2016 there is a problem with compliance here. Dr. Chamorro is following from sleep services. Hopefully we can get him using his BiPAP or noninvasive facemask mechanical ventilation at night post discharge. 06/29/2016 sleep services working on getting him equipment at home Current Visit: Yes (2) Obesity hypoventilation syndrome Status: Acute Assessment and plan: I suspect he has obesity hypoventilation syndrome that was aggravated by preop for his cardiac catheterization. Agree with using BiPAP and allowing medication to get out of his system. If he still needs a catheterization would either use general anesthesia or minimal sedation. 06/23/2016 PCO2 elevated. 06/24/2016 has elevated PCO2 while awake. In his situation this is due to obesity hypoventilation syndrome. 06/25/2016 chronic ventilatory failure. Needs control of airway when he sedated for procedures such as cardiac catheterization. Would recommend general anesthesia for that. 06/26/2016 because of his severe obesity hypoventilation syndrome, he will need intubation and mechanical ventilation Simons cath. I do not think adequate sedation can be safely obtained for the procedure without intubation 06/29/2016 patient did well with his cardiac catheterization. Current Visit: Yes (3) Chest pain Status: Acute Assessment and plan: Denies chest pain at present. 06/25/2016 to have cardiac evaluation for his chest pain. 06/26/2016 defer to cardiology. 06/29/2016 no further chest pain. He has multivessel coronary disease. Current Visit: Yes (4) Decreased hearing Status: Acute Assessment and plan: Etiology of this is not clear 06/23/2016 ENT is evaluating. 06/24/2016 seems to hear me very well this morning. 06/29/2016 this apparently has improved markedly. Current Visit: Yes (5) End stage renal disease Status: Chronic Assessment and plan: He is due for dialysis later today or tomorrow. 06/23/2016 for dialysis today. 06/24/2016 had dialysis yesterday. 06/25/2016 to have dialysis prior to a heart cath. 06/26/2016 had dialysis yesterday. 06/29/2016 continuing Wednesday dialysis Current Visit: No (6) Ischemic cardiomyopathy Status: Chronic Assessment and plan: No signs of active congestive heart failure. 06/23/2016 defer to cardiology. Current Visit: No Specialty Discharge - Follow Up or Referrals
[2016-06-29] MEDS: PANTOPRAZOLE 40 MG TABLET PO SCH (09:06)
[2016-06-29] MEDS: ASPIRIN EC 81 MG TABLET PO SCH (09:06)
[2016-06-29] MEDS: CLOPIDOGREL 75 MG TABLET PO SCH (09:06)
[2016-06-29] MEDS: METOPROLOL TARTRATE 25 MG TABLET PO SCH ×2 (09:06→22:14)
[2016-06-29] MEDS ORDERED: MAGNESIUM HYDROXIDE SUSP 30 ML UDCUP PO PRN (11:56)
[2016-06-29] MEDS ORDERED: POLYETHYLENE GLYCOL POWDER 17 GM PACK PO PRN (11:57)
[2016-06-29] MEDS: ENOXAPARIN 100 MG/ML SYRINGE SUBCUT SCH (12:14)
--- NOTE | 2016-06-29 13:57 | Hospitalist Progress Note ---
Assessment and Plan (1) DVT (deep venous thrombosis) Status: Acute Assessment and plan: The patient has deep vein thrombosis of the right upper extremity. He is on therapeutic dose Lovenox at present. We will start Coumadin and discontinue Lovenox once INR is therapeutic. Current Visit: Yes Qualifiers: DVT location: upper extremity Laterality: right Chronicity: acute (2) End stage renal disease Status: Chronic Current Visit: No (3) End stage renal disease on dialysis Problem details: No acute indication for HD at this time. Status: Acute Current Visit: No (4) Obesity hypoventilation syndrome Status: Acute Current Visit: Yes Hospitalist: Subjective Interval history: The patient is admitted to the hospital with chest discomfort. He had coronary arteriogram on Wednesday but no interventions were required. The patient has been found to have deep vein thrombosis of the right upper extremity and been on therapeutic dose of Lovenox. Today we will start Coumadin Exam - Constitutional Vitals: Period Temp Pulse Resp BP Sys/Weldon Pulse Ox Last 24 Hr 97.0 F-99.1 F 58-75 18-21 126-159/65-72 92-100 Exam: Constitutional System: No distress. No tremulousness. Sitting up in chair Head: Normocephalic, atraumatic. Ears, Nose and Throat System: No evidence of Otitis or Mastoiditis. No epistaxis or discharge Eyes System: Pupils equal, round, and reactive. Extraocular muscles intact. Neck: Supple, without adenopathy, No jugular venous distention. No thyromegaly , neck mass, or prior surgery apparent. Respiratory System: Chest clear to auscultation. Cardiovascular System: Heart with regular rate and rhythm. No murmur. GI System: Abdomen soft, nontender. Normo active bowel sounds present. Musculoskeletal System: limbs with dialysis fistula in right upper arm. The arm has some swelling and ultrasound reveals deep vein thrombosis - Expanded ENT Exam Mouth exam: Present: moist Teeth exam: Present: other (Poor dental hygiene) Results - Labs CBC & BMP: 06/29/16 06:54 06/29/16 06:54 Lab Results: I have reviewed the past 24 hour labs Quality Measures - VTE Contraindication to Pharmacological VTE Prophylaxis: High Risk of Bleeding - Stroke Symptom Onset Unknown: No - AMI Contraindication to ACEI/ARB: other (ESRD) Contraindications to ASA on arrival: other (Given at HD prior to arrival) Specialty Discharge - Follow Up or Referrals
[2016-06-29 14:51] LABS: PT Patient Result 10.8 SECS
--- NOTE | 2016-06-29 16:07 | Cardiology Progress Note ---
Floyd Malave Vanessa, RN, am scribing for, and in the presence of, Joo Damon MD 16 :07. Assessment and Plan - Time spent with patient Time spent with patient: Greater than 30 minutes (1) Unstable angina Status: Acute Assessment and plan: 65 year old male with PMHx CAD and CABG, ICM, chronic systolic and diastolic CHF , HTN, IDDM, HLD, TIA, ESRD with HD. Now admitted with UA, hypotension, anemia, and marginally elevated troponins. 1. UA- LHC 06/26 with severe [place] multivessel CAD with diffuse severe distal disease of the LAD, 3 of 3 grafts patents with moderate disease of RCA graft for continued medical therapy and risk factor modification. EF 55-60%. Cont medical management. ASA, BB, statin 2. If CP recurs, may add Imdur 3. JOSE LUIS/obesity hypoventilation syndrome- Evaluation by sleep medicine and pulmonology during admission. BiPap in place. Being evaluated for home machine after discharge home. 4. HTN-Controlled at this time. Continue current regimen. 5. ESRD-Hemodialysis managed by nephrology. 6. DVT- RUE. Continue coumadin with renally adjusted LMWH bridging. Monitor INR Current Visit: Yes (2) Coronary artery disease Status: Chronic Current Visit: Yes Qualifiers: Coronary Disease-Associated Artery/Lesion type: [place] artery [place] vs. transplanted heart: tanana heart Associated angina: with unstable angina Qualified Code(s): I25.110 - Atherosclerotic heart disease of tan[place] coronary artery with unstable angina pectoris (3) Hyperkalemia Status: Acute Current Visit: Yes (4) Obesity hypoventilation syndrome Status: Acute Current Visit: Yes (5) Obstructive sleep apnea Status: Chronic Current Visit: Yes (6) Anemia, chronic disease Status: Chronic Current Visit: Yes (7) End stage renal disease Status: Chronic Current Visit: Yes (8) Dyslipidemia Status: Chronic Current Visit: Yes (9) Hx of CABG Status: Chronic Current Visit: No (10) Hypertension Status: Chronic Assessment and plan: Continue current medication regimen. Current Visit: Yes Qualifiers: Hypertension type: essential hypertension Qualified Code(s): I10 - Essential (primary) hypertension (11) Ischemic cardiomyopathy Status: Chronic Current Visit: No Cardiology - PN: Subj Interval history: No acute distress, resting quietly in bed. No CP, SOB. Afebrile, vitals stable. SR on telemetry Exam (Progress Note) - Constitutional Vitals: Period Temp Pulse Resp BP Sys/Weldon Pulse Ox Last 24 Hr 97.0 F-99.1 F 58-75 18-21 126-159/65-72 96-100 Exam: General appearance: over weight, no acute distress - Head Head exam: Absent: abrasion, laceration, hematoma - ENT ENT exam: Present: other (Poor dentition). Normal external ear exam - Neck Neck exam: Present: normal inspection. Absent: tenderness - Respiratory Respiratory exam: Present: minimal bibasilar crackles. Absent: stridor, wheeze, accessory muscle use - Cardiovascular Cardiovascular exam: Present: regular rate and rhythm. Absent: bradycardia, tachycardia, irregular rhythm, murmur. Other (unable to assess for JVD due to habitus) - GI/Abdominal GI/Abdominal exam: Present: normal bowel sounds, soft, nontender. Absent: firm, distended, masses. Other (obese) - Extremities Exam Extremities exam: Present: warm, dry. Absent: bruising, calf tenderness, LE edema - Neurological Exam Neurological exam: Present: awake, alert. Absent: agitated, anxious - Psychiatric Psychiatric exam: Present: appropriate, coherent - Skin Skin exam: Present: normal color, warm. Absent: diaphoresis, cyanosis Result/EKG - Labs CBC & BMP: 06/29/16 06:54 06/29/16 06:54 Lab Results: I have reviewed the past 24 hour labs Labs: Laboratory Results - last 24 hr 06/28/16 06/28/16 06/29/16 16:01 19:50 06:54 WBC 11.0 RBC 2.84 L Hgb 8.2 L Hct 26.2 L MCV 92.3 MCH 29 MCHC 31.3 L RDW 17.6 H Plt Count 237 MPV 11.6 Neut % (Auto) 69.3 Lymph % (Auto) 14.9 L Fisher % (Auto) 11.9 Eos % (Auto) 3.0 Baso % (Auto) 0.5 Neut # (Auto) 7.6 H Lymph # (Auto) 1.6 Fisher # (Auto) 1.3 H Eos # (Auto) 0.3 Baso # (Auto) 0.1 Immature Gran % 0.4 Nucleated RBC % 0.0 Immature Gran # 0.04 Nucleated RBCs # 0.00 Sodium Potassium Chloride Carbon Dioxide Anion Gap BUN Creatinine GFR Calculation BUN/Creatinine Ratio Glucose POC Glucose 138 H 136 H Calculated Osmolality Calcium Phosphorus Albumin 06/29/16 06/29/16 06/29/16 06:54 07:40 11:26 WBC RBC Hgb Hct MCV MCH MCHC RDW Plt Count MPV Neut % (Auto) Lymph % (Auto) Fisher % (Auto) Eos % (Auto) Baso % (Auto) Neut # (Auto) Lymph # (Auto) Fisher # (Auto) Eos # (Auto) Baso # (Auto) Immature Gran % Nucleated RBC % Immature Gran # Nucleated RBCs # Sodium 135 L Potassium 5.3 H Chloride 101 Carbon Dioxide 22 Anion Gap 17.3 H BUN 42 H Creatinine 10.00 H GFR Calculation 7 BUN/Creatinine Ratio 4.00 L Glucose 104 POC Glucose 196 H 155 H Calculated Osmolality 280.1 Calcium 7.2 L Phosphorus 5.4 H Albumin 3.1 L - EKG EKG results: interpreted by me, no acute changes EKG shows: sinus rhythm Quality Measures - VTE Contraindication to Pharmacological VTE Prophylaxis: High Risk of Bleeding - Stroke Symptom Onset Unknown: No - AMI Contraindication to ACEI/ARB: other (ESRD) Contraindications to ASA on arrival: other (Given at HD prior to arrival) Specialty Discharge - Follow Up or Referrals Nelson Malave Attila, MD, personally performed the services described in this documentation, ascribed by Zahraa Barrientos RN in my presence, and it is both accurate and complete [phone] .
[2016-06-29] MEDS ORDERED: WARFARIN 5 MG TABLET ONE (17:43)
[2016-06-29] MEDS: WARFARIN 10 MG TABLET PO SCH (17:50)
--- NOTE | 2016-06-29 19:34 | Nephrology Progress Note ---
Nephrology - PN: Subj Interval history: The patient is resting. No shortness of breath or chest pain. Found to have a DVT in the upper right upper extremity. Starting Coumadin therapy. Hemodynamics are stable. Exam (PN)-Nephrology - Vital Signs Vital signs: Period Temp Pulse Resp BP Sys/Weldon Pulse Ox Last 24 Hr 97.0 F-99.1 F 58-75 18-21 126-159/66-72 92-100 - General Appearance General appearance: well-developed, well-nourished EENT: ATNC Neck: supple Respiratory: clear Cardiology: no edema, regular rate, regular rhythm Gastrointestinal: normoactive bowel sounds, no tenderness Neurologic: alert and oriented x3, CN 3-12 intact - Lab 06/29/16 06:54 06/29/16 06:54 Most recent lab results ABG pH 7.238 (7.35-7.45) L 06/22/16 14:05 ABG pCO2 62.5 MM HG (35-48) H 06/22/16 14:05 ABG pO2 151.0 MM HG (80-95) H 06/22/16 14:05 ABG HCO3 23.0 MMOL/L (20-26) 06/22/16 14:05 ABG O2 Saturation 99.3 % (95-100) 06/22/16 14:05 Calcium 7.2 MG/DL (8.5-10.1) L 06/29/16 06:54 Phosphorus 5.4 MG/DL (2.5-4.9) H 06/29/16 06:54 Assessment and Plan (1) Chest pain Status: Acute Assessment and plan: The patient has a history of cardiac disease. Appreciate input from cardiology. Current Visit: No (2) End stage renal disease Status: Chronic Assessment and plan: Continue with scheduled hemodialysis. Current Visit: No (3) Hypertension Status: Chronic Current Visit: Yes Qualifiers: Hypertension type: essential hypertension Qualified Code(s): I10 - Essential (primary) hypertension (4) Diabetes mellitus Status: Chronic Current Visit: No Qualifiers: Diabetes mellitus type: type 2 Diabetes mellitus complication detail: with chronic kidney disease Chronic kidney disease stage: on chronic dialysis (5) Secondary hyperparathyroidism Status: Chronic Current Visit: No (6) Dyslipidemia Status: Chronic Current Visit: Yes (7) Ischemic cardiomyopathy Status: Chronic Current Visit: No (8) Hx of CABG Status: Chronic Current Visit: No (9) Decreased hearing Status: Acute Current Visit: Yes (10) Decreased hearing of both ears Status: Acute Assessment and plan: Has been evaluated by ENT Current Visit: Yes Specialty Discharge - Follow Up or Referrals
[2016-06-29] MEDS: ATORVASTATIN 40 MG TABLET PO SCH (22:14)
--- NOTE | 2016-06-30 08:13 | Pulmonology Progress Note ---
Pulmonary - PN: Subj Interval history: This 65-year-old man and congestive heart failure and has end-stage renal disease. He also has obstructive sleep apnea and I suspect obesity hypoventilation syndrome. He was quite lethargic but is now much more alert. He still continues to take his facemask BiPAP off during the night. He is due for dialysis today. He is not having any fever. 06/24/2016 patient is more alert. He seems to be resistant to using his BiPAP at night. Being evaluated by sleep services. 06/25/2016 patient to have cardiac catheterization. I would recommend general anesthesia for it. Sedation would be difficult to manage with his obesity hypoventilation, chronic hypercarbia. 06/26/2016 patient less dyspneic. When I rounded this morning he was asleep and not wearing his BiPAP or oxygen. I discussed with him once again the need to use the BiPAP overnight. He is for cardiac catheterization today. He should be under general anesthesia for it with his airway controlled. 06/29/2016 patient seems to be better. He was wearing his BiPAP when I entered the room. Dr. Chamorro is addressing getting him a set up at home. Lungs sound clear. Cardiac catheterization showed severe multivessel disease and it was felt best that he have medical management. Should be ready for discharge. 06/30/2016 patient is improved. Arrangements being made for BiPAP post discharge. Exam (Progress Note) - Constitutional Vitals: Period Temp Pulse Resp BP Sys/Weldon Pulse Ox Last 24 Hr 96.1 F-98.8 F 67-76 16-20 126-147/66-71 92-98 Exam: Patient is alert and responsive. Vital signs normal. Pupils react to light. Throat is clear. Neck supple no bruits. Chest reveals a few basilar crackles. Heart normal rate rhythm no murmurs. Abdomen soft obese unable to palpate abdominal organs. Extremities no clubbing or cyanosis he has trace of pitting edema in both legs in the right arm. Little change from yesterday. Results - Labs CBC & BMP: 06/29/16 06:54 06/29/16 06:54 Lab Results: I have reviewed the past 24 hour labs Assessment and Plan (1) Obstructive sleep apnea Status: Chronic Assessment and plan: Patient has not been using his CPAP regularly at night. I do not know the details of this diagnosis. 06/23/2016 seems much more alert now than he is using his BiPAP at night. 06/24/2016 important that he get set up to use CPAP or BiPAP at home post discharge. This is being addressed. 06/25/2016 and appears that he is using his BiPAP at night. When it does come off during the night he is pretty lethargic. 06/26/2016 there is a problem with compliance here. Dr. Chamorro is following from sleep services. Hopefully we can get him using his BiPAP or noninvasive facemask mechanical ventilation at night post discharge. 06/29/2016 sleep services working on getting him equipment at home 06/30/[address] Valadez. BiPAP being arranged at home. Current Visit: Yes (2) Obesity hypoventilation syndrome Status: Acute Assessment and plan: I suspect he has obesity hypoventilation syndrome that was aggravated by preop for his cardiac catheterization. Agree with using BiPAP and allowing medication to get out of his system. If he still needs a catheterization would either use general anesthesia or minimal sedation. 06/23/2016 PCO2 elevated. 06/24/2016 has elevated PCO2 while awake. In his situation this is due to obesity hypoventilation syndrome. 06/25/2016 chronic ventilatory failure. Needs control of airway when he sedated for procedures such as cardiac catheterization. Would recommend general anesthesia for that. 06/26/2016 because of his severe obesity hypoventilation syndrome, he will need intubation and mechanical ventilation Simons cath. I do not think adequate sedation can be safely obtained for the procedure without intubation 06/29/2016 patient did well with his cardiac catheterization. 06/30/2016 the BiPAP will help obesity hypoventilation syndrome as well. Current Visit: Yes (3) Chest pain Status: Acute Assessment and plan: Denies chest pain at present. 06/25/2016 to have cardiac evaluation for his chest pain. 06/26/2016 defer to cardiology. 06/29/2016 no further chest pain. He has multivessel coronary disease. Current Visit: Yes (4) Decreased hearing Status: Acute Assessment and plan: Etiology of this is not clear 06/23/2016 ENT is evaluating. 06/24/2016 seems to hear me very well this morning. 06/29/2016 this apparently has improved markedly. Current Visit: Yes (5) End stage renal disease Status: Chronic Assessment and plan: He is due for dialysis later today or tomorrow. 06/23/2016 for dialysis today. 06/24/2016 had dialysis yesterday. 06/25/2016 to have dialysis prior to a heart cath. 06/26/2016 had dialysis yesterday. 06/29/2016 continuing Wednesday dialysis 06/30/2016 for dialysis today. Current Visit: No (6) Ischemic cardiomyopathy Status: Chronic Assessment and plan: No signs of active congestive heart failure. 06/23/2016 defer to cardiology. Current Visit: No Specialty Discharge - Follow Up or Referrals
--- NOTE | 2016-06-30 08:52 | Nephrology Progress Note ---
Nephrology - PN: Subj Interval history: Patient is resting comfortably no acute changes. He is sitting up in chair continues to do good. Eager to go home. Continue to encourage patient to use his BiPAP. Exam (PN)-Nephrology - Vital Signs Vital signs: Period Temp Pulse Resp BP Sys/Weldon Pulse Ox Last 24 Hr 96.1 F-98.8 F 67-76 16-20 126-147/66-71 92-98 - General Appearance General appearance: well-developed, well-nourished EENT: ATNC Neck: supple Respiratory: clear Cardiology: regular rate, regular rhythm Gastrointestinal: normoactive bowel sounds, no tenderness Neurologic: alert and oriented x3, CN 3-12 intact Musculoskeletal: no clubbing Psychiatric: mood/affect appropriate - Lab 06/29/16 06:54 06/29/16 06:54 Most recent lab results ABG pH 7.238 (7.35-7.45) L 06/22/16 14:05 ABG pCO2 62.5 MM HG (35-48) H 06/22/16 14:05 ABG pO2 151.0 MM HG (80-95) H 06/22/16 14:05 ABG HCO3 23.0 MMOL/L (20-26) 06/22/16 14:05 ABG O2 Saturation 99.3 % (95-100) 06/22/16 14:05 Calcium 7.2 MG/DL (8.5-10.1) L 06/29/16 06:54 Phosphorus 5.4 MG/DL (2.5-4.9) H 06/29/16 06:54 Assessment and Plan (1) Chest pain Status: Acute Assessment and plan: The patient has a history of cardiac disease. Appreciate input from cardiology. Current Visit: No (2) End stage renal disease Status: Chronic Assessment and plan: Continue with scheduled hemodialysis. Current Visit: No (3) Hypertension Status: Chronic Current Visit: Yes Qualifiers: Hypertension type: essential hypertension Qualified Code(s): I10 - Essential (primary) hypertension (4) Diabetes mellitus Status: Chronic Current Visit: No Qualifiers: Diabetes mellitus type: type 2 Diabetes mellitus complication detail: with chronic kidney disease Chronic kidney disease stage: on chronic dialysis (5) Secondary hyperparathyroidism Status: Chronic Current Visit: No (6) Dyslipidemia Status: Chronic Current Visit: Yes (7) Ischemic cardiomyopathy Status: Chronic Current Visit: No (8) Hx of CABG Status: Chronic Current Visit: No (9) Decreased hearing Status: Acute Current Visit: Yes (10) Decreased hearing of both ears Status: Acute Assessment and plan: Has been evaluated by ENT Current Visit: Yes Specialty Discharge - Follow Up or Referrals
[2016-06-30 09:04] LABS: PT Patient Result 10.8 SECS
[2016-06-30] MEDS: PANTOPRAZOLE 40 MG TABLET PO SCH (09:20)
[2016-06-30] MEDS: METOPROLOL TARTRATE 25 MG TABLET PO SCH ×2 (09:20→21:16)
[2016-06-30] MEDS: ASPIRIN EC 81 MG TABLET PO SCH (09:20)
[2016-06-30] MEDS: CLOPIDOGREL 75 MG TABLET PO SCH (09:20)
[2016-06-30 09:26] LABS: Albumin 3.5 G/DL (3.4-5.0); Calcium 7.8 MG/DL (8.5-10.1); Osmolality,Calculated 278.4 MOS/KG (273-304); Phosphorous 4.4 MG/DL (2.5-4.9); Potassium 4.5 MMOL/L (3.5-5.1)
[2016-06-30] MEDS: ENOXAPARIN 100 MG/ML SYRINGE SUBCUT SCH (12:07)
--- NOTE | 2016-06-30 13:31 | Sleep Medicine Progress Note ---
Assessment and Plan (1) Obstructive sleep apnea Status: Chronic Assessment and plan: Current BiPAP therapy is less than ideal but may be related to mask leak. His compliance with therapy has improved and he is sleeping with it longer on a nightly basis. This is certainly encouraging. He will need formal titration in the sleep lab. Current Visit: Yes (2) Hypertension Status: Chronic Current Visit: Yes Qualifiers: Hypertension type: essential hypertension Qualified Code(s): I10 - Essential (primary) hypertension (3) Coronary artery disease Status: Chronic Current Visit: No Sleep Medicine Subjective Interval history: Patient seems to be doing well and approaching discharge status soon. Since 331 , he is averaged 7 hours and 38 minutes in night with his auto titration BiPAP. He averaged 8 hours and 47 minutes last night. Pressure settings seem to be about 14/9 on average with auto titration BiPAP but control was poor, with an average AHI of 26.8. Much of this may be related to a large air leak. We will need to recheck his mask fit. He is going to need formal titration in the sleep lab to best prescribed therapy and we will have outpatient sleep study with titration set up for soon after discharge. Exam (Progress Note) - Constitutional Vitals: Period Temp Pulse Resp BP Sys/Weldon Pulse Ox Last 24 Hr 96.1 F-98.8 F 68-76 16-20 126-145/66-71 95-98 Exam: He is alert and responsive in no acute distress. Chest with fair air movement no focal wheeze or rhonchi. Cardiac exam reveals a regular rhythm without murmur or gallop. Abdomen soft nontender without palpable hepatosplenomegaly or mass. Extremities are without clubbing, cyanosis, or edema. Results - Labs CBC & BMP: 06/29/16 06:54 06/30/16 08:45 Lab Results: I have reviewed the past 24 hour labs Specialty Discharge - Follow Up or Referrals
[2016-06-30] MEDS ORDERED: ENOXAPARIN 100 MG/ML SYRINGE SUBCUT SCH (14:32)
--- NOTE | 2016-06-30 14:34 | Hospitalist Progress Note ---
Assessment and Plan (1) DVT (deep venous thrombosis) Status: Acute Assessment and plan: The patient has deep vein thrombosis of the right upper extremity. He is on therapeutic dose Lovenox at present. We will s continue Coumadin and discontinue Lovenox once INR is therapeutic. Current Visit: Yes Qualifiers: DVT location: upper extremity Laterality: right Chronicity: acute (2) End stage renal disease Status: Chronic Current Visit: No (3) End stage renal disease on dialysis Problem details: No acute indication for HD at this time. Status: Acute Current Visit: No (4) Obesity hypoventilation syndrome Status: Acute Current Visit: Yes Hospitalist: Subjective Interval history: Mr. Pena is having dialysis at present. I examined him during dialysis treatment. The patient does not complain of shortness of breath or angina. Exam - Constitutional Vitals: Period Temp Pulse Resp BP Sys/Weldon Pulse Ox Last 24 Hr 96.1 F-98.8 F 68-76 16-20 126-145/66-71 95-98 Exam: Constitutional System: No distress. No tremulousness. Resting in bed on dialysis Head: Normocephalic, atraumatic. Ears, Nose and Throat System: No evidence of Otitis or Mastoiditis. No epistaxis or discharge Eyes System: Pupils equal, round, and reactive. Extraocular muscles intact. Neck: Supple, without adenopathy, No jugular venous distention. No thyromegaly , neck mass, or prior surgery apparent. Respiratory System: Chest clear to auscultation. Cardiovascular System: Heart with regular rate and rhythm. No murmur. GI System: Abdomen soft, nontender. Normo active bowel sounds present. Musculoskeletal System: limbs with dialysis fistula in right upper arm. The arm has some swelling and ultrasound reveals deep vein thrombosis - Expanded ENT Exam Mouth exam: Present: moist Teeth exam: Present: other (Poor dental hygiene) Results - Labs CBC & BMP: 06/29/16 06:54 06/30/16 08:45 Lab Results: I have reviewed the past 24 hour labs Labs: INR equals 1.0 Quality Measures - VTE Contraindication to Pharmacological VTE Prophylaxis: High Risk of Bleeding - Stroke Symptom Onset Unknown: No - AMI Contraindication to ACEI/ARB: other (ESRD) Contraindications to ASA on arrival: other (Given at HD prior to arrival) Specialty Discharge - Follow Up or Referrals
[2016-06-30] MEDS ORDERED: WARFARIN 5 MG TABLET ONE (15:12)
[2016-06-30] MEDS ORDERED: LIDOCAINE MPF 2% /EPI 20 ML VIAL MISC INJ ONE (17:14)
--- NOTE | 2016-06-30 17:21 | Cardiology Progress Note ---
I, Zahraa Barrientos RN, am scribing for, and in the presence of, Joo Damon MD 17 :16. Assessment and Plan - Time spent with patient Time spent with patient: Greater than 30 minutes (1) Unstable angina Status: Acute Assessment and plan: 65 year old male with PMHx CAD and CABG, ICMO with EF , chronic systolic and diastolic CHF, HTN, IDDM, HLD, TIA, ESRD with HD. Now admitted with USA, hypotension, anemia, and marginally elevated troponins. Most recent cardiac cath in 2014 and had severe triple vessel disease with patent grafts to the right coronary, circumflex, and to the LAD. 1. UA- LHC 06/26 with severe [place] multivessel CAD with diffuse severe distal disease of the LAD, 3 of 3 grafts patents with moderate disease of RCA graft for continued medical therapy and risk factor modification. EF 55-60%. Continue medical management 2. Anemia. Hematocrit was trending down and he has guaiac positive stools, also continued bleeding from a pulled IV site since a.m., despite pressure dressing. I am going to inject epi/lido around this site and reapply pressure dressing. Chech CBC in AM. 3. He has worsening anemia, with susp. ongoing bleeding. I am going to stop the Lovenox. He has severe, diffuse CAD, I would continue dual antiplatelet therapy, unless life-threatening bleeding is an issue. Although he has a left upper extremity DVT, he may not be able to tolerate Coumadin on top of the wall antiplatelets. INR was subtherapeutic so far. 4. Consider GI eval 5 HTN-Well controlled Current Visit: Yes (2) Coronary artery disease Status: Chronic Current Visit: Yes Qualifiers: Coronary Disease-Associated Artery/Lesion type: [place] artery [place] vs. transplanted heart: [place] heart Associated angina: with unstable angina Qualified Code(s): I25.110 - Atherosclerotic heart disease of [place] coronary artery with unstable angina pectoris (3) Hyperkalemia Status: Acute Current Visit: Yes (4) Obesity hypoventilation syndrome Status: Acute Current Visit: Yes (5) Obstructive sleep apnea Status: Chronic Assessment and plan: Per reports, he is noncompliant with CPAP. He is currently using BiPAP without difficulty. Pulmonology, Dr. Hartmann, is following. Current Visit: Yes (6) Anemia, chronic disease Status: Chronic Current Visit: Yes (7) End stage renal disease Status: Chronic Assessment and plan: Hemodialysis routinely. Managed per nephrology. Current Visit: Yes (8) Dyslipidemia Status: Chronic Current Visit: Yes (9) Hx of CABG Status: Chronic Current Visit: No (10) Hypertension Status: Chronic Assessment and plan: Continue current medication regimen. Current Visit: Yes Qualifiers: Hypertension type: essential hypertension Qualified Code(s): I10 - Essential (primary) hypertension (11) Ischemic cardiomyopathy Status: Chronic Current Visit: No Cardiology - PN: Subj Interval history: Tele review shows brief bigeminy overnight while asleep. He had an IV pulled from his left shoulder around 12 hours ago, he kept oozing from it despite pressure dressing. He is feeling fine. Stool guaiac is positive. Exam (Progress Note) - Constitutional Vitals: Period Temp Pulse Resp BP Sys/Weldon Pulse Ox Last 24 Hr 96.1 F-98.8 F 68-76 16-20 126-145/66-71 95-98 Exam: General appearance: over weight, no acute distress - Head Head exam: Absent: abrasion, laceration, hematoma - ENT ENT exam: Present: other (Poor dentition). Normal external ear exam - Neck Neck exam: Present: normal inspection. Absent: tenderness - Respiratory Respiratory exam: Present: minimal bibasilar crackles. Absent: stridor, wheeze, accessory muscle use - Cardiovascular Cardiovascular exam: Present: regular rate and rhythm. Absent: bradycardia, tachycardia, irregular rhythm, murmur. Other (unable to assess for JVD due to habitus) - GI/Abdominal GI/Abdominal exam: Present: normal bowel sounds, soft, nontender. Absent: firm, distended, masses. Other (obese) - Extremities Exam Extremities exam: Present: warm, dry. Absent: bruising, calf tenderness, LE edema - Neurological Exam Neurological exam: Present: awake, alert. Absent: agitated, anxious - Psychiatric Psychiatric exam: Present: appropriate, coherent - Skin Skin exam: Present: normal color, warm. Absent: diaphoresis, cyanosis Result/EKG - Labs CBC & BMP: 06/29/16 06:54 06/30/16 08:45 Lab Results: I have reviewed the past 24 hour labs Labs: Laboratory Results - last 24 hr 06/29/16 06/29/16 06/29/16 14:22 15:01 20:13 INR 1.0 PT Patient/Control Mix 10.8 Sodium Potassium Chloride Carbon Dioxide Anion Gap BUN Creatinine GFR Calculation BUN/Creatinine Ratio Glucose POC Glucose 191 H 125 H Calculated Osmolality Calcium Phosphorus Albumin 06/30/16 06/30/16 06/30/16 07:38 08:45 08:45 INR 1.0 PT Patient/Control Mix 10.8 Sodium 133 L Potassium 4.5 Chloride 98 Carbon Dioxide 23 Anion Gap 16.5 H BUN 49 H Creatinine 11.40 H GFR Calculation 6 BUN/Creatinine Ratio 4.00 L Glucose 102 POC Glucose 98 Calculated Osmolality 278.4 Calcium 7.8 L Phosphorus 4.4 Albumin 3.5 06/30/16 10:36 INR PT Patient/Control Mix Sodium Potassium Chloride Carbon Dioxide Anion Gap BUN Creatinine GFR Calculation BUN/Creatinine Ratio Glucose POC Glucose 113 H Calculated Osmolality Calcium Phosphorus Albumin - EKG EKG results: interpreted by me, no acute changes EKG shows: sinus rhythm Quality Measures - VTE Contraindication to Pharmacological VTE Prophylaxis: High Risk of Bleeding - Stroke Symptom Onset Unknown: No - AMI Contraindication to ACEI/ARB: other (ESRD) Contraindications to ASA on arrival: other (Given at HD prior to arrival) Specialty Discharge - Follow Up or Referrals Nelson Malave Attila, MD, personally performed the services described in this documentation, ascribed by Zahraa Barrientos RN in my presence, and it is both accurate and complete 721 .
[2016-06-30] MEDS ORDERED: LIDOCAINE 2%/EPI 20 ML VIAL MISC INJ ONE (17:30)
[2016-06-30] MEDS: WARFARIN 10 MG TABLET PO SCH (17:57)
[2016-06-30] MEDS: ATORVASTATIN 40 MG TABLET PO SCH (21:16)
[2016-07-01 05:49] LABS: Basophils # 0.1 10*3/uL (0.0-0.2); Basophils % 0.7 % (0.0-0.8); Eosinophils # 0.3 10*3/uL (0.0-0.87); Eosinophils % 3.9 % (0.00-10.9); Hematocrit 28.1 VOL% (42.0-52.0); Hemoglobin 8.6 GM/DL (14.0-18.0); Immature Granulocytes % 0.4 %; Immature Granulocytes Absolute 0.03 #; Lymphocytes # 1.4 10*3/uL (1.4-4.0); Lymphocytes % 19.8 % (21.2-54.2); Mean Corpuscular HGB Conc 30.6 GM/DL (32-36); Mean Corpuscular Hemoglobin 29 PG (27-34); Mean Corpuscular Volume 93.4 FL (87-102); Mean Platelet Volume 11.1 FL (9.6-12.0); Monocytes % 14.9 % (1.7-12.7); Neutrophils # 4.2 10*3/uL (1.4-7.4); Neutrophils % 60.3 % (38.7-73.9); Platelet Count 260 T/CUMM (130-400); Red Blood Count 3.01 MC/CUMM (3.8-5.5); Red Cell Distribution Width 17.4 % (9.3-17.3); White Blood Count 6.9 T/CUMM (4-12)
[2016-07-01 06:14] LABS: INR 1.4; PT Patient Result 14.7 SECS
[2016-07-01 06:15] LABS: Calcium 7.8 MG/DL (8.5-10.1); Magnesium 2.4 MG/DL (1.8-2.4); Osmolality,Calculated 281.7 MOS/KG (273-304); Potassium 4.5 MMOL/L (3.5-5.1)
[2016-07-01 06:16] LABS: Albumin 3.2 G/DL (3.4-5.0); Calcium 7.8 MG/DL (8.5-10.1); Osmolality,Calculated 279.8 MOS/KG (273-304); Phosphorous 3.9 MG/DL (2.5-4.9); Potassium 4.4 MMOL/L (3.5-5.1)
--- NOTE | 2016-07-01 08:00 | Pulmonology Progress Note ---
Pulmonary - PN: Subj Interval history: This 65-year-old man and congestive heart failure and has end-stage renal disease. He also has obstructive sleep apnea and I suspect obesity hypoventilation syndrome. He was quite lethargic but is now much more alert. He still continues to take his facemask BiPAP off during the night. He is due for dialysis today. He is not having any fever. 06/24/2016 patient is more alert. He seems to be resistant to using his BiPAP at night. Being evaluated by sleep services. 06/25/2016 patient to have cardiac catheterization. I would recommend general anesthesia for it. Sedation would be difficult to manage with his obesity hypoventilation, chronic hypercarbia. 06/26/2016 patient less dyspneic. When I rounded this morning he was asleep and not wearing his BiPAP or oxygen. I discussed with him once again the need to use the BiPAP overnight. He is for cardiac catheterization today. He should be under general anesthesia for it with his airway controlled. 06/29/2016 patient seems to be better. He was wearing his BiPAP when I entered the room. Dr. Chamorro is addressing getting him a set up at home. Lungs sound clear. Cardiac catheterization showed severe multivessel disease and it was felt best that he have medical management. Should be ready for discharge. 06/30/2016 patient is improved. Arrangements being made for BiPAP post discharge. 07/01/2016 patient being anticoagulated for DVT in his right arm. Would suggest treating this for about 1 month. Another option would be to use Eliquis rather than Coumadin. Defer to hospitalist for that decision. Arrangements being made for BiPAP at home. From pulmonary standpoint he is stable. I will sign off. Please call if needed further. Exam (Progress Note) - Constitutional Vitals: Period Temp Pulse Resp BP Sys/Weldon Pulse Ox Last 24 Hr 96.6 F-98.7 F 69-75 16-20 121-159/60-76 95-99 Exam: Patient is alert and responsive. Vital signs normal. Pupils react to light. Throat is clear. Neck supple no bruits. Chest reveals a few basilar crackles. Heart normal rate rhythm no murmurs. Abdomen soft obese unable to palpate abdominal organs. Extremities no clubbing or cyanosis he has trace of pitting edema in both legs in the right arm. Results - Labs CBC & BMP: 04/05/17 05:42 07/01/16 05:42 Lab Results: I have reviewed the past 24 hour labs Assessment and Plan (1) Obstructive sleep apnea Status: Chronic Assessment and plan: Patient has not been using his CPAP regularly at night. I do not know the details of this diagnosis. 06/23/2016 seems much more alert now than he is using his BiPAP at night. 06/24/2016 important that he get set up to use CPAP or BiPAP at home post discharge. This is being addressed. 06/25/2016 and appears that he is using his BiPAP at night. When it does come off during the night he is pretty lethargic. 06/26/2016 there is a problem with compliance here. Dr. Chamorro is following from sleep services. Hopefully we can get him using his BiPAP or noninvasive facemask mechanical ventilation at night post discharge. 06/29/2016 sleep services working on getting him equipment at home 06/30/[address] Valadez. BiPAP being arranged at home. 07/01/2016 using BiPAP at night here. Arrangements being made for treatment at home. Current Visit: Yes (2) Obesity hypoventilation syndrome Status: Acute Assessment and plan: I suspect he has obesity hypoventilation syndrome that was aggravated by preop for his cardiac catheterization. Agree with using BiPAP and allowing medication to get out of his system. If he still needs a catheterization would either use general anesthesia or minimal sedation. 06/23/2016 PCO2 elevated. 06/24/2016 has elevated PCO2 while awake. In his situation this is due to obesity hypoventilation syndrome. 06/25/2016 chronic ventilatory failure. Needs control of airway when he sedated for procedures such as cardiac catheterization. Would recommend general anesthesia for that. 06/26/2016 because of his severe obesity hypoventilation syndrome, he will need intubation and mechanical ventilation Simons cath. I do not think adequate sedation can be safely obtained for the procedure without intubation 06/29/2016 patient did well with his cardiac catheterization. 06/30/2016 the BiPAP will help obesity hypoventilation syndrome as well. 07/01/2016 needs weight loss long-term. Current Visit: Yes (3) Chest pain Status: Acute Assessment and plan: Denies chest pain at present. 06/25/2016 to have cardiac evaluation for his chest pain. 06/26/2016 defer to cardiology. 06/29/2016 no further chest pain. He has multivessel coronary disease. 07/01/2016 he has had cardiac catheterization and cardiology plans medical management. Current Visit: Yes (4) Decreased hearing Status: Acute Assessment and plan: Etiology of this is not clear 06/23/2016 ENT is evaluating. 06/24/2016 seems to hear me very well this morning. 06/29/2016 this apparently has improved markedly. Current Visit: Yes (5) End stage renal disease Status: Chronic Assessment and plan: He is due for dialysis later today or tomorrow. 06/23/2016 for dialysis today. 06/24/2016 had dialysis yesterday. 06/25/2016 to have dialysis prior to a heart cath. 06/26/2016 had dialysis yesterday. 06/29/2016 continuing Wednesday dialysis 06/30/2016 for dialysis today. 07/01/2016 continuing dialysis. Current Visit: No (6) Ischemic cardiomyopathy Status: Chronic Assessment and plan: No signs of active congestive heart failure. 06/23/2016 defer to cardiology. Current Visit: No Specialty Discharge - Follow Up or Referrals
[2016-07-01] MEDS: ACETAMINOPHEN 325 MG TABLET PO PRN (08:07)
--- NOTE | 2016-07-01 08:36 | Cardiology Progress Note ---
Assessment and Plan (1) Unstable angina Status: Acute Assessment and plan: 65 year old male with PMHx CAD and CABG, ICMO with EF , chronic systolic and diastolic CHF, HTN, IDDM, HLD, TIA, ESRD with HD. Now admitted with USA, hypotension, anemia, and marginally elevated troponins. Most recent cardiac cath in 2014 and had severe triple vessel disease with patent grafts to the right coronary, circumflex, and to the LAD. 1. UA- LHC 06/26 with severe habematolel multivessel CAD with diffuse severe distal disease of the LAD, 3 of 3 grafts patents with moderate disease of RCA graft for continued medical therapy and risk factor modification. EF 55-60%. Continue medical management 2. Anemia. Hematocrit was trending down and he has guaiac positive stools, also copntinuous bleeding from a pulled IV site, that required epi/lido and pressure dressing to stop 3. Nonocclusive jugular clot, thrombophlebitis of the upper extremity 4. Continue metoprolol, statin, add Imdur for CAD/UA 5. He remains high risk for bleeding. I recommend to continue aspirin, Plavix and Coumadin for now, once the INR is between 2 and 3, stop aspirin and continue clopidogrel/Coumadin. Even this may be limited by bleeding issues, will need close FU 6. Consider GI eval. Guaiac + stool. 7. HTN-Well controlled 8. Will need FU with dr. Ambrocio. Adjustment of his antiplatelet/ anticoagulation may be performed with the help of our Coumadin clinic, once gets discharged. Current Visit: Yes (2) Coronary artery disease Status: Chronic Current Visit: Yes Qualifiers: Coronary Disease-Associated Artery/Lesion type: habematolel artery [place] vs. transplanted heart: habematolel heart Associated angina: with unstable angina Qualified Code(s): I25.110 - Atherosclerotic heart disease of habematolel coronary artery with unstable angina pectoris (3) Hyperkalemia Status: Acute Current Visit: Yes (4) Obesity hypoventilation syndrome Status: Acute Current Visit: Yes (5) Obstructive sleep apnea Status: Chronic Assessment and plan: Per reports, he is noncompliant with CPAP. He is currently using BiPAP without difficulty. Pulmonology, Dr. Hartmann, is following. Current Visit: Yes (6) Anemia, chronic disease Status: Chronic Current Visit: Yes (7) End stage renal disease Status: Chronic Assessment and plan: Hemodialysis routinely. Managed per nephrology. Current Visit: Yes (8) Dyslipidemia Status: Chronic Current Visit: Yes (9) Hx of CABG Status: Chronic Current Visit: No (10) Hypertension Status: Chronic Assessment and plan: Continue current medication regimen. Current Visit: Yes Qualifiers: Hypertension type: essential hypertension Qualified Code(s): I10 - Essential (primary) hypertension (11) Ischemic cardiomyopathy Status: Chronic Current Visit: No Cardiology - PN: Subj Interval history: Removed the pressure dressing from the left shoulder. The bleeding stopped, after it was injected with epi/Lido and overnight pressure dressing. The Lovenox was stopped. INR is 1.4. Hematocrit stable. Exam (Progress Note) - Constitutional Vitals: Period Temp Pulse Resp BP Sys/Weldon Pulse Ox Last 24 Hr 96.6 F-98.7 F 69-75 16-20 121-159/60-87 95-99 General appearance: over weight - Head Head exam: Present: normal inspection - Eye Eye exam: Absent: conjunctival injection Pupils: Absent: dilated - ENT ENT exam: Present: normal external ear exam - Neck Neck exam: Present: normal inspection - Respiratory Respiratory exam: Present: clear to auscultation bilaterally - Cardiovascular Cardiovascular exam: Present: regular rate and rhythm, systolic murmur - GI/Abdominal GI/Abdominal exam: Present: normal bowel sounds - Extremities Exam Extremities exam: Present: normal inspection, normal capillary refill, edema (1+ ) - Back Exam Back exam: Present: normal inspection - Neurological Exam Neurological exam: Present: alert, oriented X3 - Psychiatric Psychiatric exam: Present: normal affect, normal mood - Skin Skin exam: Present: normal color, warm. Absent: cyanosis Result/EKG - Labs CBC & BMP: 07/01/16 05:42 07/01/16 05:42 Lab Results: I have reviewed the past 24 hour labs Labs: Laboratory Results - last 24 hr 06/30/16 06/30/16 06/30/16 08:45 08:45 10:36 WBC RBC Hgb Hct MCV MCH MCHC RDW Plt Count MPV Neut % (Auto) Lymph % (Auto) [place] % (Auto) Eos % (Auto) Baso % (Auto) Neut # (Auto) Lymph # (Auto) [place] # (Auto) Eos # (Auto) Baso # (Auto) Immature Gran % Nucleated RBC % Immature Gran # Nucleated RBCs # INR 1.0 PT Patient/Control Mix 10.8 Sodium 133 L Potassium 4.5 Chloride 98 Carbon Dioxide 23 Anion Gap 16.5 H BUN 49 H Creatinine 11.40 H GFR Calculation 6 BUN/Creatinine Ratio 4.00 L Glucose 102 POC Glucose 113 H Calculated Osmolality 278.4 Calcium 7.8 L Phosphorus 4.4 Magnesium Albumin 3.5 06/30/16 06/30/16 07/01/16 17:39 20:52 05:42 WBC RBC Hgb Hct MCV MCH MCHC RDW Plt Count MPV Neut % (Auto) Lymph % (Auto) [place] % (Auto) Eos % (Auto) Baso % (Auto) Neut # (Auto) Lymph # (Auto) [place] # (Auto) Eos # (Auto) Baso # (Auto) Immature Gran % Nucleated RBC % Immature Gran # Nucleated RBCs # INR 1.4 PT Patient/Control Mix 14.7 D Sodium Potassium Chloride Carbon Dioxide Anion Gap BUN Creatinine GFR Calculation BUN/Creatinine Ratio Glucose POC Glucose 87 140 H Calculated Osmolality Calcium Phosphorus Magnesium Albumin 07/01/16 07/01/16 07/01/16 05:42 05:42 05:42 WBC 6.9 D RBC 3.01 L Hgb 8.6 L Hct 28.1 L MCV 93.4 MCH 29 MCHC 30.6 L RDW 17.4 H Plt Count 260 MPV 11.1 Neut % (Auto) 60.3 Lymph % (Auto) 19.8 L [place] % (Auto) 14.9 H Eos % (Auto) 3.9 Baso % (Auto) 0.7 Neut # (Auto) 4.2 Lymph # (Auto) 1.4 [place] # (Auto) 1.0 H Eos # (Auto) 0.3 Baso # (Auto) 0.1 Immature Gran % 0.4 Nucleated RBC % 0.0 Immature Gran # 0.03 Nucleated RBCs # 0.00 INR PT Patient/Control Mix Sodium 138 137 Potassium 4.5 4.4 Chloride 101 100 Carbon Dioxide 26 26 Anion Gap 15.5 H 15.4 H BUN 33 H D 33 H Creatinine 8.70 H 8.60 H GFR Calculation 8 8 BUN/Creatinine Ratio 3.00 L 3.00 L Glucose 99 100 POC Glucose Calculated Osmolality 281.7 279.8 Calcium 7.8 L 7.8 L Phosphorus 3.9 Magnesium 2.4 Albumin 3.2 L 07/01/16 07:21 WBC RBC Hgb Hct MCV MCH MCHC RDW Plt Count MPV Neut % (Auto) Lymph % (Auto) [place] % (Auto) Eos % (Auto) Baso % (Auto) Neut # (Auto) Lymph # (Auto) [place] # (Auto) Eos # (Auto) Baso # (Auto) Immature Gran % Nucleated RBC % Immature Gran # Nucleated RBCs # INR PT Patient/Control Mix Sodium Potassium Chloride Carbon Dioxide Anion Gap BUN Creatinine GFR Calculation BUN/Creatinine Ratio Glucose POC Glucose 101 Calculated Osmolality Calcium Phosphorus Magnesium Albumin Quality Measures - VTE Contraindication to Pharmacological VTE Prophylaxis: High Risk of Bleeding - Stroke Symptom Onset Unknown: No - AMI Contraindication to ACEI/ARB: other (ESRD) Contraindications to ASA on arrival: other (Given at HD prior to arrival) Specialty Discharge - Follow Up or Referrals
[2016-07-01] MEDS: CLOPIDOGREL 75 MG TABLET PO SCH (09:00)
[2016-07-01] MEDS: ASPIRIN EC 81 MG TABLET PO SCH (09:00)
[2016-07-01] MEDS: ISOSORBIDE MONONITRATE 30 MG TABLET PO SCH (09:00)
[2016-07-01] MEDS: PANTOPRAZOLE 40 MG TABLET PO SCH (09:00)
[2016-07-01] MEDS: METOPROLOL TARTRATE 25 MG TABLET PO SCH ×2 (09:00→21:44)
--- NOTE | 2016-07-01 09:32 | Hospitalist Progress Note ---
Assessment and Plan (1) DVT (deep venous thrombosis) Status: Acute Assessment and plan: The patient has deep vein thrombosis of the right upper extremity. He is on therapeutic dose Lovenox at present. We will s continue Coumadin and discontinue Lovenox once INR is therapeutic. Current Visit: Yes Qualifiers: DVT location: upper extremity Laterality: right Chronicity: acute (2) End stage renal disease Status: Chronic Current Visit: No (3) End stage renal disease on dialysis Problem details: No acute indication for HD at this time. Status: Acute Current Visit: No (4) Obesity hypoventilation syndrome Status: Acute Current Visit: Yes Hospitalist: Subjective Interval history: The patient is resting quietly in his room. He has no shortness of breath today. The patient has not complained of angina. He is anxious to go home when possible Exam - Constitutional Vitals: Period Temp Pulse Resp BP Sys/Weldon Pulse Ox Last 24 Hr 96.6 F-98.7 F 69-75 16-20 121-159/60-87 95-99 Exam: Constitutional System: No distress. No tremulousness. Resting in bed on dialysis Head: Normocephalic, atraumatic. Ears, Nose and Throat System: No evidence of Otitis or Mastoiditis. No epistaxis or discharge Eyes System: Pupils equal, round, and reactive. Extraocular muscles intact. Neck: Supple, without adenopathy, No jugular venous distention. No thyromegaly , neck mass, or prior surgery apparent. Respiratory System: Chest clear to auscultation. Cardiovascular System: Heart with regular rate and rhythm. No murmur. GI System: Abdomen soft, nontender. Normo active bowel sounds present. Musculoskeletal System: limbs with dialysis fistula in right upper arm. The arm has some swelling and ultrasound reveals deep vein thrombosis - Expanded ENT Exam Mouth exam: Present: moist Teeth exam: Present: other (Poor dental hygiene) Results - Labs CBC & BMP: 07/01/16 05:42 07/01/16 05:42 Lab Results: I have reviewed the past 24 hour labs Labs: INR equals 1.4 Quality Measures - VTE Contraindication to Pharmacological VTE Prophylaxis: High Risk of Bleeding - Stroke Symptom Onset Unknown: No - AMI Contraindication to ACEI/ARB: other (ESRD) Contraindications to ASA on arrival: other (Given at HD prior to arrival) Specialty Discharge - Follow Up or Referrals
--- NOTE | 2016-07-01 15:57 | Nephrology Progress Note ---
Nephrology - PN: Subj Interval history: Patient is resting comfortably no acute changes. Hemodynamics are stable. No shortness of breath or chest pain. Exam (PN)-Nephrology - Vital Signs Vital signs: Period Temp Pulse Resp BP Sys/Weldon Pulse Ox Last 24 Hr 97.1 F-98.7 F 70-75 16-20 116-159/60-87 93-99 - General Appearance General appearance: well-developed, well-nourished EENT: ATNC Neck: supple Respiratory: clear Cardiology: regular rate, regular rhythm Gastrointestinal: normoactive bowel sounds, no tenderness Neurologic: alert and oriented x3, CN 3-12 intact Musculoskeletal: no clubbing Psychiatric: mood/affect appropriate - Lab 07/01/16 05:42 07/01/16 05:42 Most recent lab results ABG pH 7.238 (7.35-7.45) L 06/22/16 14:05 ABG pCO2 62.5 MM HG (35-48) H 06/22/16 14:05 ABG pO2 151.0 MM HG (80-95) H 06/22/16 14:05 ABG HCO3 23.0 MMOL/L (20-26) 06/22/16 14:05 ABG O2 Saturation 99.3 % (95-100) 06/22/16 14:05 Calcium 7.8 MG/DL (8.5-10.1) L 07/01/16 05:42 Phosphorus 3.9 MG/DL (2.5-4.9) 07/01/16 05:42 Magnesium 2.4 MG/DL (1.8-2.4) 07/01/16 05:42 Assessment and Plan (1) Chest pain Status: Acute Assessment and plan: The patient has a history of cardiac disease. Appreciate input from cardiology. Current Visit: No (2) End stage renal disease Status: Chronic Assessment and plan: Continue with scheduled hemodialysis. Current Visit: No (3) Hypertension Status: Chronic Current Visit: Yes Qualifiers: Hypertension type: essential hypertension Qualified Code(s): I10 - Essential (primary) hypertension (4) Diabetes mellitus Status: Chronic Current Visit: No Qualifiers: Diabetes mellitus type: type 2 Diabetes mellitus complication detail: with chronic kidney disease Chronic kidney disease stage: on chronic dialysis (5) Secondary hyperparathyroidism Status: Chronic Current Visit: No (6) Dyslipidemia Status: Chronic Current Visit: Yes (7) Ischemic cardiomyopathy Status: Chronic Current Visit: No (8) Hx of CABG Status: Chronic Current Visit: No (9) Decreased hearing Status: Acute Current Visit: Yes (10) Decreased hearing of both ears Status: Acute Assessment and plan: Has been evaluated by ENT Current Visit: Yes Specialty Discharge - Follow Up or Referrals
[2016-07-01] MEDS ORDERED: WARFARIN 5 MG TABLET ONE (16:28)
[2016-07-01] MEDS: WARFARIN 10 MG TABLET PO SCH (17:12)
[2016-07-01] MEDS: ATORVASTATIN 40 MG TABLET PO SCH (21:44)
[2016-07-02] MEDS: ACETAMINOPHEN 325 MG TABLET PO PRN (03:01)
[2016-07-02 05:03] LABS: INR 2.3; PT Patient Result 25.1 SECS
[2016-07-02] MEDS: METOPROLOL TARTRATE 25 MG TABLET PO SCH (08:09)
[2016-07-02] MEDS: PANTOPRAZOLE 40 MG TABLET PO SCH (08:09)
[2016-07-02] MEDS: ISOSORBIDE MONONITRATE 30 MG TABLET PO SCH (08:09)
[2016-07-02] MEDS: ASPIRIN EC 81 MG TABLET PO SCH (08:09)
[2016-07-02] MEDS: CLOPIDOGREL 75 MG TABLET PO SCH (08:09)
--- NOTE | 2016-07-02 08:11 | Sleep Medicine Progress Note ---
Assessment and Plan (1) Obstructive sleep apnea Status: Chronic Assessment and plan: Set up for therapy at discharge and follow-up with re-titration results next week. Current Visit: Yes (2) Hypertension Status: Chronic Current Visit: Yes Qualifiers: Hypertension type: essential hypertension Qualified Code(s): I10 - Essential (primary) hypertension (3) Coronary artery disease Status: Chronic Current Visit: No Sleep Medicine Subjective Interval history: Patient seems to be improving with usage of auto BiPAP daily. He is now using it over 8 hours at night and seems to benefit from it. He still has an elevated AHI and has a significant leak with his mask. We will try to set him up for a loaner auto titration BiPAP device at discharge and informally re- titrate him on 07/07/2016 and follow-up in the sleep clinic. I think he will do better with with therapy and will be compliant given our results while hospitalized. Exam (Progress Note) - Constitutional Vitals: Period Temp Pulse Resp BP Sys/Weldon Pulse Ox Last 24 Hr 96.4 F-98.8 F 67-72 16-20 116-146/61-73 93-100 Exam: He is alert and responsive in no acute distress. Chest with fair air movement no focal wheeze or rhonchi. Cardiac exam reveals a regular rhythm without murmur or gallop. Abdomen soft nontender without palpable hepatosplenomegaly or mass. Extremities are without clubbing, cyanosis, or edema. Results - Labs CBC & BMP: 07/01/16 05:42 07/01/16 05:42 Lab Results: I have reviewed the past 24 hour labs Specialty Discharge - Follow Up or Referrals
--- NOTE | 2016-07-02 08:59 | Discharge Summary ---
Hospital Course - Hospital Course Hospital Course: The patient was admitted to the hospital with chest discomfort. The patient did not have myocardial infarction. The patient had cardiology evaluation. Ultrasound of the right upper extremity reveals deep vein thrombosis. We started the patient on Coumadin and this will need adjustment as an outpatient. The patient received hemodialysis treatments on schedule while he was in the hospital. The patient feels well will have dialysis today and is ready for discharge home. INR on the date of discharge is 2.3. On the date of discharge, chest clear and abdomen soft. - Time spent with patient Time with patient DS: Greater than 30 minutes Diagnosis - Discharge Diagnosis (1) DVT (deep venous thrombosis) Status: Chronic (2) End stage renal disease Status: Chronic (3) End stage renal disease on dialysis Status: Chronic (4) Obesity hypoventilation syndrome Status: Chronic Specialty Discharge - Follow Up or Referrals Discharge Plan - Discharge Data Disposition: Disch To Home/Self Care Condition at Discharge: Stable Discharge Diet: advance to your usual diet Activity: resume usual activities as tolerated - Discharge Medications New Clopidogrel [Plavix] 75 mg PO DAILY #60 tablet Isosorbide Mononitrate [Imdur] 30 mg PO DAILY #60 tablet Warfarin [Coumadin] 3 mg PO DAILY@1800 #60 tablet Continue Aspirin EC Tab 81 mg PO DAILY #30 tablet Metoprolol Tartrate Tab [Lopressor Tab] 25 mg PO BID #60 tablet Nitroglycerin Sl Tab [Nitrostat] 0.4 mg SL Q5M PRN #25 tablet PRN Reason: Chest Pain Pantoprazole Tab [Protonix Tab] 40 mg PO DAILY #30 tablet Ranolazine [Ranexa] 500 mg PO BID #60 tablet Atorvastatin [Lipitor] 40 mg PO BEDTIME - Follow Up or Referral - Forms/Instructions Instructions: Coronary Artery Disease (GEN), Left Heart Catheterization (DC), Heart Healthy Diet (GEN) Exam - Constitutional Vitals: Period Temp Pulse Resp BP Sys/Weldon Pulse Ox Last 24 Hr 96.4 F-98.8 F 67-72 16-20 116-146/61-73 93-100 Discharge Results Procedures and tests throughout hospitalization: Pending Orders 06/29/16 17:00 Occult Blood, Stool Routine 07/03/16 04:00 Prothrombin Time INR IN AM Labs on day of discharge: Labs from last 24 hours 07/02/16 07/02/16 07/01/16 07:02 04:32 22:32 INR 2.3 PT Patient/Control Mix 25.1 D POC Glucose 95 141 H 07/01/16 07/01/16 16:40 11:49 INR PT Patient/Control Mix POC Glucose 167 H 169 H DS: Provider Date of admission: 06/20/16 10:01 Primary care physician: . No PCP Attending physician on admission: Maude Goldstein MD Consults: 06/20/16 10:34 Consult to Physician [CONS] Routine Comment: Consulting Provider: Ray Cordova Jr. Consulting Provider Notified: Yes When should Consulting Provider be notified: Now Person Notified: Dr Cordova Date Notified: 06/20/16 Time Notified: 10:36 Consult Notification Comment: saw patient in ED 06/20/16 10:36 Consult to Physician [CONS] Routine Comment: Consulting Provider: Lynette Fabian When should Consulting Provider be notified: Now Consult to Specialist Group: Cardiology When should Consulting Provider be notified: Now Person Notified: Dr Fabian Date Notified: 06/20/16 Time Notified: 13:49 06/21/16 08:25 Consult to Physician [CONS] Routine Comment: decreased hearing Consulting Provider: Fede Jones When should Consulting Provider be notified: In am Consult to Specialist Group: ENT Person Notified: FRED Date Notified: 06/22/16 Time Notified: 08:30 06/22/16 10:25 Consult to Physician [CONS] Routine Comment: Consulting Provider: Sabrina Chamorro When should Consulting Provider be notified: Now 06/22/16 11:16 Consult to Sleep Center [CONS] Routine Reason for Sleep Center: Sleep Center Physician Consult Comment: [facility] 06/22/16 11:37 Consult to Physician [CONS] Routine Comment: BI-pap, low sats, SOB Consulting Provider: Scott Hartmann When should Consulting Provider be notified: Now Consult to Specialist Group: Pulmonology Person Notified: MIKE Date Notified: 06/22/16 Time Notified: 11:45 06/26/16 15:15 Consult to Cardiac Rehabilitation [CONS] Routine Reason for Cardiac Rehabilitation: Risk Factor Modification Discharging clinician: Blaze Heard MD
--- NOTE | 2016-07-02 09:05 | Dialysis Note ---
Dialysis Note - Dialysis Note Mr. Pena is seen during his hemodialysis and stable. He seems to be oriented today and is feeding himself. Blood pressure stable
--- NOTE | 2016-07-02 15:17 | Cardiology Progress Note ---
Assessment and Plan (1) Unstable angina Status: Acute Assessment and plan: 65 year old male with PMHx CAD and CABG, ICMO with EF , chronic systolic and diastolic CHF, HTN, IDDM, HLD, TIA, ESRD with HD. Now admitted with USA, hypotension, anemia, and marginally elevated troponins. Most recent cardiac cath in 2014 and had severe triple vessel disease with patent grafts to the right coronary, circumflex, and to the LAD. -UA- LHC 06/26 with severe [place] multivessel CAD with diffuse severe distal disease of the LAD, 3 of 3 grafts patents with moderate disease of RCA graft for continued medical therapy and risk factor modification. EF 55-60%. Continue medical management -Anemia. Hematocrit was trending down and he has guaiac positive stools. He had several bleeding issues during his hospitalization, after pulled IV, and now , from the hemodialysis fistula. INR is not therapeutic, he is getting anticoagulated for jugular vein and upper extremity thrombus. -Continue Plavix and Coumadin. Stop the aspirin. -Continue metoprolol, statin, Imdur -Consider GI eval. Guaiac + stool. -HTN-Well controlled -Will need FU with dr. Ambrocio Current Visit: Yes (2) Coronary artery disease Status: Chronic Current Visit: Yes Qualifiers: Coronary Disease-Associated Artery/Lesion type: [place] artery [place] vs. transplanted heart: [place] heart Associated angina: with unstable angina Qualified Code(s): I25.110 - Atherosclerotic heart disease of [place] coronary artery with unstable angina pectoris (3) Hyperkalemia Status: Acute Current Visit: Yes (4) Obesity hypoventilation syndrome Status: Chronic Current Visit: Yes (5) Obstructive sleep apnea Status: Chronic Assessment and plan: Per reports, he is noncompliant with CPAP. He is currently using BiPAP without difficulty. Pulmonology, Dr. Hartmann, is following. Current Visit: Yes (6) Anemia, chronic disease Status: Chronic Current Visit: Yes (7) End stage renal disease Status: Chronic Assessment and plan: Hemodialysis routinely. Managed per nephrology. Current Visit: Yes (8) Dyslipidemia Status: Chronic Current Visit: Yes (9) Hx of CABG Status: Chronic Current Visit: No (10) Hypertension Status: Chronic Assessment and plan: Continue current medication regimen. Current Visit: Yes Qualifiers: Hypertension type: essential hypertension Qualified Code(s): I10 - Essential (primary) hypertension (11) Ischemic cardiomyopathy Status: Chronic Current Visit: No Cardiology - PN: Subj Interval history: He is feeling fine. Today, he developed persistent bleeding from his right arm fistula, postdialysis. INR is therapeutic. He still getting aspirin and Plavix. Exam (Progress Note) - Constitutional Vitals: Period Temp Pulse Resp BP Sys/Weldon Pulse Ox Last 24 Hr 96.4 F-98.8 F 67-72 16-20 120-146/61-73 96-100 General appearance: over weight - Head Head exam: Present: normal inspection - Eye Eye exam: Absent: conjunctival injection Pupils: Absent: dilated - ENT ENT exam: Present: normal external ear exam - Neck Neck exam: Present: normal inspection - Respiratory Respiratory exam: Present: clear to auscultation bilaterally. Absent: prolonged expiratory phase - Cardiovascular Cardiovascular exam: Present: regular rate and rhythm. Absent: gallop - GI/Abdominal GI/Abdominal exam: Present: normal bowel sounds. Absent: distended - Extremities Exam Extremities exam: Present: normal inspection, normal capillary refill, other ( The right fistula is oozing slowly.). Absent: edema - Neurological Exam Neurological exam: Present: alert, oriented X3 - Psychiatric Psychiatric exam: Present: normal affect, normal mood - Skin Skin exam: Present: normal color, warm. Absent: cyanosis Result/EKG - Labs CBC & BMP: 07/01/16 05:42 07/01/16 05:42 Lab Results: I have reviewed the past 24 hour labs Labs: Laboratory Results - last 24 hr 07/01/16 07/01/16 07/02/16 16:40 22:32 04:32 INR 2.3 PT Patient/Control Mix 25.1 D POC Glucose 167 H 141 H 07/02/16 07:02 INR PT Patient/Control Mix POC Glucose 95 - EKG EKG results: interpreted by me Quality Measures - VTE Contraindication to Pharmacological VTE Prophylaxis: High Risk of Bleeding - Stroke Symptom Onset Unknown: No - AMI Contraindication to ACEI/ARB: other (ESRD) Contraindications to ASA on arrival: other (Given at HD prior to arrival) Specialty Discharge - Follow Up or Referrals Follow up with: Raj Ambrocio MD [Physician] - 07/16/16 12:50 pm (Also, his INR needs to be followed at the coumadin clinic or during HD. Goal INR 2-3)
[2016-07-02 16:07] VITALS: BP 147/70
== END 2016-07-02 16:27 | disposition home or self-care (01) | DRG 286 ==
LOC: EDBD → EDUNIT# → N.ED 07:44 → SUATTDRO 10:01 → N.EDINP 10:18 → N.TELES 10:20 → N.ICU 06-26 16:41 → N.TELEN 06-27 11:41
PROVIDERS: ADMIT Internal Medicine; ATTEND Internal Medicine